=== PATIENT | female | born 1950 | race American Indian/Alaskan Native ===

== ENCOUNTER 2017-09-09 13:38 | Inpatient (IN) | payer BC, MEDICARE ==
[2017-09-09] MEDS ORDERED: Albuterol-Ipratrop 3 mg / 0.5 (3 ml) UD IH PRN (22:19)
--- NOTE | 2017-09-09 22:31 | CP.PCM.HP ---
History of Present Illness - History of Present Illness History of Present Illness: PCP: Po De Santiago MD Chief complaint: Right side weakness The patient was seen and examined in the Rehab Unit with the present HPI: The hx was obtained from the patient's and after review of the medical records. The patient was transferred from the [facility] to the [facility] unit for continued care and Physical therapy. She is a 67 years old female with hx of HTN, CAD with stents, Multiple CVAs, admitted to the [facility] on 08/12/17 and discharged on 08/13/17 with right hand weakness and diagnosed with TIA. she was again admitted to the [facility] on with Motor Aphasia, Right side weakness and diagnosed with acute CVA. With MOLD [facility]LOADER on 09/01/17 she was transferred to the ICU with respiratory Distress and hypertension while in [facility]. LYRIC showed an Aneurysmal Atrial Septum with a Tiny PFO. at present the patient still has dense Right hemiplegia. PMH: HTN; DM II Insulin requiring; CAD with stents; CKD II; Multiples CVA the first with right side weakness on 04/10; GERD PSH: cataract extraction 2014; Cardiac Cath; Benign fibroid tumor Removed 2000; benign breast Tumor removed 1978, Permanent Pacemaker SH: never Smoked; No ETOH; No illegal substance use; live with family FH: States: No Known family hx Allergies: Sulfa Antibiotics; Oxycodone; Bacitracin; Fentanyl Medication: Reviewed Present on Admission - Present on Admission Any Indicators Present on Admission: No History of DVT/PE: No History of Uncontrolled Diabetes: No Urinary Catheter: No Decubitus Ulcer Present: No Review of Systems - Review of Systems Review of Systems: Renew of system is limited because of the patient;s dysarthria - Constitutional Constitutional: absent: Anorexia, Chills, Fever, Headache - EENT Eyes: Requires Corrective Lenses. absent: Diplopia, Floaters Ears: absent: Decreased Hearing, Ear Discharge, Tinnitus Nose/Mouth/Throat: absent: Epistaxis, Nasal Congestion, Sinus Pain, Sinus Pressure - Cardiovascular Cardiovascular: absent: Chest Pain - Respiratory Respiratory: absent: Cough, Dyspnea - Gastrointestinal Gastrointestinal: Constipation. absent: Diarrhea, Vomiting - Genitourinary Genitourinary: absent: Dysuria, Flank Pain, Hematuria - Musculoskeletal Musculoskeletal: Muscle Weakness - Integumentary Integumentary: absent: Skin Ulcer, Swelling - Neurological Neurological: Focal Weakness. absent: Confusion - Psychiatric Psychiatric: absent: Anxiety, Depression, Panic Attacks - Endocrine Endocrine: absent: Palpitations, Polydipsia, Polyphagia, Polyuria - Hematologic/Lymphatic Hematologic: absent: Easy Bleeding, Easy Bruising Past Patient History - Infectious Disease Hx of Infectious Diseases: None - Tetanus Immunizations Tetanus Immunization: Unknown - Past Medical History & Family History Past Medical History?: Yes - Past Social History Smoking Status: Never Smoked Chewing Tobacco Use: No Cigar Use: No Alcohol: None Drugs: Denies Home Situation {Lives}: With Family - CARDIAC Hx Cardiac Disorders: Yes Hx Hypertension: Yes - PULMONARY Hx Respiratory Disorders: No - NEUROLOGICAL HX Cerebrovascular Accident: Yes (multiple ischemic strokes) - HEENT Hx Cataracts: Yes (bl sx 2014) - RENAL Hx Chronic Kidney Disease: Yes Other/Comment: stage 2 renal disease - ENDOCRINE/METABOLIC Hx Diabetes Mellitus Type 2: Yes - HEMATOLOGICAL/ONCOLOGICAL Hx Blood Disorders: No - INTEGUMENTARY Hx Dermatological Problems: Yes Other/Comment: b/l skin discolorations both legs and itchy skin - MUSCULOSKELETAL/RHEUMATOLOGICAL Hx Musculoskeletal Disorders: No Hx Falls: No Other/Comment: 5th toe right ft turn inward pt keeps bandaid on toe to protect nail, 2nd toe crooked instep turns inward,left foot bunyon - GASTROINTESTINAL Hx Gastrointestinal Disorders: Yes Hx Gastroesophageal Reflux: Yes Other/Comment: H.Pylori - GENITOURINARY/GYNECOLOGICAL Hx Genitourinary Disorders: No - PSYCHIATRIC Hx Emotional Abuse: No Hx Physical Abuse: No Hx Substance Use: No - SURGICAL HISTORY Hx Cardiac Catheterization: Yes (2012) Other/Comment: pacemaker, breast sx 05/29/1984 left benign tumor, benign fibroid tumor removal 2000, colon polyps removed via colonoscopy, fishbome extraction via bronchoscopy from throat - ANESTHESIA Hx Anesthesia Reactions: Yes ("AWARE OF SURROUNDINGS BUT UNABLE TO MOVE FOR A WHILE") Hx Malignant Hyperthermia: No Meds Allergies/Adverse Reactions: Allergies Allergy/AdvReac Type Severity Reaction Status Date / Time Sulfa (Sulfonamide Allergy Severe RASH Verified 08/12/17 08:03 Antibiotics) acetaminophen [From Percocet] AdvReac Severe NAUSEA/VOMI Verified 08/12/17 08:03 TING oxycodone HCl [From Percocet] AdvReac Severe NAUSEA/VOMI Verified 08/12/17 08:03 TING bacitracin AdvReac Mild RASH Verified 08/12/17 08:03 clonidine AdvReac Mild "FEELING Verified 08/12/17 08:03 VERY VAGUE & CLOUDY WHEN TAKING" fentanyl AdvReac VOMITING Verified 08/12/17 08:03 Physical Exam - Constitutional Appears: No Acute Distress - Head Exam Head Exam: ATRAUMATIC, NORMAL INSPECTION, NORMOCEPHALIC - Eye Exam Eye Exam: EOMI, Normal appearance Pupil Exam: NORMAL ACCOMODATION, PERRL - ENT Exam ENT Exam: Mucous Membranes Dry, Normal Exam. absent: Normal External Ear Exam - Neck Exam Neck exam: Positive for: Full Rom, Normal Inspection. Negative for: Lymphadenopathy, Tenderness - Respiratory Exam Respiratory Exam: Clear to Auscultation Bilateral. absent: Rales, Rhonchi, Wheezes - Cardiovascular Exam Cardiovascular Exam: REGULAR RHYTHM, RRR, +S1, +S2 - GI/Abdominal Exam GI & Abdominal Exam: Normal Bowel Sounds, Soft. absent: Mass, Organomegaly, Tenderness - Rectal Exam Rectal Exam: Deferred - Extremities Exam Extremities exam: Positive for: normal inspection. Negative for: pedal edema Additional comments: Right ankle tenderness - Back Exam Back exam: NORMAL INSPECTION. absent: CVA tenderness (L), CVA tenderness (R) - Neurological Exam Additional comments: Awake, alert, oritnted, right facial droop, dysarthric, motor strength 0/5 at right upper extremity and1/5 at right lower extremity - Psychiatric Exam Psychiatric exam: Normal Affect, Normal Mood - Skin Skin Exam: Dry, Intact, Normal Color, Warm Results - Labs Labs: Laboratory Results - last 24 hr 09/09/17 22:18 POC Glucose (mg/dL) 159 H Assessment & Plan - Assessment and Plan (Free Text) Assessment: #. Acute CVA with right hemiplegia #. HTN #. DM II Insulin requiring #. CAD Plan: 67 years old female with hx of HTN, CAD with stents, Multiple CVAs, admitted to the [facility] on 08/12/17 and discharged on 08/13/17 with right hand weakness and diagnosed with TIA. She was again admitted to the [facility] on 08/29/17 with Motor Aphasia, Right side weakness and diagnosed with acute CVA. #. Acute CVA with right hemiplegia - Consult Dr Strell Surgical Rn - OT/PT - Speech therapy - ASA - Lipitor - Coumadin #. HTN - Procardia XL - Cozaar -Clonidine - Follow Blood Pressure #. DM II Insulin requiring - Levemir - Regular insulin sliding scale according to accucheck - HbA1c 8.0 on 08/29/17 #. CAD with stent - ASA - Lipitor #. Stress Ulcer Prophylaxis with Pepcid #. DVT prophylaxis: Patient on Coumadin #. Code Status: Full - Date & Time Date: 09/09/17 Time: 22:31
[2017-09-10] MEDS: Insulin Detemir 100 Units/ml Inj SC SCH ×2 (00:03→21:26)
[2017-09-10] MEDS: Insulin Regular 100 units/ml SC SCH ×5 (00:05→21:27)
[2017-09-10 01:05] VITALS: BMI 28.0
[2017-09-10 06:54] LABS: HEMOGLOBIN 8.8 g/dL (12.0-16.0); MEAN CELL VOLUME 85.4 fl (81.0-99.0); MEAN CORPUSCULAR HEMOGLOBIN 26.6 pg (27.0-31.0); MEAN CORPUSCULAR HGB CONC 31.2 g/dL (33.0-37.0); RBC 3.31 Mil/uL (3.80-5.20); RED CELL DISTRIBUTION WIDTH 17.2 % (11.5-14.5); WHITE BLOOD COUNT 6.7 K/uL (4.8-10.8)
[2017-09-10 07:06] LABS: ALB/GLOB RATIO 0.8 (1.0-2.1); ALBUMIN 2.8 g/dL (3.5-5.0); CALCIUM 8.4 mg/dL (8.4-10.2)
[2017-09-10 07:10] LABS: INR 1.4 (0.9-1.2); PROTHROMBIN TIME 15.5 Seconds (9.8-13.1)
[2017-09-10] MEDS: NIFEdipine 60 mg ER Tab PO SCH (09:18)
[2017-09-10] MEDS: POLYETHYLENE GLYCOL 3350 17 GM/Dose PACKET PO SCH (09:18)
--- NOTE | 2017-09-10 11:14 | CP.PCM.PN ---
Subjective - Date & Time of Evaluation Date of Evaluation: 09/10/17 Time of Evaluation: 10:00 - Subjective Subjective: Patient seen and examined. Therapist claimed she was complaining of pain and swelling on the right ankle. Unable to determine if she had trauma since patient has expressive aphasia. Objective - Vital Signs/Intake and Output Vital Signs (last 24 hours): Temp Pulse Resp BP Pulse Ox 98.1 F 96 H 19 147/61 96 09/10/17 09:06 09/10/17 09:18 09/10/17 09:06 09/10/17 09:18 09/10/17 09:06 - Medications Medications: Current Medications Acetaminophen (Tylenol 325mg Tab) 650 mg PO Q4 PRN PRN Reason: Fever >100.4 F Acetaminophen (Tylenol 325mg Tab) 650 mg PO Q4 PRN PRN Reason: Pain, Mild (1-3) Albuterol/Ipratropium (Duoneb 3 Mg/0.5 Mg (3 Ml) Ud) 3 ml IH RQ6 PRN PRN Reason: Shortness of Breath Aspirin (Ecotrin) 81 mg PO DAILY [facility] Last Admin: 09/10/17 09:18 Dose: 81 mg Atorvastatin Calcium (Lipitor) 20 mg PO DIN [facility] Carvedilol (Coreg) 12.5 mg PO BID [facility] Last Admin: 09/10/17 09:16 Dose: 12.5 mg Clonidine HCl (Catapres) 0.1 mg PO BID [facility] Last Admin: 09/10/17 09:14 Dose: 0.1 mg Docusate Sodium (Colace Liquid) 100 mg PO TID [facility] Last Admin: 09/10/17 09:16 Dose: 100 mg Famotidine (Pepcid) 20 mg PO DAILY [facility] Last Admin: 09/10/17 09:18 Dose: 20 mg Furosemide (Lasix) 20 mg PO DAILY [facility] Last Admin: 09/10/17 09:18 Dose: 20 mg Insulin Detemir (Levemir) 10 units SC HS [facility] Last Admin: 09/10/17 00:03 Dose: 10 units Insulin Human Regular (Humulin R) 0 units SC [facility] PRN Reason: Protocol Last Admin: 09/10/17 07:00 Dose: Not Given Losartan Potassium (Cozaar) 100 mg PO DAILY [facility] Last Admin: 09/10/17 09:17 Dose: 100 mg Nifedipine (Procardia Xl) 60 mg PO DAILY [facility] Last Admin: 09/10/17 09:18 Dose: 60 mg Ondansetron HCl (Zofran Odt) 4 mg PO Q8H PRN PRN Reason: Nausea/Vomiting Polyethylene Glycol (Miralax) 17 gm PO DAILY [facility] Last Admin: 09/10/17 09:18 Dose: 17 gm Valproate Sodium (Depakene Cap) 250 mg PO BID [facility] Warfarin Sodium (Coumadin) 3 mg PO 1800 [facility] PRN Reason: Protocol Stop: 09/10/17 18:01 Warfarin Sodium (Coumadin) 4 mg PO QD5 [facility] PRN Reason: Protocol Stop: 09/10/17 17:01 - Labs Labs: 09/10/17 06:45 09/10/17 06:45 PT 15.5 Seconds (9.8-13.1) H 09/10/17 06:45 INR 1.4 (0.9-1.2) H 09/10/17 06:45 - Constitutional Appears: No Acute Distress - Head Exam Head Exam: ATRAUMATIC - Eye Exam Eye Exam: absent: Scleral icterus - ENT Exam ENT Exam: Mucous Membranes Moist - Neck Exam Neck Exam: absent: Meningismus - Respiratory Exam Respiratory Exam: absent: Rhonchi, Wheezes, Respiratory Distress - Cardiovascular Exam Cardiovascular Exam: REGULAR RHYTHM, +S1, +S2 - GI/Abdominal Exam GI & Abdominal Exam: Soft. absent: Tenderness - Rectal Exam Rectal Exam: Deferred - Extremities Exam Extremities Exam: Joint Swelling (right ankle swollen and tender) - Back Exam Back Exam: absent: tenderness - Neurological Exam Neurological Exam: Alert (orientation unable to gauge) - Psychiatric Exam Psychiatric exam: Normal Affect - Skin Skin Exam: Dry, Intact Assessment and Plan - Assessment and Plan (Free Text) Assessment: 67 yo female with history of HTN, CAD with stents, previous CVA and Atrial Flutter with pacemaker initially admitted as TIA at [facility] on 2017 then turned into a full blown ischemic stroke of the left frontal on 2017 with right facial and right arm weakness accompanied with expressive aphasia. Patient was on low dose Eliquis 2.5mg PO BID then raised to therapeutic dose of 5mg PO BID when patient developed full blown stroke. Then on 09/03/2017 it was switched to Coumadin because of patient's poor renal function which has improved since then. Patient was transferred to Acute Rehab for PT/OT/ST. 1. Acute CVA with right hemiplegia/expressive aphasia Dr Connro on physiatry consult continue ASA and statin reconsult Dr Zhao for follow up and inquire if we can resume Eliquis at therapeutic dose (patient was under dosed at 2.5mg) INR: 1.4 Coumadin 4mg PO today 2. HTN BP stable continue Losartan, Coreg, Clonidine, Procardia XL and Lasix 3. DM II BS controlled Levemir 10 units SC HS accucheck with Regular Insulin coverage HbA1c 8.0 4. CAD with stent continue ASA, BB and statin 5. Atrial flutter on pacemaker on Coumadin and
--- NOTE | 2017-09-10 11:40 | CP.PCM.PN ---
Subjective - Date & Time of Evaluation Date of Evaluation: 09/10/17 Time of Evaluation: 11:37 - Subjective Subjective: Ms. Ricki Riojas was seen and examined at the therapy room. She is alert with expressive aphasia with few clear words being uttered such as " yes, I'm fine". She communicates using non verbal cues such as nodding or shaking her head with occasional clear words being uttered.She denies any headache, dizziness, lightheadedness, blurred vision. She remains with Right facial droop, right upper arm flaccid, and right lower extremity weakness. Her right ankle is swollen and currently wrapped with clarita bandage. Pending right foot x-ray. She is able to follow simple commands. There was no untoward events overnight. Objective - Vital Signs/Intake and Output Vital Signs (last 24 hours): Temp Pulse Resp BP Pulse Ox 98.1 F 96 H 19 147/61 96 09/10/17 09:06 09/10/17 09:18 09/10/17 09:06 09/10/17 09:18 09/10/17 09:06 - Medications Medications: Current Medications Acetaminophen (Tylenol 325mg Tab) 650 mg PO Q4 PRN PRN Reason: Fever >100.4 F Acetaminophen (Tylenol 325mg Tab) 650 mg PO Q4 PRN PRN Reason: Pain, Mild (1-3) Albuterol/Ipratropium (Duoneb 3 Mg/0.5 Mg (3 Ml) Ud) 3 ml IH RQ6 PRN PRN Reason: Shortness of Breath Aspirin (Ecotrin) 81 mg PO DAILY [facility] Last Admin: 09/10/17 09:18 Dose: 81 mg Atorvastatin Calcium (Lipitor) 20 mg PO DIN [facility] Carvedilol (Coreg) 12.5 mg PO BID [facility] Last Admin: 09/10/17 09:16 Dose: 12.5 mg Clonidine HCl (Catapres) 0.1 mg PO BID [facility] Last Admin: 09/10/17 09:14 Dose: 0.1 mg Docusate Sodium (Colace Liquid) 100 mg PO TID [facility] Last Admin: 09/10/17 09:16 Dose: 100 mg Famotidine (Pepcid) 20 mg PO DAILY [facility] Last Admin: 09/10/17 09:18 Dose: 20 mg Furosemide (Lasix) 20 mg PO DAILY [facility] Last Admin: 09/10/17 09:18 Dose: 20 mg Insulin Detemir (Levemir) 10 units SC HS [facility] Last Admin: 09/10/17 00:03 Dose: 10 units Insulin Human Regular (Humulin R) 0 units SC ACHS [facility] PRN Reason: Protocol Last Admin: 09/10/17 07:00 Dose: Not Given Losartan Potassium (Cozaar) 100 mg PO DAILY [facility] Last Admin: 09/10/17 09:17 Dose: 100 mg Nifedipine (Procardia Xl) 60 mg PO DAILY [facility] Last Admin: 09/10/17 09:18 Dose: 60 mg Ondansetron HCl (Zofran Odt) 4 mg PO Q8H PRN PRN Reason: Nausea/Vomiting Polyethylene Glycol (Miralax) 17 gm PO DAILY [facility] Last Admin: 09/10/17 09:18 Dose: 17 gm Valproate Sodium (Depakene Cap) 250 mg PO BID [facility] Warfarin Sodium (Coumadin) 4 mg PO QD5 [facility] PRN Reason: Protocol Stop: 09/10/17 17:01 - Labs Labs: 09/10/17 06:45 09/10/17 06:45 PT 15.5 Seconds (9.8-13.1) H 09/10/17 06:45 INR 1.4 (0.9-1.2) H 09/10/17 06:45 - Constitutional Appears: No Acute Distress - Head Exam Head Exam: NORMAL INSPECTION - Neurological Exam Neurological Exam: Alert, Awake Neuro motor strength exam: Left Upper Extremity: 5, Right Upper Extremity: 0, Left Lower Extremity: 5, Right Lower Extremity: 2/1 Additional comments: She has expressive aphasia, communicates using non verbal cues such as nodding or shaking her head with occasional clear words being uttered. She is able to follow commands. Sensation remains asymmetrical. Assessment and Plan (1) Acute CVA (cerebrovascular accident) Assessment & Plan: Case discussed with Dr. Zhao, continue all current medical including anti- platelet and anti coagulant, physical, occupational, and speech therapies. Recommend blood pressure control, blood sugar control. Status: Acute
--- NOTE | 2017-09-10 12:30 | RAD ---
PROCEDURE: Right Ankle Radiographs. HISTORY: pain and swelling on right ankle COMPARISON: None FINDINGS: BONES: No acute fracture. JOINTS: Ankle mortise maintained. Talar dome intact SOFT TISSUES: Soft-tissue swelling. OTHER FINDINGS: None. IMPRESSION: No demonstrated fracture or dislocation.
[2017-09-10] MEDS: Valproic Acid 250 mg/5 ml UD Cup PO SCH ×2 (13:15→17:36)
--- NOTE | 2017-09-10 16:33 | CP.PCM.CON ---
History of Present Illness - History of Present Illness History of Present Illness: Dr Connor PMR consultation on Mariola Robison, right hand dominant female born [birth year] who has been admitted to [facility] for acute inpatient rehabilitation following a left CVA with dense right HP. There are some word findings issues as well for Mariola Review of Systems - Constitutional Constitutional: absent: Chills - EENT Eyes: absent: Blind Spots, Blurred Vision Ears: absent: Decreased Hearing, Ear Discharge Nose/Mouth/Throat: absent: Nasal Congestion - Cardiovascular Cardiovascular: absent: Chest Pain - Respiratory Respiratory: absent: Dyspnea, Hemoptysis - Gastrointestinal Gastrointestinal: absent: Belching - Genitourinary Genitourinary: absent: Dysuria - Musculoskeletal Musculoskeletal: Abnormal Gait - Integumentary Integumentary: absent: Acne, Bleeding Lesions - Neurological Neurological: Lack of Coordination, Weakness. absent: Abnormal Hearing, Abnormal Movements - Psychiatric Psychiatric: absent: Anxiety Past Patient History - Infectious Disease Hx of Infectious Diseases: None - Tetanus Immunizations Tetanus Immunization: Unknown - Past Medical History & Family History Past Medical History?: Yes - Past Social History Smoking Status: Never Smoked Chewing Tobacco Use: No Cigar Use: No Alcohol: None Drugs: Denies Home Situation {Lives}: With Family - CARDIAC Hx Cardiac Disorders: Yes Hx Hypertension: Yes - PULMONARY Hx Respiratory Disorders: No - NEUROLOGICAL HX Cerebrovascular Accident: Yes - HEENT Hx Cataracts: Yes (bl sx 2014) - RENAL Hx Chronic Kidney Disease: Yes Other/Comment: stage 2 renal disease - ENDOCRINE/METABOLIC Hx Diabetes Mellitus Type 2: Yes - HEMATOLOGICAL/ONCOLOGICAL Hx Blood Disorders: No - INTEGUMENTARY Hx Dermatological Problems: Yes Other/Comment: b/l skin discolorations both legs and itchy skin - MUSCULOSKELETAL/RHEUMATOLOGICAL Hx Musculoskeletal Disorders: No Hx Falls: No Other/Comment: 5th toe right ft turn inward pt keeps bandaid on toe to protect nail, 2nd toe crooked instep turns inward,left foot bunyon - GASTROINTESTINAL Hx Gastroesophageal Reflux: Yes - GENITOURINARY/GYNECOLOGICAL Hx Genitourinary Disorders: No - PSYCHIATRIC Hx Emotional Abuse: No Hx Physical Abuse: No Hx Substance Use: No - SURGICAL HISTORY Hx Cardiac Catheterization: Yes (2012) Other/Comment: pacemaker, breast sx 05/29/1984 left benign tumor, benign fibroid tumor removal 2000, colon polyps removed via colonoscopy, fishbome extraction via bronchoscopy from throat - ANESTHESIA Hx Anesthesia Reactions: Yes ("AWARE OF SURROUNDINGS BUT UNABLE TO MOVE FOR A WHILE") Hx Malignant Hyperthermia: No Meds Allergies/Adverse Reactions: Allergies Allergy/AdvReac Type Severity Reaction Status Date / Time Sulfa (Sulfonamide Allergy Severe RASH Verified 09/10/17 05:07 Antibiotics) acetaminophen [From Percocet] AdvReac Severe NAUSEA/VOMI Verified 09/10/17 05:07 TING oxycodone HCl [From Percocet] AdvReac Severe NAUSEA/VOMI Verified 09/10/17 05:07 TING bacitracin AdvReac Mild RASH Verified 09/10/17 05:07 clonidine AdvReac Mild "FEELING Verified 09/10/17 05:07 VERY VAGUE & CLOUDY WHEN TAKING" fentanyl AdvReac VOMITING Verified 09/10/17 05:07 - Medications Medications: Current Medications Acetaminophen (Tylenol 325mg Tab) 650 mg PO Q4 PRN PRN Reason: Fever >100.4 F Acetaminophen (Tylenol 325mg Tab) 650 mg PO Q4 PRN PRN Reason: Pain, Mild (1-3) Albuterol/Ipratropium (Duoneb 3 Mg/0.5 Mg (3 Ml) Ud) 3 ml IH RQ6 PRN PRN Reason: Shortness of Breath Aspirin (Ecotrin) 81 mg PO DAILY [facility] Last Admin: 09/10/17 09:18 Dose: 81 mg Atorvastatin Calcium (Lipitor) 20 mg PO DIN [facility] Carvedilol (Coreg) 12.5 mg PO BID [facility] Last Admin: 09/10/17 09:16 Dose: 12.5 mg Clonidine HCl (Catapres) 0.1 mg PO BID [facility] Last Admin: 09/10/17 09:14 Dose: 0.1 mg Docusate Sodium (Colace Liquid) 100 mg PO TID [facility] Last Admin: 09/10/17 13:15 Dose: 100 mg Famotidine (Pepcid) 20 mg PO DAILY [facility] Last Admin: 09/10/17 09:18 Dose: 20 mg Furosemide (Lasix) 20 mg PO DAILY [facility] Last Admin: 09/10/17 09:18 Dose: 20 mg Insulin Detemir (Levemir) 10 units SC HS [facility] Last Admin: 09/10/17 00:03 Dose: 10 units Insulin Human Regular (Humulin R) 0 units SC ACHS [facility] PRN Reason: Protocol Last Admin: 09/10/17 13:16 Dose: 1 units Losartan Potassium (Cozaar) 100 mg PO DAILY [facility] Last Admin: 09/10/17 09:17 Dose: 100 mg Nifedipine (Procardia Xl) 60 mg PO DAILY [facility] Last Admin: 09/10/17 09:18 Dose: 60 mg Ondansetron HCl (Zofran Odt) 4 mg PO Q8H PRN PRN Reason: Nausea/Vomiting Polyethylene Glycol (Miralax) 17 gm PO DAILY [facility] Last Admin: 09/10/17 09:18 Dose: 17 gm Valproate Sodium (Depakene Oral Soln) 250 mg PO BID [facility] Last Admin: 09/10/17 13:15 Dose: 250 mg Warfarin Sodium (Coumadin) 4 mg PO QD5 [facility] PRN Reason: Protocol Stop: 09/10/17 17:01 Physical Exam - Constitutional Appears: Non-toxic - Head Exam Head Exam: ATRAUMATIC - Eye Exam Eye Exam: EOMI - ENT Exam ENT Exam: Mucous Membranes Moist - Respiratory Exam Respiratory Exam: NORMAL BREATHING PATTERN - Cardiovascular Exam Cardiovascular Exam: REGULAR RHYTHM - GI/Abdominal Exam GI & Abdominal Exam: absent: Distended, Firm - Extremities Exam Extremities exam: Negative for: calf tenderness - Neurological Exam Neurological exam: Alert, CN II-XII Intact (some dysarthria), Oriented x3 - Psychiatric Exam Psychiatric exam: Normal Affect, Normal Mood Results - Vital Signs Recent Vital Signs: Last Vital Signs Temp 98.1 F 09/10/17 09:06 Pulse 96 H 09/10/17 09:18 Resp 19 09/10/17 09:06 BP 147/61 09/10/17 09:18 Pulse Ox 96 09/10/17 09:06 - Labs Result Diagrams: 09/10/17 06:45 09/10/17 06:45 Labs: Laboratory Results - last 24 hr 09/09/17 09/10/17 09/10/17 22:18 06:16 06:45 WBC 6.7 RBC 3.31 L Hgb 8.8 L Hct 28.3 L MCV 85.4 MCH 26.6 L MCHC 31.2 L RDW 17.2 H Plt Count 165 PT INR Sodium Potassium Chloride Carbon Dioxide Anion Gap BUN Creatinine Est GFR ( Amer) Est GFR (Non-Af Amer) POC Glucose (mg/dL) 159 H 102 Random Glucose Calcium Total Bilirubin AST ALT Alkaline Phosphatase Total Protein Albumin Globulin Albumin/Globulin Ratio 09/10/17 09/10/17 09/10/17 06:45 06:45 11:31 WBC RBC Hgb Hct MCV MCH MCHC RDW Plt Count PT 15.5 H INR 1.4 H Sodium 144 Potassium 3.7 Chloride 109 H Carbon Dioxide 25 Anion Gap 14 BUN 18 H Creatinine 1.1 Est GFR ( Amer) 60 Est GFR (Non-Af Amer) 50 POC Glucose (mg/dL) 175 H Random Glucose 92 Calcium 8.4 Total Bilirubin 0.3 AST 18 ALT 30 Alkaline Phosphatase 58 Total Protein 6.3 Albumin 2.8 L Globulin 3.5 Albumin/Globulin Ratio 0.8 L Assessment & Plan - Assessment and Plan (Free Text) Assessment: PT/OT to continue to help increase functional independence Team conference for d/c planning Pain: controlled Vascular: no evidence of DVT GI: No evidence of constipation or diarrhea Patient is an excellent acute rehabilitation candidate and will have focused speech, PT, OT and recreational therapy to help facilitate a safe and appropriate d/c plan impairment code 01.2
--- NOTE | 2017-09-10 17:55 | PCM.OPOC ---
Physiatry Overall Plan of Care - Overall Plan of Care Estimated Length of Stay in Weeks: 3 Rehab Impairment: Mobility, Gait, Speech, Balance, Coordination Etiologic Diagnosis: Cerebrovascular Accident Rehab/Medical Prognosis: Fair - Anticipated Interventions Physical Therapy:: Yes Occupational Therapy:: Yes Speech Therapy:: Yes Recreational Therapy:: Yes - Therapy Goals Bed Mobility: Minimal Assistance Ambulation: Moderate Assistance Functional Positional Changes:: Minimal Assistance - Discharge Plan Identification of Barriers to Discharge: Home Situation Discharge Destination: Subacute
--- NOTE | 2017-09-10 20:13 | CP.PCM.CON ---
History of Present Illness - History of Present Illness History of Present Illness: Consult note - Dr. King 67 year old female patient with PMHx of HTN; DM II, CAD with stents, CKD II, Multiples CVA, GERD and gout was seen and evaluated at bedside for right ankle pain. Patient is a poor historian but obtained information from patient's . Patient appears to be resting comfortably in her bed. Patient was recently transferred from [facility] for further physical therapy and continued care. Patient's denies of any recent trauma to the right ankle and reports that he noticed the pain when he was massaging her feet. Patient's denies of any acute events which could have brought the ankle pain. Patient's denies of any recent F/N/V/C. PMHx of HTN; DM II, CAD with stents, CKD II, Multiples CVA, GERD and gout PSHx: cataract extraction 2014; Cardiac Cath; Benign fibroid tumor Removed 2000 ; benign breast Tumor removed 1978, Permanent Pacemaker SHx: never Smoked; No EtOH; No illegal substance use; live with family Allergies: Sulfa Antibiotics; Oxycodone; Bacitracin; Fentanyl Review of Systems - Constitutional Constitutional: As Per HPI Past Patient History - Infectious Disease Hx of Infectious Diseases: None - Tetanus Immunizations Tetanus Immunization: Unknown - Past Medical History & Family History Past Medical History?: Yes - Past Social History Smoking Status: Never Smoked Chewing Tobacco Use: No Cigar Use: No Alcohol: None Drugs: Denies Home Situation {Lives}: With Family - CARDIAC Hx Cardiac Disorders: Yes Hx Hypertension: Yes - PULMONARY Hx Respiratory Disorders: No - NEUROLOGICAL HX Cerebrovascular Accident: Yes - HEENT Hx Cataracts: Yes ( sx 2014) - RENAL Hx Chronic Kidney Disease: Yes Other/Comment: stage 2 renal disease - ENDOCRINE/METABOLIC Hx Diabetes Mellitus Type 2: Yes - HEMATOLOGICAL/ONCOLOGICAL Hx Blood Disorders: No - INTEGUMENTARY Hx Dermatological Problems: Yes Other/Comment: b/l skin discolorations both legs and itchy skin - MUSCULOSKELETAL/RHEUMATOLOGICAL Hx Musculoskeletal Disorders: No Hx Falls: No Other/Comment: 5th toe right ft turn inward pt keeps bandaid on toe to protect nail, 2nd toe crooked instep turns inward,left foot bunyon - GASTROINTESTINAL Hx Gastroesophageal Reflux: Yes - GENITOURINARY/GYNECOLOGICAL Hx Genitourinary Disorders: No - PSYCHIATRIC Hx Emotional Abuse: No Hx Physical Abuse: No Hx Substance Use: No - SURGICAL HISTORY Hx Cardiac Catheterization: Yes (2012) Other/Comment: pacemaker, breast sx 05/29/1984 left benign tumor, benign fibroid tumor removal 2000, colon polyps removed via colonoscopy, fishbome extraction via bronchoscopy from throat - ANESTHESIA Hx Anesthesia Reactions: Yes ("AWARE OF SURROUNDINGS BUT UNABLE TO MOVE FOR A WHILE") Hx Malignant Hyperthermia: No Meds Allergies/Adverse Reactions: Allergies Allergy/AdvReac Type Severity Reaction Status Date / Time Sulfa (Sulfonamide Allergy Severe RASH Verified 09/10/17 05:07 Antibiotics) acetaminophen [From Percocet] AdvReac Severe NAUSEA/VOMI Verified 09/10/17 05:07 TING oxycodone HCl [From Percocet] AdvReac Severe NAUSEA/VOMI Verified 09/10/17 05:07 TING bacitracin AdvReac Mild RASH Verified 09/10/17 05:07 clonidine AdvReac Mild "FEELING Verified 09/10/17 05:07 VERY VAGUE & CLOUDY WHEN TAKING" fentanyl AdvReac VOMITING Verified 09/10/17 05:07 - Medications Medications: Current Medications Acetaminophen (Tylenol 325mg Tab) 650 mg PO Q4 PRN PRN Reason: Fever >100.4 F Acetaminophen (Tylenol 325mg Tab) 650 mg PO Q4 PRN PRN Reason: Pain, Mild (1-3) Albuterol/Ipratropium (Duoneb 3 Mg/0.5 Mg (3 Ml) Ud) 3 ml IH RQ6 PRN PRN Reason: Shortness of Breath Aspirin (Ecotrin) 81 mg PO DAILY [facility] Last Admin: 09/10/17 09:18 Dose: 81 mg Atorvastatin Calcium (Lipitor) 20 mg PO DIN [facility] Last Admin: 09/10/17 17:36 Dose: 20 mg Carvedilol (Coreg) 12.5 mg PO BID [facility] Last Admin: 09/10/17 17:35 Dose: 12.5 mg Clonidine HCl (Catapres) 0.1 mg PO BID [facility] Last Admin: 09/10/17 17:34 Dose: 0.1 mg Docusate Sodium (Colace Liquid) 100 mg PO TID [facility] Last Admin: 09/10/17 17:35 Dose: 100 mg Famotidine (Pepcid) 20 mg PO DAILY [facility] Last Admin: 09/10/17 09:18 Dose: 20 mg Furosemide (Lasix) 20 mg PO DAILY [facility] Last Admin: 09/10/17 09:18 Dose: 20 mg Insulin Detemir (Levemir) 10 units SC HS [facility] Last Admin: 09/10/17 00:03 Dose: 10 units Insulin Human Regular (Humulin R) 0 units SC ACHS [facility] PRN Reason: Protocol Last Admin: 09/10/17 17:36 Dose: 4 units Losartan Potassium (Cozaar) 100 mg PO DAILY [facility] Last Admin: 09/10/17 09:17 Dose: 100 mg Nifedipine (Procardia Xl) 60 mg PO DAILY [facility] Last Admin: 09/10/17 09:18 Dose: 60 mg Ondansetron HCl (Zofran Odt) 4 mg PO Q8H PRN PRN Reason: Nausea/Vomiting Polyethylene Glycol (Miralax) 17 gm PO DAILY [facility] Last Admin: 09/10/17 09:18 Dose: 17 gm Valproate Sodium (Depakene Oral Soln) 250 mg PO BID [facility] Last Admin: 09/10/17 17:36 Dose: 250 mg Physical Exam - Constitutional Appears: Well, Non-toxic, No Acute Distress - Extremities Exam Additional comments: Bilateral LE focused exam: VASC: DP/PT pulses are palpable 2/4 B/L. Cap refill time: < 3 seconds to all digits. Skin temperature warm to cool from proximal to distal. mild non-pitting edema noted at ankle joint DERM: no onen lesions, no inter digital maceration, nails are cut to hygenic length, no clinical suspicion of active infection NEURO: Epicritic and protective sensation intact ORTHO: no pain on palpation along the course of the peroneal tendons, posterior tibial tendon, no pain on palpation along the course of the ATFL or CFL ligament , no pain during plantarflexion, inversion and eversion. Pain present during passive dorsiflexion. Unable to asses MMT due to patient not responding to verbal commands well, no pain on palpation on the anterior ankle, no pain on palpation of the achilles tendon insertion or along the course of the tendon - Neurological Exam Neurological exam: Alert, Oriented x3 - Psychiatric Exam Psychiatric exam: Normal Affect, Normal Mood Results - Vital Signs Recent Vital Signs: Last Vital Signs Temp 98.1 F 09/10/17 09:06 Pulse 81 09/10/17 18:49 Resp 19 09/10/17 09:06 BP 153/71 H 09/10/17 18:49 Pulse Ox 100 09/10/17 17:25 - Labs Result Diagrams: 09/10/17 06:45 09/10/17 06:45 Labs: Laboratory Results - last 24 hr 09/09/17 09/10/17 09/10/17 22:18 06:16 06:45 WBC 6.7 RBC 3.31 L Hgb 8.8 L Hct 28.3 L MCV 85.4 MCH 26.6 L MCHC 31.2 L RDW 17.2 H Plt Count 165 PT INR Sodium Potassium Chloride Carbon Dioxide Anion Gap BUN Creatinine Est GFR ( Amer) Est GFR (Non-Af Amer) POC Glucose (mg/dL) 159 H 102 Random Glucose Calcium Total Bilirubin AST ALT Alkaline Phosphatase Total Protein Albumin Globulin Albumin/Globulin Ratio 09/10/17 09/10/17 09/10/17 06:45 06:45 11:31 WBC RBC Hgb Hct MCV MCH MCHC RDW Plt Count PT 15.5 H INR 1.4 H Sodium 144 Potassium 3.7 Chloride 109 H Carbon Dioxide 25 Anion Gap 14 BUN 18 H Creatinine 1.1 Est GFR ( Amer) 60 Est GFR (Non-Af Amer) 50 POC Glucose (mg/dL) 175 H Random Glucose 92 Calcium 8.4 Total Bilirubin 0.3 AST 18 ALT 30 Alkaline Phosphatase 58 Total Protein 6.3 Albumin 2.8 L Globulin 3.5 Albumin/Globulin Ratio 0.8 L 09/10/17 17:28 WBC RBC Hgb Hct MCV MCH MCHC RDW Plt Count PT INR Sodium Potassium Chloride Carbon Dioxide Anion Gap BUN Creatinine Est GFR ( Amer) Est GFR (Non-Af Amer) POC Glucose (mg/dL) 321 H Random Glucose Calcium Total Bilirubin AST ALT Alkaline Phosphatase Total Protein Albumin Globulin Albumin/Globulin Ratio Assessment & Plan - Assessment and Plan (Free Text) Assessment: 67 year old female patient with PMHx of HTN; DM II, CAD with stents, CKD II, Multiples CVA, GERD and gout evaluated for possible gouty attack Plan: Patient seen and evaluated at bedside Discussed patient in details with attending Dr. King Labs, vitals and charts reviewed X-rays of the right ankle ordered/reviewed - no signs of acute fracture, dislocations. Increase in soft tissue density consistent with soft tissue swelling UA ordered - pending DIMPLE bandage applied to the right ankle Podiatry to follow patient - Thank you for the consult and allowing to take part in patient care - Date & Time Date: 09/10/17 Time: 20:22
[2017-09-10] MEDS ORDERED: Patient's Own Med (Insulin Detemir [Levemir] 10 UNIT) SC SCH (22:00)
[2017-09-11] MEDS: Insulin Regular 100 units/ml SC SCH ×4 (06:57→21:41)
[2017-09-11 07:30] LABS: INR 1.4 (0.9-1.2); PROTHROMBIN TIME 15.9 Seconds (9.8-13.1)
[2017-09-11] MEDS: Valproic Acid 250 mg/5 ml UD Cup PO SCH ×2 (08:27→17:18)
[2017-09-11] MEDS: POLYETHYLENE GLYCOL 3350 17 GM/Dose PACKET PO SCH (08:28)
[2017-09-11] MEDS: NIFEdipine 60 mg ER Tab PO SCH (08:28)
--- NOTE | 2017-09-11 12:53 | CP.PCM.PN ---
Subjective - Date & Time of Evaluation Date of Evaluation: 09/11/17 Time of Evaluation: 12:51 - Subjective Subjective: Progress note - Dr. King 67 year old female patient with PMHx of HTN; DM II, CAD with stents, CKD II, Multiples CVA, GERD and gout was seen and evaluated at bedside for right ankle pain. Patient is alert and awake at the time of the visit and appears to be resting comfortably in her bed. Patient responds to the verbal commands by a head nod. Will visit the patient again when a family member is by bedside. Objective - Vital Signs/Intake and Output Vital Signs (last 24 hours): Temp Pulse Resp BP Pulse Ox 98 F 60 19 170/80 H 97 09/11/17 11:01 09/11/17 09:33 09/11/17 09:33 09/11/17 09:33 09/11/17 09:33 - Medications Medications: Current Medications Acetaminophen (Tylenol 325mg Tab) 650 mg PO Q4 PRN PRN Reason: Fever >100.4 F Acetaminophen (Tylenol 325mg Tab) 650 mg PO Q4 PRN PRN Reason: Pain, Mild (1-3) Last Admin: 09/11/17 11:01 Dose: 650 mg Albuterol/Ipratropium (Duoneb 3 Mg/0.5 Mg (3 Ml) Ud) 3 ml IH RQ6 PRN PRN Reason: Shortness of Breath Aspirin (Ecotrin) 81 mg PO DAILY [facility] Last Admin: 09/11/17 08:27 Dose: 81 mg Atorvastatin Calcium (Lipitor) 20 mg PO DIN [facility] Last Admin: 09/10/17 17:36 Dose: 20 mg Carvedilol (Coreg) 12.5 mg PO BID [facility] Last Admin: 09/11/17 08:26 Dose: 12.5 mg Clonidine HCl (Catapres) 0.1 mg PO BID [facility] Last Admin: 09/11/17 08:25 Dose: 0.1 mg Docusate Sodium (Colace Liquid) 100 mg PO TID [facility] Last Admin: 09/11/17 12:46 Dose: 100 mg Famotidine (Pepcid) 20 mg PO DAILY [facility] Last Admin: 09/11/17 08:28 Dose: 20 mg Furosemide (Lasix) 20 mg PO DAILY [facility] Last Admin: 09/11/17 08:28 Dose: 20 mg Insulin Detemir (Levemir) 10 units SC HS [facility] Last Admin: 09/10/17 21:26 Dose: 10 units Insulin Human Regular (Humulin R) 0 units SC [facility] PRN Reason: Protocol Last Admin: 09/11/17 11:30 Dose: 1 units Losartan Potassium (Cozaar) 100 mg PO DAILY [facility] Last Admin: 09/11/17 08:27 Dose: 100 mg Nifedipine (Procardia Xl) 60 mg PO DAILY [facility] Last Admin: 09/11/17 08:28 Dose: 60 mg Ondansetron HCl (Zofran Odt) 4 mg PO Q8H PRN PRN Reason: Nausea/Vomiting Polyethylene Glycol (Miralax) 17 gm PO DAILY [facility] Last Admin: 09/11/17 08:28 Dose: 17 gm Valproate Sodium (Depakene Oral Soln) 250 mg PO BID [facility] Last Admin: 09/11/17 08:27 Dose: 250 mg - Labs Labs: 09/10/17 06:45 09/10/17 06:45 PT 15.9 Seconds (9.8-13.1) H 09/11/17 05:30 INR 1.4 (0.9-1.2) H 09/11/17 05:30 - Constitutional Appears: Well, Non-toxic, No Acute Distress - Extremities Exam Additional comments: Bilateral LE focused exam: VASC: DP/PT pulses are palpable 2/4 B/L. Cap refill time: < 3 seconds to all digits. Skin temperature warm to cool from proximal to distal. mild non-pitting edema noted at ankle joint DERM: no onen lesions, no inter digital maceration, nails are cut to hygenic length, no clinical suspicion of active infection NEURO: Epicritic and protective sensation intact ORTHO: no pain on palpation along the course of the peroneal tendons, posterior tibial tendon, no pain on palpation along the course of the ATFL or CFL ligament , no pain during plantarflexion, inversion and eversion. Pain present during passive dorsiflexion. Unable to asses MMT due to patient not responding to verbal commands well, no pain on palpation on the anterior ankle, no pain on palpation of the achilles tendon insertion or along the course of the tendon - Neurological Exam Neurological Exam: Alert, Awake, Oriented x3 - Psychiatric Exam Psychiatric exam: Normal Affect, Normal Mood Assessment and Plan - Assessment and Plan (Free Text) Assessment: 67 year old female patient with PMHx of HTN; DM II, CAD with stents, CKD II, Multiples CVA, GERD and gout evaluated for possible arthritic changes Plan: Patient seen and evaluated at bedside Discussed patient in details with attending Dr. King Labs, vitals and charts reviewed X-rays of the right ankle ordered/reviewed - no signs of acute fracture, dislocations. mild subchondral sclerosis noted at the level of the ankle joint which can be consistent with arthritis. Increase in soft tissue density consistent with soft tissue swelling UA level: 5.9 - no evidence of acute gouty attack at this time Continue DIMPLE bandage to the right ankle Heat pack to the ankle PRN pain No acute intervention needed at this time Podiatry to sign-off at this time - please re-consult if needed
[2017-09-11] MEDS: Insulin Detemir 100 Units/ml Inj SC SCH (21:42)
[2017-09-12 07:36] LABS: INR 1.5 (0.9-1.2); PROTHROMBIN TIME 17.3 Seconds (9.8-13.1)
[2017-09-12] MEDS: Insulin Regular 100 units/ml SC SCH ×4 (07:50→21:33)
[2017-09-12] MEDS: POLYETHYLENE GLYCOL 3350 17 GM/Dose PACKET PO SCH (08:48)
[2017-09-12] MEDS: Valproic Acid 250 mg/5 ml UD Cup PO SCH ×2 (08:51→16:25)
[2017-09-12] MEDS: NIFEdipine 60 mg ER Tab PO SCH (08:52)
[2017-09-12] MEDS: Insulin Detemir 100 Units/ml Inj SC SCH (21:32)
[2017-09-13] MEDS: Insulin Regular 100 units/ml SC SCH ×4 (07:10→21:28)
[2017-09-13 07:28] LABS: INR 1.9 (0.9-1.2); PROTHROMBIN TIME 21.7 Seconds (9.8-13.1)
[2017-09-13] MEDS: Valproic Acid 250 mg/5 ml UD Cup PO SCH ×2 (08:16→16:34)
[2017-09-13] MEDS: NIFEdipine 60 mg ER Tab PO SCH (08:18)
[2017-09-13] MEDS: POLYETHYLENE GLYCOL 3350 17 GM/Dose PACKET PO SCH (08:19)
--- NOTE | 2017-09-13 12:38 | CP.PCM.PN ---
Subjective - Date & Time of Evaluation Date of Evaluation: 09/13/17 Time of Evaluation: 12:37 - Subjective Subjective: Ms. Ricki Riojas was seen and examined at the bedside. She is alert, oriented with expressive aphasia, but able to utter few clear words such as " okay, no, yes, " I feel better" She is able to follow simple commands. She remains with right facial droop, right upper extremity flaccid and minimal right lower leg movement. There was no untoward events overnight. Objective - Vital Signs/Intake and Output Vital Signs (last 24 hours): Temp Pulse Resp BP Pulse Ox 98.8 F 69 18 161/83 H 99 09/13/17 08:14 09/13/17 08:16 09/13/17 08:14 09/13/17 08:18 09/13/17 08:14 - Medications Medications: Current Medications Acetaminophen (Tylenol 325mg Tab) 650 mg PO Q4 PRN PRN Reason: Fever >100.4 F Acetaminophen (Tylenol 325mg Tab) 650 mg PO Q4 PRN PRN Reason: Pain scale 1-10. Last Admin: 09/12/17 23:46 Dose: 650 mg Albuterol/Ipratropium (Duoneb 3 Mg/0.5 Mg (3 Ml) Ud) 3 ml IH RQ6 PRN PRN Reason: Shortness of Breath Aspirin (Ecotrin) 81 mg PO DAILY [facility] Last Admin: 09/13/17 08:16 Dose: 81 mg Atorvastatin Calcium (Lipitor) 20 mg PO DIN [facility] Last Admin: 09/12/17 16:27 Dose: 20 mg Carvedilol (Coreg) 12.5 mg PO Q12 [facility] Clonidine HCl (Catapres) 0.2 mg PO Q12 [facility] Docusate Sodium (Colace Liquid) 100 mg PO TID [facility] Last Admin: 09/13/17 12:21 Dose: 100 mg Famotidine (Pepcid) 20 mg PO DAILY [facility] Last Admin: 09/13/17 08:17 Dose: 20 mg Furosemide (Lasix) 20 mg PO DAILY [facility] Last Admin: 09/13/17 08:17 Dose: 20 mg Ibuprofen (Motrin Tab) 400 mg PO Q4 PRN PRN Reason: foot pain 1-10 Insulin Detemir (Levemir) 10 units SC HS [facility] Last Admin: 09/12/17 21:32 Dose: 10 units Insulin Human Regular (Humulin R) 0 units SC ACHS [facility] PRN Reason: Protocol Last Admin: 09/13/17 12:20 Dose: 1 units Losartan Potassium (Cozaar) 100 mg PO DAILY [facility] Last Admin: 09/13/17 08:18 Dose: 100 mg Nifedipine (Procardia Xl) 60 mg PO DAILY [facility] Last Admin: 09/13/17 08:18 Dose: 60 mg Ondansetron HCl (Zofran Odt) 4 mg PO Q8H PRN PRN Reason: Nausea/Vomiting Polyethylene Glycol (Miralax) 17 gm PO DAILY [facility] Last Admin: 09/13/17 08:19 Dose: 17 gm Valproate Sodium (Depakene Oral Soln) 250 mg PO BID [facility] Last Admin: 09/13/17 08:16 Dose: 250 mg Warfarin Sodium (Coumadin) 5 mg PO QD5 [facility] PRN Reason: Protocol Stop: 09/13/17 17:01 - Labs Labs: 09/10/17 06:45 09/10/17 06:45 PT 21.7 Seconds (9.8-13.1) H 09/13/17 06:30 INR 1.9 (0.9-1.2) H 09/13/17 06:30 - Constitutional Appears: No Acute Distress - Head Exam Head Exam: NORMAL INSPECTION - Neurological Exam Neurological Exam: Alert, Awake Neuro motor strength exam: Left Upper Extremity: 5, Right Upper Extremity: 0, Left Lower Extremity: 5, Right Lower Extremity: 2/1 Additional comments: Neurological unchanged from previous examination. Assessment and Plan (1) Acute CVA (cerebrovascular accident) Assessment & Plan: Case discussed with Dr. Garcia, continue all current medical, physical, occupationa , and speech therapies. Recommend blood pressure control and glycemic control. Status: Acute
--- NOTE | 2017-09-13 16:44 | CP.PCM.PN ---
Subjective - Date & Time of Evaluation Date of Evaluation: 09/13/17 Time of Evaluation: 13:00 - Subjective Subjective: Patient was seen and examined today during physical therapy. She is complaining of some mild left lateral foot pain. Denies any trauma to the area. Denies any fevers, chills, cp, sob. Tolerating PT/OT well. Objective - Vital Signs/Intake and Output Vital Signs (last 24 hours): Temp Pulse Resp BP Pulse Ox 98.8 F 69 18 161/83 H 99 09/13/17 08:14 09/13/17 08:16 09/13/17 08:14 09/13/17 08:18 09/13/17 08:14 - Medications Medications: Current Medications Acetaminophen (Tylenol 325mg Tab) 650 mg PO Q4 PRN PRN Reason: Fever >100.4 F Acetaminophen (Tylenol 325mg Tab) 650 mg PO Q4 PRN PRN Reason: Pain scale 1-10. Last Admin: 09/12/17 23:46 Dose: 650 mg Albuterol/Ipratropium (Duoneb 3 Mg/0.5 Mg (3 Ml) Ud) 3 ml IH RQ6 PRN PRN Reason: Shortness of Breath Aspirin (Ecotrin) 81 mg PO DAILY [facility] Last Admin: 09/13/17 08:16 Dose: 81 mg Atorvastatin Calcium (Lipitor) 20 mg PO DIN [facility] Last Admin: 09/12/17 16:27 Dose: 20 mg Carvedilol (Coreg) 12.5 mg PO Q12 [facility] Clonidine HCl (Catapres) 0.2 mg PO Q12 [facility] Docusate Sodium (Colace Liquid) 100 mg PO TID [facility] Last Admin: 09/13/17 16:33 Dose: 100 mg Famotidine (Pepcid) 20 mg PO DAILY [facility] Last Admin: 09/13/17 08:17 Dose: 20 mg Furosemide (Lasix) 20 mg PO DAILY [facility] Last Admin: 09/13/17 08:17 Dose: 20 mg Ibuprofen (Motrin Tab) 400 mg PO Q4 PRN PRN Reason: foot pain 1-10 Insulin Detemir (Levemir) 10 units SC HS [facility] Last Admin: 09/12/17 21:32 Dose: 10 units Insulin Human Regular (Humulin R) 0 units SC ACHS [facility] PRN Reason: Protocol Last Admin: 09/13/17 12:20 Dose: 1 units Losartan Potassium (Cozaar) 100 mg PO DAILY [facility] Last Admin: 09/13/17 08:18 Dose: 100 mg Nifedipine (Procardia Xl) 60 mg PO DAILY [facility] Last Admin: 09/13/17 08:18 Dose: 60 mg Ondansetron HCl (Zofran Odt) 4 mg PO Q8H PRN PRN Reason: Nausea/Vomiting Polyethylene Glycol (Miralax) 17 gm PO DAILY [facility] Last Admin: 09/13/17 08:19 Dose: 17 gm Valproate Sodium (Depakene Oral Soln) 250 mg PO BID [facility] Last Admin: 09/13/17 08:16 Dose: 250 mg Warfarin Sodium (Coumadin) 5 mg PO QD5 [facility] PRN Reason: Protocol Stop: 09/13/17 17:01 Last Admin: 09/13/17 16:33 Dose: 5 mg - Labs Labs: 09/10/17 06:45 09/10/17 06:45 PT 21.7 Seconds (9.8-13.1) H 09/13/17 06:30 INR 1.9 (0.9-1.2) H 09/13/17 06:30 - Additional Findings Additional findings: Physical exam: Constitutional- cooperative, awake, alert Head- NCAT, PERRL Eye- PERRL, EOMI ENT- normal exam, MMM. Neck- normal inspection, supple, no JVD Respiratory- CTAB, no wheezes rales rhonchi Cardiovascular- RRR, +S1, +S2 no MRG GI/Abdominal- normal bowel sounds, soft, no mass, no hsm Skin- warm, dry Extremities Exam- Left foot shows mild erythema, no evidence of injury, no edema. normal capillary refill, normal inspection Neurological Exam- alert, awake, oriented Psych- normal mood, normal affect Assessment and Plan - Assessment and Plan (Free Text) Plan: 67 years old female with hx of HTN, CAD with stents, Multiple CVAs, admitted to the [facility] on 08/12/17 and discharged on 08/13/17 with right hand weakness and diagnosed with TIA. She was again admitted to the [facility] on 08/29/17 with Motor Aphasia, Right side weakness and diagnosed with acute CVA. 1. Acute CVA with right hemiplegia - Consult Dr Connor Business Director - OT/PT - Speech therapy - ASA - Lipitor - Coumadin 2. mild left foot pain - Likely to shifting weight to left foot due to right hemiplegia with a gait disturbance. No evidence of acute injury. - Motrin PRN for pain 3. HTN - Procardia XL - Cozaar -Clonidine - Follow Blood Pressure 4. DM II Insulin requiring - Levemir - Regular insulin sliding scale according to accucheck - HbA1c 8.0 on 08/29/17 5. CAD with stent - ASA - Lipitor 6. Stress Ulcer Prophylaxis with Pepcid 7. DVT prophylaxis: Patient on Coumadin 8. Code Status: Full
[2017-09-13] MEDS: Insulin Detemir 100 Units/ml Inj SC SCH (21:27)
[2017-09-14] MEDS: Insulin Regular 100 units/ml SC SCH ×4 (06:32→22:15)
[2017-09-14 07:45] LABS: INR 3.4 (0.9-1.2); PROTHROMBIN TIME 38.8 Seconds (9.8-13.1)
[2017-09-14] MEDS: POLYETHYLENE GLYCOL 3350 17 GM/Dose PACKET PO SCH (08:52)
[2017-09-14] MEDS: Valproic Acid 250 mg/5 ml UD Cup PO SCH ×2 (08:52→17:00)
[2017-09-14] MEDS: NIFEdipine 60 mg ER Tab PO SCH (08:53)
--- NOTE | 2017-09-14 13:21 | PSY.TMCNF ---
Nursing - Vital Signs Vital Signs (Last 8 hours): Vital Signs 09/14/17 09/14/17 09/14/17 07:59 08:52 08:53 Temperature 98.1 F Pulse Rate 66 66 66 Respiratory 18 Rate Blood Pressure 160/76 H 160/76 H 160/76 H O2 Sat by Pulse 96 Oximetry 09/14/17 09/14/17 09:00 10:00 Temperature 98.1 F Pulse Rate 66 Respiratory 18 Rate Blood Pressure 160/76 H 152/66 H O2 Sat by Pulse Oximetry Pain: 0 - Precautions: Precautions: Fall Prevention, Aspiration - Medications/Other Issues Comment: Needs Max encouragement to use left hand with ADL's. Refuses to use left hand to feed self or during grooming. RUE flaccid. - Consults Comment: Dr. Connor - Toileting Toileting: Dependent - Bladder Management Bladder Pattern: Incontinent Voiding Method: Diaper Bladder Management: Dependent Frequency of Accidents: >5 - Bowel Management Bowel Pattern: Incontinent Bowel Management: Dependent Frequency of Accidents: >5 - Transfers Transfers: Dependent - ADL's ADL's: Dependent - Pain Management Comments: Ibuprofen PRN for c/o left ankle pain - Patient/Family Teaching Comments: Care post CVA and safety precautions - Goals/Time Frame Comments: Per multidisciplinary care plan and goals - Provider Provider: Yaritza RAMIREZN RN CRRN Physical Therapy - Bed Mobility Bed Mobility: Verbal Cues, Moderate Assistance Comment: vc for sequencing and safety w/ all fxnl tasks. bed mob performed in hosp bed and mat table - Transfers Wheelchair to Mat: Verbal Cues, Moderate Assistance, Maximum Assistance Sit to Stand: Verbal Cues, Moderate Assistance, Maximum Assistance Comment: vc for sequencing and safety w/ all fxnl tasks - Ambulation Level of Assistance: Not Tested Distance (ft.): 0 Comment: Pt unable to perform gait training today secondary to L ankle pain (3 attempts in // bars, 2 attempts w/ NBQC). Most recent ambulatory status. 40 feet with mod A x 1 2 bouts. -RLE DF wrap, RUE giv-cecilia sling, WC follow for safety. -min A for trunk control, VCs and TCs for sequencing. -assistance to progress and some intermittent assistance to stabilize RLE during stance phase. -seated rest breaks between trials - Stair Negotiation Stairs: Level of Assistance: Not Tested Comment: Pt not safe to attempt steps at this time. - Standing Balance Static Stand: Moderate Assistance Dynamic Stand: Maximal Assistance Comment: supported - Pain Pain (assessed during therapy session): 8 Management Techniques: Ice, Position Change, Elevation, Relaxation Techniques, Exercise - Insight/Carryover Insight/Carryover: Fair - Patient/Family Education Comment: CVA recovery topics, safety, fxnl mob, DME, rehab goals, POC, edema mgmt, orthotic mgmt, deleterious effects of bed rest - Assessment/Plan Assessment: Pt is agreeable to participate in 1:1 and group recreation therapy sessions. Pt was oriented to modified emma card task and required mod verbal cues for number recognition and color recognition. At end of task, pt required min verbal cues and carried over task rules. Pt participated in group session of carmen and required mod verbal cues for number recognition and max visual cues of visual scanning to specific column. Pt tolerates duration of sessions and will continue to benefit from participating in recreation therapy sessions to improve deficits. - Goals Timeframe: 4 weeks Goals: 1 flight of steps with single rail with CG. CS to ambulate 200 feet with SPC. transfers CS with SPC. mod I with bed/mat mobility - Provider Therapist: nicolas License Number: [id number] Occupational Therapy - Arousal/Attention/Orientation Patient Orientation: Person, Place, Time, Appropriate to Age, Appropriate to Situation - ADL/IADL Self Feeding: Verbal Cues, Set-up Help Grooming: Verbal Cues, Set-up Help, Minimal Assistance Dressing-Upper Extremity: Verbal Cues, Set-up Help, Maximum Assistance Dressing-Lower Extremity: Verbal Cues, Set-up Help, Maximum Assistance, Dependent - Sitting Balance Static Sitting: Contact Guard Assist Dynamic Sitting: Minimal Assistance Comment: unsupported seated - Transfers Wheelchair to Bed Transfers: Verbal Cues, Set-up Help, Moderate Assistance, Maximum Assistance Toilet Transfers: Verbal Cues, Set-up Help, Moderate Assistance, Maximum Assistance - Upper Extremity Status Right Upper Extremity Comment: PROM is WNLS, but no AROM is evident at this time Left Upper Extremity Comment: P/AROM is WFLS - Pain Pain (assessed during therapy session): 8 Alleviating Techniques: Ice, Position Change, Elevation, Relaxation Techniques, Exercise - Insight/Carryover Insight/Carryover: Fair - Patient/Family Education Comment: CVA recovery topics, safety, fxnl mob, DME, rehab goals, POC, edema mgmt, orthotic mgmt, deleterious effects of bed rest - Assessment/Plan Assessment: Pt is agreeable to participate in 1:1 and group recreation therapy sessions. Pt was oriented to modified emma card task and required mod verbal cues for number recognition and color recognition. At end of task, pt required min verbal cues and carried over task rules. Pt participated in group session of bingo and required mod verbal cues for number recognition and max visual cues of visual scanning to specific column. Pt tolerates duration of sessions and will continue to benefit from participating in recreation therapy sessions to improve deficits. - Goals Timeframe: 4 weeks Goals: 1 flight of steps with single rail with CG. CS to ambulate 200 feet with SPC. transfers CS with SPC. mod I with bed/mat mobility - Provider Therapist: Josselin Pro Speech Therapy - Consult Information Patient on Program: Yes Medical Diagnosis: CVA Treatment Diagnosis: -mild-moderate receptive aphasia. -moderate expressive aphasia - Assessment Expressive Language Impairment: Moderate Receptive Language Impairment: Moderate Comment: mild-moderate - Plan Assessment: Pt is agreeable to participate in 1:1 and group recreation therapy sessions. Pt was oriented to modified emma card task and required mod verbal cues for number recognition and color recognition. At end of task, pt required min verbal cues and carried over task rules. Pt participated in group session of bingo and required mod verbal cues for number recognition and max visual cues of visual scanning to specific column. Pt tolerates duration of sessions and will continue to benefit from participating in recreation therapy sessions to improve deficits. - Provider Therapist: Vee Odell License Number: [id number] Recreational Therapy - Participation Participation: Participates in Individual and/or Group Sessions - Attendance Attendance: 3-5 times per week - Activities Leisure Activities: Cards and Games - Socialization Level of Socialization: Requires 1:1 guidance to respond, Minimal initiation of interaction to request basic needs - Diversional Time Diversional Time: likes cards, television - Assessment Assessment/Plan: Pt is agreeable to participate in 1:1 and group recreation therapy sessions. Pt was oriented to modified emma card task and required mod verbal cues for number recognition and color recognition. At end of task, pt required min verbal cues and carried over task rules. Pt participated in group session of bingo and required mod verbal cues for number recognition and max visual cues of visual scanning to specific column. Pt tolerates duration of sessions and will continue to benefit from participating in recreation therapy sessions to improve deficits. Problems Currently Limiting Participation: receptive and expressive aphasia, R UE weakness, decrease leisure awareness level Goals and Time Frame: Pt will be encouraged to participate in 1:1 and group recreation therapy sessions 3-5x week to improve number recognition, color recogniton, receptive command following, attention to task, and problem solving. - Provider Therapist: Nicky Mtz, [employer] #[id number] Nutrition - Current Diet Current Diet/ Supplement/ Feedings: Moderate consistent CHO advanced bite size thin liquids moderate consistent CHO glucerna shake 8 ounces 2 per day(440 kcal and 19.8 grams of protein) - Appetite Percent Meal Consumed: 75-100% - Comments Comments: Care post CVA and safety precautions - Assessment/Goals/Time Frame Assessment/Goals/Time Frame: Needs Max encouragement to use left hand with ADL' s. Refuses to use left hand to feed self or during grooming. RUE flaccid. - Provider Provider: Miriam Herrera RD Case Management - Discharge Plan Discharge Plan: Home with significant other/family Rehabilitation Plan - Discharge Plan Estimated Date of Discharge: 10/03/17 Discharge to: Subacute
--- NOTE | 2017-09-14 13:55 | CP.PCM.PN ---
Subjective - Date & Time of Evaluation Date of Evaluation: 09/14/17 Time of Evaluation: 13:54 - Subjective Subjective: Patient seen in the room, now with left ankle pain and swelling. she has known gout. not clear if an injection may be necessary. consult will be called in for podiatry continue current care, albeit limited given complaints Objective - Vital Signs/Intake and Output Vital Signs (last 24 hours): Temp Pulse Resp BP Pulse Ox 98.1 F 66 18 152/66 H 96 09/14/17 09:00 09/14/17 09:00 09/14/17 09:00 09/14/17 10:00 09/14/17 07:59 - Medications Medications: Current Medications Acetaminophen (Tylenol 325mg Tab) 650 mg PO Q4 PRN PRN Reason: Fever >100.4 F Acetaminophen (Tylenol 325mg Tab) 650 mg PO Q4 PRN PRN Reason: Pain scale 1-10. Last Admin: 09/12/17 23:46 Dose: 650 mg Albuterol/Ipratropium (Duoneb 3 Mg/0.5 Mg (3 Ml) Ud) 3 ml IH RQ6 PRN PRN Reason: Shortness of Breath Aspirin (Ecotrin) 81 mg PO DAILY [facility] Last Admin: 09/14/17 08:52 Dose: 81 mg Atorvastatin Calcium (Lipitor) 20 mg PO DIN [facility] Last Admin: 09/13/17 16:34 Dose: 20 mg Carvedilol (Coreg) 12.5 mg PO Q12 [facility] Last Admin: 09/14/17 08:53 Dose: 12.5 mg Clonidine HCl (Catapres) 0.2 mg PO Q12 [facility] Last Admin: 09/14/17 10:00 Dose: 0.2 mg Docusate Sodium (Colace Liquid) 100 mg PO TID [facility] Last Admin: 09/14/17 12:28 Dose: 100 mg Famotidine (Pepcid) 20 mg PO DAILY [facility] Last Admin: 09/14/17 08:52 Dose: 20 mg Furosemide (Lasix) 20 mg PO DAILY [facility] Last Admin: 09/14/17 08:53 Dose: 20 mg Ibuprofen (Motrin Tab) 400 mg PO Q4 PRN PRN Reason: foot pain 1-10 Indomethacin (Indocin) 25 mg PO TID PRN PRN Reason: leg pain Insulin Detemir (Levemir) 10 units SC [facility] Last Admin: 09/13/17 21:27 Dose: 10 units Insulin Human Regular (Humulin R) 0 units SC ACHS [facility] PRN Reason: Protocol Last Admin: 09/14/17 11:37 Dose: 6 units Losartan Potassium (Cozaar) 100 mg PO DAILY [facility] Last Admin: 09/14/17 08:52 Dose: 100 mg Nifedipine (Procardia Xl) 60 mg PO DAILY [facility] Last Admin: 09/14/17 08:53 Dose: 60 mg Ondansetron HCl (Zofran Odt) 4 mg PO Q8H PRN PRN Reason: Nausea/Vomiting Polyethylene Glycol (Miralax) 17 gm PO DAILY [facility] Last Admin: 09/14/17 08:52 Dose: 17 gm Valproate Sodium (Depakene Oral Soln) 250 mg PO BID [facility] Last Admin: 09/14/17 08:52 Dose: 250 mg - Labs Labs: 09/10/17 06:45 09/10/17 06:45 PT 38.8 Seconds (9.8-13.1) H D 09/14/17 07:22 INR 3.4 (0.9-1.2) H D 09/14/17 07:22
[2017-09-14] MEDS: Insulin Detemir 100 Units/ml Inj SC SCH (22:15)
[2017-09-15 06:49] LABS: INR 2.6 (0.9-1.2); PROTHROMBIN TIME 29.7 Seconds (9.8-13.1)
[2017-09-15] MEDS: Insulin Regular 100 units/ml SC SCH ×4 (06:54→22:15)
[2017-09-15] MEDS: Valproic Acid 250 mg/5 ml UD Cup PO SCH ×2 (08:10→17:18)
[2017-09-15] MEDS: POLYETHYLENE GLYCOL 3350 17 GM/Dose PACKET PO SCH (08:13)
[2017-09-15] MEDS: NIFEdipine 60 mg ER Tab PO SCH (08:14)
--- NOTE | 2017-09-15 10:51 | CP.PCM.PN ---
Subjective - Date & Time of Evaluation Date of Evaluation: 09/15/17 Time of Evaluation: 10:47 - Subjective Subjective: Consult note - Dr. King 67 year old female patient with PMHx of HTN; DM II, CAD with stents, CKD II, Multiples CVA, GERD and gout was seen and evaluated at bedside for left ankle pain. Patient was seen previously for right ankle pain few days ago. Patient was seen at bedside with with nurse yesterday. Nurse denies of any recent trauma or fall which can be associated for the new onset of left ankle pain. Denies of any other pedal complains at this time. PMHx of HTN; DM II, CAD with stents, CKD II, Multiples CVA, GERD and gout PSHx: cataract extraction 2014; Cardiac Cath; Benign fibroid tumor Removed 2000 ; benign breast Tumor removed 1978, Permanent Pacemaker SHx: never Smoked; No EtOH; No illegal substance use; live with family Allergies: Sulfa Antibiotics; Oxycodone; Bacitracin; Fentanyl Objective - Vital Signs/Intake and Output Vital Signs (last 24 hours): Temp Pulse Resp BP Pulse Ox 97.3 F L 62 18 166/80 H 100 09/15/17 08:00 09/15/17 08:13 09/15/17 08:00 09/15/17 08:14 09/15/17 08:00 - Medications Medications: Current Medications Acetaminophen (Tylenol 325mg Tab) 650 mg PO Q4 PRN PRN Reason: Fever >100.4 F Acetaminophen (Tylenol 325mg Tab) 650 mg PO Q4 PRN PRN Reason: Pain scale 1-10. Last Admin: 09/12/17 23:46 Dose: 650 mg Albuterol/Ipratropium (Duoneb 3 Mg/0.5 Mg (3 Ml) Ud) 3 ml IH RQ6 PRN PRN Reason: Shortness of Breath Aspirin (Ecotrin) 81 mg PO DAILY [facility] Last Admin: 09/15/17 08:10 Dose: 81 mg Atorvastatin Calcium (Lipitor) 20 mg PO DIN [facility] Last Admin: 09/14/17 17:00 Dose: 20 mg Carvedilol (Coreg) 12.5 mg PO Q12 [facility] Last Admin: 09/15/17 08:12 Dose: 12.5 mg Clonidine HCl (Catapres) 0.2 mg PO Q12 [facility] Last Admin: 09/15/17 08:11 Dose: 0.2 mg Docusate Sodium (Colace Liquid) 100 mg PO TID [facility] Last Admin: 09/15/17 08:13 Dose: 100 mg Famotidine (Pepcid) 20 mg PO DAILY [facility] Last Admin: 09/15/17 08:14 Dose: 20 mg Furosemide (Lasix) 20 mg PO DAILY [facility] Last Admin: 09/15/17 08:14 Dose: 20 mg Ibuprofen (Motrin Tab) 400 mg PO Q4 PRN PRN Reason: foot pain 1-10 Indomethacin (Indocin) 25 mg PO TID PRN PRN Reason: leg pain Last Admin: 09/15/17 08:10 Dose: 25 mg Insulin Detemir (Levemir) 10 units SC HS [facility] Last Admin: 09/14/17 22:15 Dose: 10 units Insulin Human Regular (Humulin R) 0 units SC ACHS [facility] PRN Reason: Protocol Last Admin: 09/15/17 06:54 Dose: 1 units Losartan Potassium (Cozaar) 100 mg PO DAILY [facility] Last Admin: 09/15/17 08:13 Dose: 100 mg Nifedipine (Procardia Xl) 60 mg PO DAILY [facility] Last Admin: 09/15/17 08:14 Dose: 60 mg Ondansetron HCl (Zofran Odt) 4 mg PO Q8H PRN PRN Reason: Nausea/Vomiting Polyethylene Glycol (Miralax) 17 gm PO DAILY [facility] Last Admin: 09/15/17 08:13 Dose: 17 gm Valproate Sodium (Depakene Oral Soln) 250 mg PO BID [facility] Last Admin: 09/15/17 08:10 Dose: 250 mg - Labs Labs: 09/10/17 06:45 09/10/17 06:45 PT 29.7 Seconds (9.8-13.1) H D 09/15/17 05:45 INR 2.6 (0.9-1.2) H D 09/15/17 05:45 - Constitutional Appears: Well, Non-toxic, No Acute Distress - Extremities Exam Additional comments: Bilateral LE focused exam: VASC: DP/PT pulses are palpable 2/4 B/L. Cap refill time: < 3 seconds to all digits. Skin temperature warm to cool from proximal to distal. mild non-pitting edema noted at ankle joint DERM: no onen lesions, no inter digital maceration, nails are cut to hygenic length, no clinical suspicion of active infection NEURO: Epicritic and protective sensation intact ORTHO: no pain on palpation along the course of the peroneal tendons, posterior tibial tendon, no pain on palpation along the course of the ATFL or CFL ligament , No pain during active or passive ROM of bilateral ankle - Neurological Exam Neurological Exam: Alert, Awake, Oriented x3 - Psychiatric Exam Psychiatric exam: Normal Affect, Normal Mood Assessment and Plan - Assessment and Plan (Free Text) Assessment: 67 year old female patient with PMHx of HTN; DM II, CAD with stents, CKD II, Multiples CVA, GERD and gout evaluated for possible gouty attack Plan: Patient seen and evaluated at bedside Discussed patient in details with attending Dr. King Labs, vitals and charts reviewed UA - 5.9 from 09/11 - unlikely a gouty attack Patient was previously seen by podiatry for right ankle pain. At the time patient was evaluated on LLE as well. Patient denied of any pain then. Told by nurse patient was started on indomethacin which relieved the symptoms. DIMPLE bandage applied to the left ankle Patient is stable from podiatry standpoint - re-consult if needed Thank you for the podiatry consult and allowing to take part in patient care
--- NOTE | 2017-09-15 11:30 | CP.PCM.PN ---
Subjective - Date & Time of Evaluation Date of Evaluation: 09/15/17 Time of Evaluation: 11:27 - Subjective Subjective: Ms. Robison was seen and examined at the bedside. She is alert, oriented. She denies any headache, blurred vision, dizziness, nausea, or vomiting. She is able to follow simple commands. She remains with right facial droop with right upper extremity flaccid. She is able to move her right lower extremity but remains weaker than the left side. She participates during all her therapy session. Objective - Vital Signs/Intake and Output Vital Signs (last 24 hours): Temp Pulse Resp BP Pulse Ox 97.3 F L 62 18 166/80 H 100 09/15/17 08:00 09/15/17 08:13 09/15/17 08:00 09/15/17 08:14 09/15/17 08:00 - Medications Medications: Current Medications Acetaminophen (Tylenol 325mg Tab) 650 mg PO Q4 PRN PRN Reason: Fever >100.4 F Acetaminophen (Tylenol 325mg Tab) 650 mg PO Q4 PRN PRN Reason: Pain scale 1-10. Last Admin: 09/12/17 23:46 Dose: 650 mg Albuterol/Ipratropium (Duoneb 3 Mg/0.5 Mg (3 Ml) Ud) 3 ml IH RQ6 PRN PRN Reason: Shortness of Breath Aspirin (Ecotrin) 81 mg PO DAILY [facility] Last Admin: 09/15/17 08:10 Dose: 81 mg Atorvastatin Calcium (Lipitor) 20 mg PO DIN [facility] Last Admin: 09/14/17 17:00 Dose: 20 mg Carvedilol (Coreg) 12.5 mg PO Q12 [facility] Last Admin: 09/15/17 08:12 Dose: 12.5 mg Clonidine HCl (Catapres) 0.2 mg PO Q12 [facility] Last Admin: 09/15/17 08:11 Dose: 0.2 mg Docusate Sodium (Colace Liquid) 100 mg PO TID [facility] Last Admin: 09/15/17 08:13 Dose: 100 mg Famotidine (Pepcid) 20 mg PO DAILY [facility] Last Admin: 09/15/17 08:14 Dose: 20 mg Furosemide (Lasix) 20 mg PO DAILY [facility] Last Admin: 09/15/17 08:14 Dose: 20 mg Ibuprofen (Motrin Tab) 400 mg PO Q4 PRN PRN Reason: foot pain 1-10 Indomethacin (Indocin) 25 mg PO TID PRN PRN Reason: leg pain Last Admin: 09/15/17 08:10 Dose: 25 mg Insulin Detemir (Levemir) 10 units SC [facility] Last Admin: 09/14/17 22:15 Dose: 10 units Insulin Human Regular (Humulin R) [address] [facility] PRN Reason: Protocol Last Admin: 09/15/17 06:54 Dose: 1 units Losartan Potassium (Cozaar) 100 mg PO DAILY [facility] Last Admin: 09/15/17 08:13 Dose: 100 mg Nifedipine (Procardia Xl) 60 mg PO DAILY [facility] Last Admin: 09/15/17 08:14 Dose: 60 mg Ondansetron HCl (Zofran Odt) 4 mg PO Q8H PRN PRN Reason: Nausea/Vomiting Polyethylene Glycol (Miralax) 17 gm PO DAILY [facility] Last Admin: 09/15/17 08:13 Dose: 17 gm Valproate Sodium (Depakene Oral Soln) 250 mg PO BID [facility] Last Admin: 09/15/17 08:10 Dose: 250 mg Warfarin Sodium (Coumadin) 3 mg PO QD5 [facility] PRN Reason: Protocol Stop: 09/15/17 17:01 - Labs Labs: 09/10/17 06:45 09/10/17 06:45 PT 29.7 Seconds (9.8-13.1) H D 09/15/17 05:45 INR 2.6 (0.9-1.2) H D 09/15/17 05:45 - Constitutional Appears: No Acute Distress - Head Exam Head Exam: NORMAL INSPECTION - Neurological Exam Neurological Exam: Alert, Awake, Oriented x3 Neuro motor strength exam: Left Upper Extremity: 5, Right Upper Extremity: 0, Left Lower Extremity: 5, Right Lower Extremity: 2/1 Additional comments: Neurological unchanged from previous examination. Assessment and Plan (1) Acute CVA (cerebrovascular accident) Assessment & Plan: Case discussed with Dr. Clark, continue all current medical, physical, and occupational therapies. Recommend blood pressure control and glycemic control. Status: Acute
[2017-09-15 13:13] LABS: HEMOGLOBIN 8.5 g/dL (12.0-16.0); MEAN CELL VOLUME 85.4 fl (81.0-99.0); MEAN CORPUSCULAR HGB CONC 31.6 g/dL (33.0-37.0); RBC 3.15 Mil/uL (3.80-5.20); RED CELL DISTRIBUTION WIDTH 17.2 % (11.5-14.5); WHITE BLOOD COUNT 5.8 K/uL (4.8-10.8)
--- NOTE | 2017-09-15 16:03 | CP.PCM.PN ---
Subjective - Date & Time of Evaluation Date of Evaluation: 09/15/17 Time of Evaluation: 13:00 - Subjective Subjective: Patient seen and examined States she is doing much better Foot and leg pain resolved with Indocin Denies any f/c/cp/sob/n/v/d. Tolerating Pt/OT well Objective - Vital Signs/Intake and Output Vital Signs (last 24 hours): Temp Pulse Resp BP Pulse Ox 97.3 F L 75 18 150/70 98 09/15/17 08:00 09/15/17 14:35 09/15/17 08:00 09/15/17 14:35 09/15/17 14:35 - Medications Medications: Current Medications Acetaminophen (Tylenol 325mg Tab) 650 mg PO Q4 PRN PRN Reason: Fever >100.4 F Acetaminophen (Tylenol 325mg Tab) 650 mg PO Q4 PRN PRN Reason: Pain scale 1-10. Last Admin: 09/12/17 23:46 Dose: 650 mg Albuterol/Ipratropium (Duoneb 3 Mg/0.5 Mg (3 Ml) Ud) 3 ml IH RQ6 PRN PRN Reason: Shortness of Breath Aspirin (Ecotrin) 81 mg PO DAILY [facility] Last Admin: 09/15/17 08:10 Dose: 81 mg Atorvastatin Calcium (Lipitor) 20 mg PO DIN [facility] Last Admin: 09/14/17 17:00 Dose: 20 mg Carvedilol (Coreg) 12.5 mg PO Q12 [facility] Last Admin: 09/15/17 08:12 Dose: 12.5 mg Clonidine HCl (Catapres) 0.2 mg PO Q12 [facility] Last Admin: 09/15/17 08:11 Dose: 0.2 mg Docusate Sodium (Colace Liquid) 100 mg PO TID [facility] Last Admin: 09/15/17 12:28 Dose: 100 mg Famotidine (Pepcid) 20 mg PO DAILY [facility] Last Admin: 09/15/17 08:14 Dose: 20 mg Furosemide (Lasix) 20 mg PO DAILY [facility] Last Admin: 09/15/17 08:14 Dose: 20 mg Ibuprofen (Motrin Tab) 400 mg PO Q4 PRN PRN Reason: foot pain 1-10 Indomethacin (Indocin) 25 mg PO TID PRN PRN Reason: leg pain Last Admin: 09/15/17 08:10 Dose: 25 mg Insulin Detemir (Levemir) 10 units SC HS [facility] Last Admin: 09/14/17 22:15 Dose: 10 units Insulin Human Regular (Humulin R) 0 units SC A[facility]S [facility] PRN Reason: Protocol Last Admin: 09/15/17 12:28 Dose: 1 units Losartan Potassium (Cozaar) 100 mg PO DAILY [facility] Last Admin: 09/15/17 08:13 Dose: 100 mg Nifedipine (Procardia Xl) 60 mg PO DAILY [facility] Last Admin: 09/15/17 08:14 Dose: 60 mg Ondansetron HCl (Zofran Odt) 4 mg PO Q8H PRN PRN Reason: Nausea/Vomiting Polyethylene Glycol (Miralax) 17 gm PO DAILY [facility] Last Admin: 09/15/17 08:13 Dose: 17 gm Valproate Sodium (Depakene Oral Soln) 250 mg PO BID [facility] Last Admin: 09/15/17 08:10 Dose: 250 mg Warfarin Sodium (Coumadin) 3 mg PO QD5 [facility] PRN Reason: Protocol Stop: 09/15/17 17:01 - Labs Labs: 09/15/17 13:09 09/10/17 06:45 PT 29.7 Seconds (9.8-13.1) H D 09/15/17 05:45 INR 2.6 (0.9-1.2) H D 09/15/17 05:45 - Additional Findings Additional findings: Physical exam: Constitutional- cooperative, awake, alert Head- NCAT, PERRL Eye- PERRL, EOMI ENT- normal exam, MMM. Neck- normal inspection, supple, no JVD Respiratory- CTAB, no wheezes rales rhonchi Cardiovascular- RRR, +S1, +S2 no MRG GI/Abdominal- normal bowel sounds, soft, no mass, no hsm Skin- warm, dry Extremities Exam- Left foot shows mild erythema, no evidence of injury, no edema. normal capillary refill, normal inspection Neurological Exam- alert, awake, oriented Psych- normal mood, normal affect Assessment and Plan - Assessment and Plan (Free Text) Plan: 67 years old female with hx of HTN, CAD with stents, Multiple CVAs, admitted to the [facility] on 08/12/17 and discharged on 08/13/17 with right hand weakness and diagnosed with TIA. She was again admitted to the [facility] on 08/29/17 with Motor Aphasia, Right side weakness and diagnosed with acute CVA. 1. Acute CVA with right hemiplegia - Consult Dr Connor Scaffolding Helper - OT/PT - Speech therapy - ASA - Lipitor - Coumadin 2. mild left foot pain - Likely to shifting weight to left foot due to right hemiplegia with a gait disturbance. No evidence of acute injury. - Motrin PRN for pain 3. HTN - Procardia XL - Cozaar -Clonidine - Follow Blood Pressure 4. DM II Insulin requiring - Levemir - Regular insulin sliding scale according to accucheck - HbA1c 8.0 on 08/29/17 5. CAD with stent - ASA - Lipitor 6. Stress Ulcer Prophylaxis with Pepcid 7. DVT prophylaxis: Patient on Coumadin 8. Code Status: Full
--- NOTE | 2017-09-15 16:34 | CP.PCM.PN ---
Subjective - Date & Time of Evaluation Date of Evaluation: 09/15/17 Time of Evaluation: 16:33 - Subjective Subjective: Patient seen in the room and in better spirits, pain is improved able to ambulate 20' today and yesterday couldn't really stand from the pain continue current care Objective - Vital Signs/Intake and Output Vital Signs (last 24 hours): Temp Pulse Resp BP Pulse Ox 97.3 F L 75 18 150/70 98 09/15/17 08:00 09/15/17 14:35 09/15/17 08:00 09/15/17 14:35 09/15/17 14:35 - Medications Medications: Current Medications Acetaminophen (Tylenol 325mg Tab) 650 mg PO Q4 PRN PRN Reason: Fever >100.4 F Acetaminophen (Tylenol 325mg Tab) 650 mg PO Q4 PRN PRN Reason: Pain scale 1-10. Last Admin: 09/12/17 23:46 Dose: 650 mg Albuterol/Ipratropium (Duoneb 3 Mg/0.5 Mg (3 Ml) Ud) 3 ml IH RQ6 PRN PRN Reason: Shortness of Breath Aspirin (Ecotrin) 81 mg PO DAILY [facility] Last Admin: 09/15/17 08:10 Dose: 81 mg Atorvastatin Calcium (Lipitor) 20 mg PO DIN [facility] Last Admin: 09/14/17 17:00 Dose: 20 mg Carvedilol (Coreg) 12.5 mg PO Q12 [facility] Last Admin: 09/15/17 08:12 Dose: 12.5 mg Clonidine HCl (Catapres) 0.2 mg PO Q12 [facility] Last Admin: 09/15/17 08:11 Dose: 0.2 mg Docusate Sodium (Colace Liquid) 100 mg PO TID [facility] Last Admin: 09/15/17 12:28 Dose: 100 mg Famotidine (Pepcid) 20 mg PO DAILY [facility] Last Admin: 09/15/17 08:14 Dose: 20 mg Furosemide (Lasix) 20 mg PO DAILY [facility] Last Admin: 09/15/17 08:14 Dose: 20 mg Ibuprofen (Motrin Tab) 400 mg PO Q4 PRN PRN Reason: foot pain 1-10 Indomethacin (Indocin) 25 mg PO TID PRN PRN Reason: leg pain Last Admin: 09/15/17 08:10 Dose: 25 mg Insulin Detemir (Levemir) 10 units SC HS [facility] Last Admin: 09/14/17 22:15 Dose: 10 units Insulin Human Regular (Humulin R) 0 units SC [facility] PRN Reason: Protocol Last Admin: 09/15/17 12:28 Dose: 1 units Losartan Potassium (Cozaar) 100 mg PO DAILY [facility] Last Admin: 09/15/17 08:13 Dose: 100 mg Nifedipine (Procardia Xl) 60 mg PO DAILY [facility] Last Admin: 09/15/17 08:14 Dose: 60 mg Ondansetron HCl (Zofran Odt) 4 mg PO Q8H PRN PRN Reason: Nausea/Vomiting Polyethylene Glycol (Miralax) 17 gm PO DAILY [facility] Last Admin: 09/15/17 08:13 Dose: 17 gm Valproate Sodium (Depakene Oral Soln) 250 mg PO BID [facility] Last Admin: 09/15/17 08:10 Dose: 250 mg Warfarin Sodium (Coumadin) 3 mg PO QD5 [facility] PRN Reason: Protocol Stop: 09/15/17 17:01 - Labs Labs: 09/15/17 13:09 09/10/17 06:45 PT 29.7 Seconds (9.8-13.1) H D 09/15/17 05:45 INR 2.6 (0.9-1.2) H D 09/15/17 05:45
[2017-09-15] MEDS: Insulin Detemir 100 Units/ml Inj SC SCH (21:58)
[2017-09-16] MEDS: Insulin Regular 100 units/ml SC SCH ×4 (07:03→21:03)
[2017-09-16 08:15] LABS: INR 1.7 (0.9-1.2)
[2017-09-16] MEDS: Valproic Acid 250 mg/5 ml UD Cup PO SCH ×2 (09:40→16:57)
[2017-09-16] MEDS: NIFEdipine 60 mg ER Tab PO SCH (09:42)
[2017-09-16] MEDS: POLYETHYLENE GLYCOL 3350 17 GM/Dose PACKET PO SCH ×2 (09:42→09:44)
--- NOTE | 2017-09-16 12:17 | CP.PCM.PN ---
Subjective - Date & Time of Evaluation Date of Evaluation: 09/16/17 Time of Evaluation: 12:11 - Subjective Subjective: Ms. Ricki Riojas was seen and examined during therapy session. She is alert, oriented with few clear speech but mild dysarthia. She denies any headache, dizziness, lightheadedness, nausea, or vomiting. She remains with right facial droop, right arm flaccid and right lower extremity weakness. She is able to walk with cane and assistance couple meters with steady gait. There was no untoward events overnight. Objective - Vital Signs/Intake and Output Vital Signs (last 24 hours): Temp Pulse Resp BP Pulse Ox 97.7 F 61 20 158/75 H 99 09/16/17 08:02 09/16/17 09:42 09/16/17 08:02 09/16/17 09:42 09/16/17 08:02 - Medications Medications: Current Medications Acetaminophen (Tylenol 325mg Tab) 650 mg PO Q4 PRN PRN Reason: Fever >100.4 F Acetaminophen (Tylenol 325mg Tab) 650 mg PO Q4 PRN PRN Reason: Pain scale 1-10. Last Admin: 09/12/17 23:46 Dose: 650 mg Albuterol/Ipratropium (Duoneb 3 Mg/0.5 Mg (3 Ml) Ud) 3 ml IH RQ6 PRN PRN Reason: Shortness of Breath Aspirin (Ecotrin) 81 mg PO DAILY [facility] Last Admin: 09/16/17 09:40 Dose: 81 mg Atorvastatin Calcium (Lipitor) 20 mg PO DIN [facility] Last Admin: 09/15/17 17:19 Dose: 20 mg Carvedilol (Coreg) 12.5 mg PO Q12 [facility] Last Admin: 09/16/17 09:39 Dose: 12.5 mg Clonidine HCl (Catapres) 0.2 mg PO Q12 [facility] Last Admin: 09/16/17 09:39 Dose: 0.2 mg Docusate Sodium (Colace Liquid) 100 mg PO TID [facility] Last Admin: 09/16/17 09:39 Dose: 100 mg Famotidine (Pepcid) 20 mg PO DAILY [facility] Last Admin: 09/16/17 09:42 Dose: 20 mg Furosemide (Lasix) 20 mg PO DAILY [facility] Last Admin: 09/16/17 09:41 Dose: 20 mg Ibuprofen (Motrin Tab) 400 mg PO Q4 PRN PRN Reason: foot pain 1-10 Indomethacin (Indocin) 25 mg PO TID PRN PRN Reason: leg pain Last Admin: 09/15/17 08:10 Dose: 25 mg Insulin Detemir (Levemir) 10 units SC HS [facility] Last Admin: 09/15/17 21:58 Dose: 10 units Insulin Human Regular (Humulin R) 0 units SC ACHS [facility] PRN Reason: Protocol Last Admin: 09/16/17 07:03 Dose: 2 units Losartan Potassium (Cozaar) 100 mg PO DAILY [facility] Last Admin: 09/16/17 09:41 Dose: 100 mg Nifedipine (Procardia Xl) 60 mg PO DAILY [facility] Last Admin: 09/16/17 09:42 Dose: 60 mg Ondansetron HCl (Zofran Odt) 4 mg PO Q8H PRN PRN Reason: Nausea/Vomiting Polyethylene Glycol (Miralax) 17 gm PO DAILY [facility] Last Admin: 09/16/17 09:44 Dose: Not Given Valproate Sodium (Depakene Oral Soln) 250 mg PO BID [facility] Last Admin: 09/16/17 09:40 Dose: 250 mg - Labs Labs: 09/15/17 13:09 09/10/17 06:45 PT 19.0 Seconds (9.8-13.1) H D 09/16/17 06:00 INR 1.7 (0.9-1.2) H D 09/16/17 06:00 - Constitutional Appears: No Acute Distress - Head Exam Head Exam: NORMAL INSPECTION - Neurological Exam Neurological Exam: Alert, Awake Neuro motor strength exam: Left Upper Extremity: 5, Right Upper Extremity: 0, Left Lower Extremity: 5, Right Lower Extremity: 2/1 Additional comments: Neurological improved from previous examination. She is able to walk with the assistance with cane. Assessment and Plan (1) Acute CVA (cerebrovascular accident) Assessment & Plan: Case discussed with Dr. Garcia, continue all medical, physical, occupational, and speech. Recommend blood pressure control and glycemic control. Status: Acute
--- NOTE | 2017-09-16 18:07 | CP.PCM.PN ---
Subjective - Date & Time of Evaluation Date of Evaluation: 09/16/17 Time of Evaluation: 18:06 - Subjective Subjective: Patient seen in the room much more conversant. very minimal pain and ambulated better as well hopefully this will be a turning point for her rehab continue current care Objective - Vital Signs/Intake and Output Vital Signs (last 24 hours): Temp Pulse Resp BP Pulse Ox 97.7 F 62 20 158/75 H 99 09/16/17 08:02 09/16/17 11:11 09/16/17 08:02 09/16/17 09:42 09/16/17 11:11 - Medications Medications: Current Medications Acetaminophen (Tylenol 325mg Tab) 650 mg PO Q4 PRN PRN Reason: Fever >100.4 F Acetaminophen (Tylenol 325mg Tab) 650 mg PO Q4 PRN PRN Reason: Pain scale 1-10. Last Admin: 09/12/17 23:46 Dose: 650 mg Albuterol/Ipratropium (Duoneb 3 Mg/0.5 Mg (3 Ml) Ud) 3 ml IH RQ6 PRN PRN Reason: Shortness of Breath Aspirin (Ecotrin) 81 mg PO DAILY [facility] Last Admin: 09/16/17 09:40 Dose: 81 mg Atorvastatin Calcium (Lipitor) 20 mg PO DIN [facility] Last Admin: 09/16/17 16:58 Dose: 20 mg Carvedilol (Coreg) 12.5 mg PO Q12 [facility] Last Admin: 09/16/17 09:39 Dose: 12.5 mg Clonidine HCl (Catapres) 0.2 mg PO Q12 [facility] Last Admin: 09/16/17 09:39 Dose: 0.2 mg Docusate Sodium (Colace Liquid) 100 mg PO TID [facility] Last Admin: 09/16/17 16:57 Dose: Not Given Famotidine (Pepcid) 20 mg PO DAILY [facility] Last Admin: 09/16/17 09:42 Dose: 20 mg Furosemide (Lasix) 20 mg PO DAILY [facility] Last Admin: 09/16/17 09:41 Dose: 20 mg Ibuprofen (Motrin Tab) 400 mg PO Q4 PRN PRN Reason: foot pain 1-10 Indomethacin (Indocin) 25 mg PO TID PRN PRN Reason: leg pain Last Admin: 09/15/17 08:10 Dose: 25 mg Insulin Detemir (Levemir) 10 units SC HS [facility] Last Admin: 09/15/17 21:58 Dose: 10 units Insulin Human Regular (Humulin R) 0 units SC ACHS [facility] PRN Reason: Protocol Last Admin: 09/16/17 16:57 Dose: 3 units Losartan Potassium (Cozaar) 100 mg PO DAILY [facility] Last Admin: 09/16/17 09:41 Dose: 100 mg Nifedipine (Procardia Xl) 60 mg PO DAILY [facility] Last Admin: 09/16/17 09:42 Dose: 60 mg Ondansetron HCl (Zofran Odt) 4 mg PO Q8H PRN PRN Reason: Nausea/Vomiting Polyethylene Glycol (Miralax) 17 gm PO DAILY [facility] Last Admin: 09/16/17 09:44 Dose: Not Given Valproate Sodium (Depakene Oral Soln) 250 mg PO BID [facility] Last Admin: 09/16/17 16:57 Dose: 250 mg - Labs Labs: 09/15/17 13:09 09/10/17 06:45 PT 19.0 Seconds (9.8-13.1) H D 09/16/17 06:00 INR 1.7 (0.9-1.2) H D 09/16/17 06:00
[2017-09-16] MEDS: Insulin Detemir 100 Units/ml Inj SC SCH (22:15)
[2017-09-17] MEDS: Insulin Regular 100 units/ml SC SCH ×4 (06:30→21:00)
[2017-09-17 07:16] LABS: INR 1.6 (0.9-1.2)
[2017-09-17] MEDS: POLYETHYLENE GLYCOL 3350 17 GM/Dose PACKET PO SCH (08:56)
[2017-09-17] MEDS: Valproic Acid 250 mg/5 ml UD Cup PO SCH ×2 (08:56→17:37)
[2017-09-17] MEDS: NIFEdipine 60 mg ER Tab PO SCH (08:57)
--- NOTE | 2017-09-17 11:30 | CP.PCM.PN ---
Subjective - Date & Time of Evaluation Date of Evaluation: 09/17/17 Time of Evaluation: 11:27 - Subjective Subjective: Ms. Robison was seen and examined at the bedside. She is alert, oriented in all spheres. She denies any headache, lightheadedness, nausea, or vomiting. She is able to follow simple commands. She remains with right facial droop, right arm flaccidity and right lower extremity weakness. She is actively participates during her therapy sessions. There was no untoward events overnight. Objective - Vital Signs/Intake and Output Vital Signs (last 24 hours): Temp Pulse Resp BP Pulse Ox 97.6 F 64 19 132/70 99 09/17/17 10:00 09/17/17 10:00 09/17/17 10:00 09/17/17 10:00 09/17/17 10:00 - Medications Medications: Current Medications Acetaminophen (Tylenol 325mg Tab) 650 mg PO Q4 PRN PRN Reason: Fever >100.4 F Acetaminophen (Tylenol 325mg Tab) 650 mg PO Q4 PRN PRN Reason: Pain scale 1-10. Last Admin: 09/12/17 23:46 Dose: 650 mg Albuterol/Ipratropium (Duoneb 3 Mg/0.5 Mg (3 Ml) Ud) 3 ml IH RQ6 PRN PRN Reason: Shortness of Breath Aspirin (Ecotrin) 81 mg PO DAILY [facility] Last Admin: 09/17/17 08:56 Dose: 81 mg Atorvastatin Calcium (Lipitor) 20 mg PO DIN [facility] Last Admin: 09/16/17 16:58 Dose: 20 mg Carvedilol (Coreg) 12.5 mg PO Q12 [facility] Last Admin: 09/17/17 08:57 Dose: 12.5 mg Clonidine HCl (Catapres) 0.2 mg PO Q12 [facility] Last Admin: 09/17/17 08:58 Dose: 0.2 mg Docusate Sodium (Colace Liquid) 100 mg PO TID [facility] Last Admin: 09/17/17 08:56 Dose: Not Given Famotidine (Pepcid) 20 mg PO DAILY [facility] Last Admin: 09/17/17 09:00 Dose: 20 mg Furosemide (Lasix) 20 mg PO DAILY [facility] Last Admin: 09/17/17 08:57 Dose: 20 mg Ibuprofen (Motrin Tab) 400 mg PO Q4 PRN PRN Reason: foot pain 1-10 Indomethacin (Indocin) 25 mg PO TID PRN PRN Reason: leg pain Last Admin: 09/15/17 08:10 Dose: 25 mg Insulin Detemir (Levemir) 10 units SC [facility] Last Admin: 09/16/17 22:15 Dose: 10 units Insulin Human Regular (Humulin R) 0 units SC [facility] PRN Reason: Protocol Last Admin: 09/17/17 06:30 Dose: Not Given Losartan Potassium (Cozaar) 100 mg PO DAILY [facility] Last Admin: 09/17/17 08:58 Dose: 100 mg Nifedipine (Procardia Xl) 60 mg PO DAILY [facility] Last Admin: 09/17/17 08:57 Dose: 60 mg Ondansetron HCl (Zofran Odt) 4 mg PO Q8H PRN PRN Reason: Nausea/Vomiting Polyethylene Glycol (Miralax) 17 gm PO DAILY [facility] Last Admin: 09/17/17 08:56 Dose: Not Given Valproate Sodium (Depakene Oral Soln) 250 mg PO BID [facility] Last Admin: 09/17/17 08:56 Dose: 250 mg - Labs Labs: 09/15/17 13:09 09/10/17 06:45 PT 18.0 Seconds (9.8-13.1) H 09/17/17 05:55 INR 1.6 (0.9-1.2) H 09/17/17 05:55 - Constitutional Appears: No Acute Distress - Head Exam Head Exam: NORMAL INSPECTION - Neurological Exam Neurological Exam: Alert, Awake Neuro motor strength exam: Left Upper Extremity: 5, Right Upper Extremity: 0, Left Lower Extremity: 5, Right Lower Extremity: 2/1 Additional comments: Neurological unchanged from previous examination. Assessment and Plan (1) Acute CVA (cerebrovascular accident) Assessment & Plan: Case discussed with Dr. Garcia, continue all current medical, physical, occupational, and speech therapies. Recommend blood pressure and glycemic control. Status: Acute
[2017-09-17] MEDS: Insulin Detemir 100 Units/ml Inj SC SCH (21:35)
[2017-09-18] MEDS: Insulin Regular 100 units/ml SC SCH ×4 (06:30→21:52)
[2017-09-18 09:09] LABS: HEMOGLOBIN 8.8 g/dL (12.0-16.0); MEAN CELL VOLUME 85.6 fl (81.0-99.0); MEAN CORPUSCULAR HEMOGLOBIN 27.3 pg (27.0-31.0); MEAN CORPUSCULAR HGB CONC 31.9 g/dL (33.0-37.0); RBC 3.21 Mil/uL (3.80-5.20); RED CELL DISTRIBUTION WIDTH 17.5 % (11.5-14.5)
[2017-09-18 09:13] LABS: INR 1.6 (0.9-1.2); PROTHROMBIN TIME 18.3 Seconds (9.8-13.1)
[2017-09-18] MEDS: NIFEdipine 60 mg ER Tab PO SCH (09:32)
[2017-09-18] MEDS: Valproic Acid 250 mg/5 ml UD Cup PO SCH ×2 (09:35→17:31)
[2017-09-18] MEDS: POLYETHYLENE GLYCOL 3350 17 GM/Dose PACKET PO SCH (09:36)
[2017-09-18] MEDS: Insulin Detemir 100 Units/ml Inj SC SCH (21:48)
[2017-09-19] MEDS: Insulin Regular 100 units/ml SC SCH ×4 (06:43→21:33)
[2017-09-19 07:21] LABS: INR 1.7 (0.9-1.2); PROTHROMBIN TIME 18.8 Seconds (9.8-13.1)
[2017-09-19] MEDS: NIFEdipine 60 mg ER Tab PO SCH (08:57)
[2017-09-19] MEDS: Valproic Acid 250 mg/5 ml UD Cup PO SCH ×2 (08:59→17:15)
[2017-09-19] MEDS: POLYETHYLENE GLYCOL 3350 17 GM/Dose PACKET PO SCH (09:00)
--- NOTE | 2017-09-19 14:30 | CP.PCM.PN ---
Subjective - Date & Time of Evaluation Date of Evaluation: 09/19/17 Time of Evaluation: 14:29 - Subjective Subjective: Patient seen in room family is present better verbal communication denies pain or fever continue current care Objective - Vital Signs/Intake and Output Vital Signs (last 24 hours): Temp Pulse Resp BP Pulse Ox 98.1 F 61 20 139/68 100 09/18/17 22:00 09/19/17 08:59 09/18/17 22:00 09/19/17 08:59 09/18/17 22:00 - Medications Medications: Current Medications Acetaminophen (Tylenol 325mg Tab) 650 mg PO Q4 PRN PRN Reason: Fever >100.4 F Acetaminophen (Tylenol 325mg Tab) 650 mg PO Q4 PRN PRN Reason: Pain scale 1-10. Last Admin: 09/12/17 23:46 Dose: 650 mg Albuterol/Ipratropium (Duoneb 3 Mg/0.5 Mg (3 Ml) Ud) 3 ml IH RQ6 PRN PRN Reason: Shortness of Breath Aspirin (Ecotrin) 81 mg PO DAILY [facility] Last Admin: 09/19/17 08:58 Dose: 81 mg Atorvastatin Calcium (Lipitor) 20 mg PO DIN [facility] Last Admin: 09/18/17 17:33 Dose: 20 mg Carvedilol (Coreg) 12.5 mg PO Q12 [facility] Last Admin: 09/19/17 08:58 Dose: 12.5 mg Clonidine HCl (Catapres) 0.2 mg PO Q12 [facility] Last Admin: 09/19/17 08:58 Dose: 0.2 mg Docusate Sodium (Colace Liquid) 100 mg PO TID [facility] Last Admin: 09/19/17 12:22 Dose: 100 mg Famotidine (Pepcid) 20 mg PO DAILY [facility] Last Admin: 09/19/17 08:57 Dose: 20 mg Furosemide (Lasix) 20 mg PO DAILY [facility] Last Admin: 09/19/17 08:58 Dose: 20 mg Ibuprofen (Motrin Tab) 400 mg PO Q4 PRN PRN Reason: foot pain 1-10 Indomethacin (Indocin) 25 mg PO TID PRN PRN Reason: leg pain Last Admin: 09/15/17 08:10 Dose: 25 mg Insulin Detemir (Levemir) 10 units SC [facility] Last Admin: 09/18/17 21:48 Dose: 10 units Insulin Human Regular (Humulin R) 0 units SC ACHS [facility] PRN Reason: Protocol Last Admin: 09/19/17 12:21 Dose: 1 units Losartan Potassium (Cozaar) 100 mg PO DAILY [facility] Last Admin: 09/19/17 08:59 Dose: 100 mg Nifedipine (Procardia Xl) 60 mg PO DAILY [facility] Last Admin: 09/19/17 08:57 Dose: 60 mg Ondansetron HCl (Zofran Odt) 4 mg PO Q8H PRN PRN Reason: Nausea/Vomiting Polyethylene Glycol (Miralax) 17 gm PO DAILY [facility] Last Admin: 09/19/17 09:00 Dose: Not Given Valproate Sodium (Depakene Oral Soln) 250 mg PO BID [facility] Last Admin: 09/19/17 08:59 Dose: 250 mg Warfarin Sodium (Coumadin) 5 mg PO ONCE ONE PRN Reason: Protocol Stop: 09/19/17 17:01 - Labs Labs: 09/18/17 08:30 09/10/17 06:45 PT 18.8 Seconds (9.8-13.1) H 09/19/17 05:20 INR 1.7 (0.9-1.2) H 09/19/17 05:20
[2017-09-19] MEDS: Insulin Detemir 100 Units/ml Inj SC SCH (21:34)
[2017-09-20] MEDS: Insulin Regular 100 units/ml SC SCH ×4 (06:51→21:00)
[2017-09-20] MEDS: POLYETHYLENE GLYCOL 3350 17 GM/Dose PACKET PO SCH ×2 (08:37→09:00)
[2017-09-20] MEDS: Valproic Acid 250 mg/5 ml UD Cup PO SCH ×2 (08:37→20:53)
[2017-09-20] MEDS: NIFEdipine 60 mg ER Tab PO SCH (08:37)
[2017-09-20 09:50] LABS: PROTHROMBIN TIME 22.8 Seconds (9.8-13.1)
--- NOTE | 2017-09-20 10:51 | CP.PCM.PN ---
Subjective - Date & Time of Evaluation Date of Evaluation: 09/20/17 Time of Evaluation: 10:48 - Subjective Subjective: Ms. Ricki Riojas was seen and examined at the bedside. She is alert, oriented, able to answer all questions appropriately. Her right facial droop is improving with much clearer speech. She is able to move her right arm from side to side not against gravity. She is able to move her right lower extremity spontaneously with no swelling noted. There was no untoward events overnight. Objective - Vital Signs/Intake and Output Vital Signs (last 24 hours): Temp Pulse Resp BP Pulse Ox 97.9 F 78 20 144/90 99 09/19/17 08:00 09/20/17 10:00 09/20/17 10:00 09/20/17 10:00 09/19/17 08:00 - Medications Medications: Current Medications Acetaminophen (Tylenol 325mg Tab) 650 mg PO Q4 PRN PRN Reason: Fever >100.4 F Acetaminophen (Tylenol 325mg Tab) 650 mg PO Q4 PRN PRN Reason: Pain scale 1-10. Last Admin: 09/12/17 23:46 Dose: 650 mg Albuterol/Ipratropium (Duoneb 3 Mg/0.5 Mg (3 Ml) Ud) 3 ml IH RQ6 PRN PRN Reason: Shortness of Breath Aspirin (Ecotrin) 81 mg PO DAILY [facility] Last Admin: 09/20/17 08:40 Dose: 81 mg Atorvastatin Calcium (Lipitor) 20 mg PO DIN [facility] Last Admin: 09/19/17 17:16 Dose: 20 mg Carvedilol (Coreg) 12.5 mg PO Q12 [facility] Last Admin: 09/20/17 08:40 Dose: 12.5 mg Clonidine HCl (Catapres) 0.2 mg PO Q12 [facility] Last Admin: 09/20/17 08:39 Dose: 0.2 mg Docusate Sodium (Colace Liquid) 100 mg PO TID [facility] Last Admin: 09/20/17 08:38 Dose: 100 mg Famotidine (Pepcid) 20 mg PO DAILY [facility] Last Admin: 09/20/17 08:38 Dose: 20 mg Furosemide (Lasix) 20 mg PO DAILY [facility] Last Admin: 09/20/17 08:38 Dose: 20 mg Ibuprofen (Motrin Tab) 400 mg PO Q4 PRN PRN Reason: foot pain 1-10 Indomethacin (Indocin) 25 mg PO TID PRN PRN Reason: leg pain Last Admin: 09/20/17 08:39 Dose: 25 mg Insulin Detemir (Levemir) 10 units SC HS [facility] Last Admin: 09/19/17 21:34 Dose: 10 units Insulin Human Regular (Humulin R) 0 units SC ACHS [facility] PRN Reason: Protocol Last Admin: 09/20/17 06:51 Dose: 1 units Losartan Potassium (Cozaar) 100 mg PO DAILY [facility] Last Admin: 09/20/17 08:38 Dose: 100 mg Nifedipine (Procardia Xl) 60 mg PO DAILY [facility] Last Admin: 09/20/17 08:37 Dose: 60 mg Ondansetron HCl (Zofran Odt) 4 mg PO Q8H PRN PRN Reason: Nausea/Vomiting Polyethylene Glycol (Miralax) 17 gm PO DAILY [facility] Last Admin: 09/20/17 08:37 Dose: 17 gm Valproate Sodium (Depakene Oral Soln) 250 mg PO BID [facility] Last Admin: 09/20/17 08:37 Dose: 250 mg Warfarin Sodium (Coumadin) 5 mg PO QD5 [facility] PRN Reason: Protocol Stop: 09/20/17 17:01 - Labs Labs: 09/18/17 08:30 09/10/17 06:45 PT 22.8 Seconds (9.8-13.1) H 09/20/17 09:04 INR 2.0 (0.9-1.2) H 09/20/17 09:04 - Constitutional Appears: No Acute Distress - Head Exam Head Exam: NORMAL INSPECTION - Neurological Exam Neurological Exam: Alert, Awake, Oriented x3 Neuro motor strength exam: Left Upper Extremity: 5, Right Upper Extremity: 2/1, Left Lower Extremity: 5, Right Lower Extremity: 3 Additional comments: Neurological improved from previous examination, right arm able to move from side to side. Assessment and Plan (1) Acute CVA (cerebrovascular accident) Assessment & Plan: Case discussed with Dr. Zhao, continue all current medical, physical, occupational, and speech therapies. Recommend blood pressure and glycemic control. Status: Acute
--- NOTE | 2017-09-20 12:00 | CP.PCM.PN ---
Subjective - Date & Time of Evaluation Date of Evaluation: 09/20/17 Time of Evaluation: 10:00 - Subjective Subjective: Patient was seen and examined during OT. She has no complaints today. Continuing to state she feels well. Denies any f/c/cp/sob/n/v/d. tolerating PT/OT well. Objective - Vital Signs/Intake and Output Vital Signs (last 24 hours): Temp Pulse Resp BP Pulse Ox 97.9 F 78 20 144/90 99 09/19/17 08:00 09/20/17 10:00 09/20/17 10:00 09/20/17 10:00 09/19/17 08:00 - Medications Medications: Current Medications Acetaminophen (Tylenol 325mg Tab) 650 mg PO Q4 PRN PRN Reason: Fever >100.4 F Acetaminophen (Tylenol 325mg Tab) 650 mg PO Q4 PRN PRN Reason: Pain scale 1-10. Last Admin: 09/12/17 23:46 Dose: 650 mg Albuterol/Ipratropium (Duoneb 3 Mg/0.5 Mg (3 Ml) Ud) 3 ml IH RQ6 PRN PRN Reason: Shortness of Breath Aspirin (Ecotrin) 81 mg PO DAILY [facility] Last Admin: 09/20/17 08:40 Dose: 81 mg Atorvastatin Calcium (Lipitor) 20 mg PO DIN [facility] Last Admin: 09/19/17 17:16 Dose: 20 mg Carvedilol (Coreg) 12.5 mg PO Q12 [facility] Last Admin: 09/20/17 08:40 Dose: 12.5 mg Clonidine HCl (Catapres) 0.2 mg PO Q12 [facility] Last Admin: 09/20/17 08:39 Dose: 0.2 mg Docusate Sodium (Colace Liquid) 100 mg PO TID [facility] Last Admin: 09/20/17 08:38 Dose: 100 mg Famotidine (Pepcid) 20 mg PO DAILY [facility] Last Admin: 09/20/17 08:38 Dose: 20 mg Furosemide (Lasix) 20 mg PO DAILY [facility] Last Admin: 09/20/17 08:38 Dose: 20 mg Ibuprofen (Motrin Tab) 400 mg PO Q4 PRN PRN Reason: foot pain 1-10 Indomethacin (Indocin) 25 mg PO TID PRN PRN Reason: leg pain Last Admin: 09/20/17 08:39 Dose: 25 mg Insulin Detemir (Levemir) 10 units SC HS [facility] Last Admin: 09/19/17 21:34 Dose: 10 units Insulin Human Regular (Humulin R) 0 units SC ACHS [facility] PRN Reason: Protocol Last Admin: 09/20/17 06:51 Dose: 1 units Losartan Potassium (Cozaar) 100 mg PO DAILY [facility] Last Admin: 09/20/17 08:38 Dose: 100 mg Nifedipine (Procardia Xl) 60 mg PO DAILY [facility] Last Admin: 09/20/17 08:37 Dose: 60 mg Ondansetron HCl (Zofran Odt) 4 mg PO Q8H PRN PRN Reason: Nausea/Vomiting Polyethylene Glycol (Miralax) 17 gm PO DAILY [facility] Last Admin: 09/20/17 08:37 Dose: 17 gm Valproate Sodium (Depakene Oral Soln) 250 mg PO BID [facility] Last Admin: 09/20/17 08:37 Dose: 250 mg Warfarin Sodium (Coumadin) 5 mg PO QD5 [facility] PRN Reason: Protocol Stop: 09/20/17 17:01 - Labs Labs: 09/18/17 08:30 09/10/17 06:45 PT 22.8 Seconds (9.8-13.1) H 09/20/17 09:04 INR 2.0 (0.9-1.2) H 09/20/17 09:04 - Additional Findings Additional findings: Physical exam: Constitutional- cooperative, awake, alert Head- NCAT, PERRL Eye- PERRL, EOMI ENT- normal exam, MMM. Neck- normal inspection, supple, no JVD Respiratory- CTAB, no wheezes rales rhonchi Cardiovascular- RRR, +S1, +S2 no MRG GI/Abdominal- normal bowel sounds, soft, no mass, no hsm Skin- warm, dry Extremities Exam- Left foot shows mild erythema, no evidence of injury, no edema. normal capillary refill, normal inspection Neurological Exam- alert, awake, oriented Psych- normal mood, normal affect Assessment and Plan - Assessment and Plan (Free Text) Plan: 67 years old female with hx of HTN, CAD with stents, Multiple CVAs, admitted to the [facility] on 08/12/17 and discharged on 08/13/17 with right hand weakness and diagnosed with TIA. She was again admitted to the [facility] on 08/29/17 with Motor Aphasia, Right side weakness and diagnosed with acute CVA. 1. Acute CVA with right hemiplegia - Consult Dr oCnnor [employer] - OT/PT - Speech therapy - ASA - Lipitor - Coumadin 2. Gout with left foot pain - Likely to shifting weight to left foot due to right hemiplegia with a gait disturbance. No evidence of acute injury. - Indocin PRN for pain- works well for her 3. HTN - Procardia XL - Cozaar -Clonidine - Follow Blood Pressure 4. DM II Insulin requiring - Levemir - Regular insulin sliding scale according to accucheck - HbA1c 8.0 on 08/29/17 5. CAD with stent - ASA - Lipitor 6. Stress Ulcer Prophylaxis with Pepcid 7. DVT prophylaxis: Patient on Coumadin 8. Code Status: Full
--- NOTE | 2017-09-20 15:02 | CP.PCM.PN ---
Subjective - Date & Time of Evaluation Date of Evaluation: 09/20/17 Time of Evaluation: 15:01 - Subjective Subjective: Patient seen in PT having a good day ambulating with CGA able to do ankle AROM well denies pain continue current care excellent acute rehab patient Objective - Vital Signs/Intake and Output Vital Signs (last 24 hours): Temp Pulse Resp BP Pulse Ox 97.9 F 78 20 144/90 99 09/19/17 08:00 09/20/17 10:00 09/20/17 10:00 09/20/17 10:00 09/19/17 08:00 - Medications Medications: Current Medications Acetaminophen (Tylenol 325mg Tab) 650 mg PO Q4 PRN PRN Reason: Fever >100.4 F Acetaminophen (Tylenol 325mg Tab) 650 mg PO Q4 PRN PRN Reason: Pain scale 1-10. Last Admin: 09/12/17 23:46 Dose: 650 mg Albuterol/Ipratropium (Duoneb 3 Mg/0.5 Mg (3 Ml) Ud) 3 ml IH RQ6 PRN PRN Reason: Shortness of Breath Aspirin (Ecotrin) 81 mg PO DAILY [facility] Last Admin: 09/20/17 08:40 Dose: 81 mg Atorvastatin Calcium (Lipitor) 20 mg PO DIN [facility] Last Admin: 09/19/17 17:16 Dose: 20 mg Carvedilol (Coreg) 12.5 mg PO Q12 [facility] Last Admin: 09/20/17 08:40 Dose: 12.5 mg Clonidine HCl (Catapres) 0.2 mg PO Q12 [facility] Last Admin: 09/20/17 08:39 Dose: 0.2 mg Docusate Sodium (Colace Liquid) 100 mg PO TID [facility] Last Admin: 09/20/17 12:22 Dose: 100 mg Famotidine (Pepcid) 20 mg PO DAILY [facility] Last Admin: 09/20/17 08:38 Dose: 20 mg Furosemide (Lasix) 20 mg PO DAILY [facility] Last Admin: 09/20/17 08:38 Dose: 20 mg Ibuprofen (Motrin Tab) 400 mg PO Q4 PRN PRN Reason: foot pain 1-10 Indomethacin (Indocin) 25 mg PO TID PRN PRN Reason: leg pain Last Admin: 09/20/17 08:39 Dose: 25 mg Insulin Detemir (Levemir) 10 units SC [facility] Last Admin: 09/19/17 21:34 Dose: 10 units Insulin Human Regular (Humulin R) 0 units SC ACHS [facility] PRN Reason: Protocol Last Admin: 09/20/17 12:21 Dose: 2 units Losartan Potassium (Cozaar) 100 mg PO DAILY [facility] Last Admin: 09/20/17 08:38 Dose: 100 mg Nifedipine (Procardia Xl) 60 mg PO DAILY [facility] Last Admin: 09/20/17 08:37 Dose: 60 mg Ondansetron HCl (Zofran Odt) 4 mg PO Q8H PRN PRN Reason: Nausea/Vomiting Polyethylene Glycol (Miralax) 17 gm PO DAILY [facility] Last Admin: 09/20/17 08:37 Dose: 17 gm Valproate Sodium (Depakene Oral Soln) 250 mg PO BID [facility] Last Admin: 09/20/17 08:37 Dose: 250 mg Warfarin Sodium (Coumadin) 5 mg PO QD5 [facility] PRN Reason: Protocol Stop: 09/20/17 17:01 - Labs Labs: 09/18/17 08:30 09/10/17 06:45 PT 22.8 Seconds (9.8-13.1) H 09/20/17 09:04 INR 2.0 (0.9-1.2) H 09/20/17 09:04
[2017-09-20] MEDS: Insulin Detemir 100 Units/ml Inj SC SCH (21:40)
[2017-09-21 06:16] LABS: HEMOGLOBIN 8.6 g/dL (12.0-16.0); MEAN CELL VOLUME 85.7 fl (81.0-99.0); MEAN CORPUSCULAR HEMOGLOBIN 26.8 pg (27.0-31.0); MEAN CORPUSCULAR HGB CONC 31.3 g/dL (33.0-37.0); RBC 3.19 Mil/uL (3.80-5.20); RED CELL DISTRIBUTION WIDTH 17.5 % (11.5-14.5); WHITE BLOOD COUNT 4.4 K/uL (4.8-10.8)
[2017-09-21 06:22] LABS: PROTHROMBIN TIME 31.1 Seconds (9.8-13.1)
[2017-09-21 06:23] LABS: INR 2.7 (0.9-1.2)
[2017-09-21] MEDS: Insulin Regular 100 units/ml SC SCH ×4 (07:02→21:00)
[2017-09-21] MEDS: NIFEdipine 60 mg ER Tab PO SCH (08:13)
[2017-09-21] MEDS: Valproic Acid 250 mg/5 ml UD Cup PO SCH ×2 (08:14→20:18)
[2017-09-21] MEDS: POLYETHYLENE GLYCOL 3350 17 GM/Dose PACKET PO SCH (08:21)
--- NOTE | 2017-09-21 13:23 | PSY.TMCNF ---
Nursing - Vital Signs Vital Signs (Last 8 hours): Vital Signs 09/21/17 09/21/17 09/21/17 07:55 08:11 08:12 Temperature 97.3 F L Pulse Rate 63 63 Respiratory 18 Rate Blood Pressure 151/70 H 151/70 H 151/70 H O2 Sat by Pulse 100 Oximetry 09/21/17 09/21/17 08:13 09:00 Temperature 97.3 F L Pulse Rate 63 Respiratory 18 Rate Blood Pressure 151/70 H 151/70 H O2 Sat by Pulse Oximetry Pain: 0 - Precautions: Precautions: Fall Prevention, Aspiration - Medications/Other Issues Comment: Improved affet and participation with ADL's. - Consults Comment: Dr. King, Dr. Connor, Dr. Zhao - Toileting Toileting: Dependent - Bladder Management Bladder Pattern: Normal Voiding Method: Toilet, Bedpan Bladder Management: Dependent Frequency of Accidents: >5 - Bowel Management Bowel Pattern: Incontinent Bowel Management: Dependent Frequency of Accidents: >5 - Transfers Transfers: Dependent - ADL's ADL's: Dependent - Pain Management Comments: Ibuprofen or Indocin PRN for c/o left ankle pain with relief - Patient/Family Teaching Comments: Care post CVA and safety precautions - Goals/Time Frame Comments: PER MULTIDISCIPLINARY CARE PLAN GOALS - Provider Provider: ALANNA RAMIREZN RN CRRN Physical Therapy - Bed Mobility Bed Mobility: Verbal Cues, Minimal Assistance - Transfers Wheelchair to Mat: Verbal Cues, Minimal Assistance, Moderate Assistance Sit to Stand: Verbal Cues, Minimal Assistance - Ambulation Level of Assistance: Verbal Cues, Minimal Assistance Distance (ft.): 70 Assistive Devices: Narrow base quad cane - Stair Negotiation Stairs: Level of Assistance: Verbal Cues, Minimal Assistance Number of Stairs: 3 Stairs: Assistive Devices: Left Handrail - Standing Balance Static Stand: Minimal Assistance - Pain Pain (assessed during therapy session): 0 - Insight/Carryover Insight/Carryover: Fair - Patient/Family Education Comment: Pt education provided for increased safety awareness and proper techniques during functional mobility training. - Assessment/Plan Assessment: Pt is progressing in funcitonal mobility skills; currently requires min A for bed mobility, min A for transfers, min A for ambulating with NBQC. Pt no longer complains of pain in BLEs, resulting in increased participation in PT interventions. Pt will cont. to benefit from skilled PT to address deficits, reduce fall risk, and maximize functional independence. - Goals Timeframe: 2 weeks Goals: SIt < > supine with S. SIt < > stand with SUpervision. Pt will ambulate 200 ft with NBQC and CGA. Pt will ascend/descend flight of stairs with min A - Provider License Number: [id number] Occupational Therapy - Arousal/Attention/Orientation Patient Orientation: Person, Place - ADL/IADL Self Feeding: Supervision, Verbal Cues, Set-up Help Grooming: Verbal Cues, Set-up Help, Minimal Assistance Bathing-Upper Extremity: Verbal Cues, Set-up Help, Moderate Assistance Bathing-Lower Extremity: Verbal Cues, Set-up Help, Maximum Assistance Dressing-Upper Extremity: Verbal Cues, Set-up Help, Moderate Assistance Dressing-Lower Extremity: Verbal Cues, Set-up Help, Maximum Assistance Comment: Bathing: TBA when safe. Pt has difficulty weightbearing onto BLEs due to B ankle pain and edema. - Sitting Balance Static Sitting: Supervision Dynamic Sitting: Minimal Assistance Comment: unsupported seated - Transfers Wheelchair to Bed Transfers: Verbal Cues, Set-up Help, Minimal Assistance Toilet Transfers: Verbal Cues, Set-up Help, Minimal Assistance Comment: shower transfers: Mod assist and verbal cues - Wheelchair Management Level of Assistance: Dependent - Upper Extremity Status Right Upper Extremity Comment: PROM is WNLS, but Minimal/beginning active movement noted in R shoulder/elbow--gravity eliminated plane- Left Upper Extremity Comment: P/AROM is WFLS - Pain Pain (assessed during therapy session): 0 - Insight/Carryover Insight/Carryover: Fair - Patient/Family Education Comment: Pt education provided for increased safety awareness and proper techniques during functional mobility training. - Assessment/Plan Assessment: Pt is progressing in funcitonal mobility skills; currently requires min A for bed mobility, min A for transfers, min A for ambulating with NBQC. Pt no longer complains of pain in BLEs, resulting in increased participation in PT interventions. Pt will cont. to benefit from skilled PT to address deficits, reduce fall risk, and maximize functional independence. - Goals Timeframe: 2 weeks Goals: SIt < > supine with S. SIt < > stand with SUpervision. Pt will ambulate 200 ft with NBQC and CGA. Pt will ascend/descend flight of stairs with min A - Provider Therapist: Karly Fitzpatrick, OTR/L Speech Therapy - Consult Information Patient on Program: Yes Medical Diagnosis: CVA Treatment Diagnosis: -mild-moderate receptive aphasia. -moderate expressive aphasia - Assessment Expressive Language Impairment: Moderate Receptive Language Impairment: Moderate - Plan Assessment: Pt is progressing in funcitonal mobility skills; currently requires min A for bed mobility, min A for transfers, min A for ambulating with NBQC. Pt no longer complains of pain in BLEs, resulting in increased participation in PT interventions. Pt will cont. to benefit from skilled PT to address deficits, reduce fall risk, and maximize functional independence. Plan: Continue Speech/Language Therapy - Provider Therapist: Vee Odell License Number: [id number] Recreational Therapy - Participation Participation: Participates in Individual and/or Group Sessions - Attendance Attendance: 3-5 times per week - Activities Leisure Activities: Cards and Games - Socialization Level of Socialization: Initiates/interacts freely with care givers and peer, Requires 1:1 guidance to respond - Diversional Time Diversional Time: likes cards, television - Assessment Assessment/Plan: Pt is progressing in funcitonal mobility skills; currently requires min A for bed mobility, min A for transfers, min A for ambulating with NBQC. Pt no longer complains of pain in BLEs, resulting in increased participation in PT interventions. Pt will cont. to benefit from skilled PT to address deficits, reduce fall risk, and maximize functional independence. - Provider Therapist: Nicky Mtz, [employer] #[id number] Nutrition - Current Diet Current Diet/ Supplement/ Feedings: Advanced bite size thin liquids Moderate consistent CHO glucerna shake. 8 ounces 2 per day(440 kcal and 19.8 grams of protein) - Appetite Percent Meal Consumed: 75-100% - Comments Comments: Care post CVA and safety precautions - Assessment/Goals/Time Frame Assessment/Goals/Time Frame: Improved affet and participation with ADL's. - Provider Provider: Miriam Herrera RD Case Management - Psychosocial Assessment Support Systems: Matheus Riojas (spouse)- [phone] Psychological Interventions/Needs: Patient alert with mild-moderate receptive and moderate expressive aphasia Discharge Concerns: Patient currently requiring max-total A overall for functional mobility. Patient/Family Meeting: CM met with patient and rehab team Intervention/Goal/Outcome:: 1. Plan: Home with 24 hour supervision/assist vs [facility] dependant on progress. 2. Tentative discharge date: 10/03/2017. 4. continued stay auth, LAD: 09/17. 5. caregiver training. - Discharge Plan Discharge Plan: Subacute care - Provider Provider: STEPHON Sorensen LSW License Number: [id number] Rehabilitation Plan - Treatment Plan Treatment Plan: Physical Therapy, Occupational Therapy, Speech, Dietary, Patient /Family Education - Discharge Plan Estimated Date of Discharge: 10/03/17 Discharge to: Subacute
--- NOTE | 2017-09-21 14:00 | CP.PCM.PN ---
Subjective - Date & Time of Evaluation Date of Evaluation: 09/21/17 Time of Evaluation: 13:59 - Subjective Subjective: Patient seen in the room discussed importance of managing frustration. she understood she is an ideal acute rehab candidate having OT/PT and speech and making gains she is very motivated and working well with the staff no pain now. Objective - Vital Signs/Intake and Output Vital Signs (last 24 hours): Temp Pulse Resp BP Pulse Ox 97.3 F L 63 18 151/70 H 100 09/21/17 09:00 09/21/17 09:00 09/21/17 09:00 09/21/17 09:00 09/21/17 07:55 - Medications Medications: Current Medications Acetaminophen (Tylenol 325mg Tab) 650 mg PO Q4 PRN PRN Reason: Fever >100.4 F Acetaminophen (Tylenol 325mg Tab) 650 mg PO Q4 PRN PRN Reason: Pain scale 1-10. Last Admin: 09/12/17 23:46 Dose: 650 mg Albuterol/Ipratropium (Duoneb 3 Mg/0.5 Mg (3 Ml) Ud) 3 ml IH RQ6 PRN PRN Reason: Shortness of Breath Aspirin (Ecotrin) 81 mg PO DAILY [facility] Last Admin: 09/21/17 08:11 Dose: 81 mg Atorvastatin Calcium (Lipitor) 20 mg PO DIN [facility] Last Admin: 09/20/17 17:08 Dose: 20 mg Carvedilol (Coreg) 12.5 mg PO Q12 [facility] Last Admin: 09/21/17 08:11 Dose: 12.5 mg Clonidine HCl (Catapres) 0.2 mg PO Q12 [facility] Last Admin: 09/21/17 08:12 Dose: 0.2 mg Docusate Sodium (Colace) 100 mg PO TID [facility] Last Admin: 09/21/17 12:11 Dose: 100 mg Famotidine (Pepcid) 20 mg PO DAILY [facility] Last Admin: 09/21/17 08:11 Dose: 20 mg Furosemide (Lasix) 20 mg PO DAILY [facility] Last Admin: 09/21/17 08:11 Dose: 20 mg Ibuprofen (Motrin Tab) 400 mg PO Q4 PRN PRN Reason: foot pain 1-10 Indomethacin (Indocin) 25 mg PO TID PRN PRN Reason: leg pain Last Admin: 09/21/17 08:12 Dose: 25 mg Insulin Detemir (Levemir) 10 units SC HS [facility] Last Admin: 09/20/17 21:40 Dose: 10 units Insulin Human Regular (Humulin R) 0 units SC ACHS [facility] PRN Reason: Protocol Last Admin: 09/21/17 12:11 Dose: 4 units Losartan Potassium (Cozaar) 100 mg PO DAILY [facility] Last Admin: 09/21/17 08:13 Dose: 100 mg Nifedipine (Procardia Xl) 60 mg PO DAILY [facility] Last Admin: 09/21/17 08:13 Dose: 60 mg Ondansetron HCl (Zofran Odt) 4 mg PO Q8H PRN PRN Reason: Nausea/Vomiting Polyethylene Glycol (Miralax) 17 gm PO DAILY [facility] Last Admin: 09/21/17 08:21 Dose: Not Given Valproate Sodium (Depakene Oral Soln) 250 mg PO Q12 [facility] - Labs Labs: 09/21/17 05:45 09/10/17 06:45 PT 31.1 Seconds (9.8-13.1) H D 09/21/17 05:45 INR 2.7 (0.9-1.2) H D 09/21/17 05:45
[2017-09-21] MEDS: Insulin Detemir 100 Units/ml Inj SC SCH (21:34)
[2017-09-22] MEDS: Insulin Regular 100 units/ml SC SCH ×4 (07:06→21:43)
[2017-09-22 07:07] LABS: INR 3.2 (0.9-1.2); PROTHROMBIN TIME 36.3 Seconds (9.8-13.1)
[2017-09-22] MEDS: NIFEdipine 60 mg ER Tab PO SCH (08:15)
[2017-09-22] MEDS: Valproic Acid 250 mg/5 ml UD Cup PO SCH ×2 (08:15→21:41)
[2017-09-22] MEDS: POLYETHYLENE GLYCOL 3350 17 GM/Dose PACKET PO SCH (08:17)
[2017-09-22 11:00] LABS: BLOOD UREA NITROGEN 22 mg/dl (7-17); CALCIUM 8.6 mg/dL (8.4-10.2); GFR AFRICAN-AMERICAN > 60; GFR NON-AFRICAN AMERICAN 55
--- NOTE | 2017-09-22 11:49 | CP.PCM.PN ---
Subjective - Date & Time of Evaluation Date of Evaluation: 09/22/17 Time of Evaluation: 11:43 - Subjective Subjective: Ms. Robison was seen at the bedside. She is alert, oriented with her speech clarity improving. She denies any headache, dizziness, lightheadedness, blurred vision, diplopia. She remains with right facial droop, right arm weakness and right lower extremities weakness.. She is able to follow commands, participate during therapy session.There was no untoward events overnight. Objective - Vital Signs/Intake and Output Vital Signs (last 24 hours): Temp Pulse Resp BP Pulse Ox 98.1 F 63 22 169/79 H 99 09/22/17 08:05 09/22/17 09:38 09/22/17 08:05 09/22/17 08:16 09/22/17 08:05 - Medications Medications: Current Medications Acetaminophen (Tylenol 325mg Tab) 650 mg PO Q4 PRN PRN Reason: Fever >100.4 F Acetaminophen (Tylenol 325mg Tab) 650 mg PO Q4 PRN PRN Reason: Pain scale 1-10. Last Admin: 09/12/17 23:46 Dose: 650 mg Albuterol/Ipratropium (Duoneb 3 Mg/0.5 Mg (3 Ml) Ud) 3 ml IH RQ6 PRN PRN Reason: Shortness of Breath Aspirin (Ecotrin) 81 mg PO DAILY [facility] Last Admin: 09/22/17 08:15 Dose: 81 mg Atorvastatin Calcium (Lipitor) 20 mg PO DIN [facility] Last Admin: 09/21/17 17:23 Dose: 20 mg Carvedilol (Coreg) 12.5 mg PO Q12 [facility] Last Admin: 09/22/17 08:15 Dose: 12.5 mg Clonidine HCl (Catapres) 0.2 mg PO Q12 [facility] Last Admin: 09/22/17 08:15 Dose: 0.2 mg Docusate Sodium (Colace) 100 mg PO TID [facility] Last Admin: 09/22/17 08:14 Dose: 100 mg Famotidine (Pepcid) 20 mg PO DAILY [facility] Last Admin: 09/22/17 08:14 Dose: 20 mg Furosemide (Lasix) 20 mg PO DAILY [facility] Last Admin: 09/22/17 08:14 Dose: 20 mg Ibuprofen (Motrin Tab) 400 mg PO Q4 PRN PRN Reason: foot pain 1-10 Indomethacin (Indocin) 25 mg PO TID PRN PRN Reason: leg pain Last Admin: 09/21/17 08:12 Dose: 25 mg Insulin Detemir (Levemir) 10 units SC HS [facility] Last Admin: 09/21/17 21:34 Dose: 10 units Insulin Human Regular (Humulin R) 0 units SC ACHS [facility] PRN Reason: Protocol Last Admin: 09/22/17 07:06 Dose: 1 units Losartan Potassium (Cozaar) 100 mg PO DAILY [facility] Last Admin: 09/22/17 08:16 Dose: 100 mg Nifedipine (Procardia Xl) 60 mg PO DAILY [facility] Last Admin: 09/22/17 08:15 Dose: 60 mg Ondansetron HCl (Zofran Odt) 4 mg PO Q8H PRN PRN Reason: Nausea/Vomiting Polyethylene Glycol (Miralax) 17 gm PO DAILY [facility] Last Admin: 09/22/17 08:17 Dose: Not Given Valproate Sodium (Depakene Oral Soln) 250 mg PO Q12 [facility] Last Admin: 09/22/17 08:15 Dose: 250 mg - Labs Labs: 09/21/17 05:45 09/22/17 10:20 PT 36.3 Seconds (9.8-13.1) H D 09/22/17 05:45 INR 3.2 (0.9-1.2) H 09/22/17 05:45 - Constitutional Appears: No Acute Distress - Head Exam Head Exam: NORMAL INSPECTION Additional comments: right facial droop - Neurological Exam Neurological Exam: Alert, Awake, Oriented x3 Neuro motor strength exam: Left Upper Extremity: 5, Right Upper Extremity: 2/1, Left Lower Extremity: 5, Right Lower Extremity: 3 Additional comments: Neurological unchanged from previous examination. Assessment and Plan (1) Acute CVA (cerebrovascular accident) Assessment & Plan: Case discussed with Dr. Zhao, continue all current medical, physical, occupational, and speech therapies. Recommend blood pressure control and glycemic control. Status: Acute
--- NOTE | 2017-09-22 12:35 | CP.PCM.PN ---
Subjective - Date & Time of Evaluation Date of Evaluation: 09/22/17 Time of Evaluation: 12:35 - Subjective Subjective: Patient seen in the room in good spirits conversation becomes much more in depth now no pain working hard in therapies continue current care Objective - Vital Signs/Intake and Output Vital Signs (last 24 hours): Temp Pulse Resp BP Pulse Ox 98.1 F 63 22 169/79 H 99 09/22/17 08:05 09/22/17 09:38 09/22/17 08:05 09/22/17 08:16 09/22/17 08:05 - Medications Medications: Current Medications Acetaminophen (Tylenol 325mg Tab) 650 mg PO Q4 PRN PRN Reason: Fever >100.4 F Acetaminophen (Tylenol 325mg Tab) 650 mg PO Q4 PRN PRN Reason: Pain scale 1-10. Last Admin: 09/12/17 23:46 Dose: 650 mg Albuterol/Ipratropium (Duoneb 3 Mg/0.5 Mg (3 Ml) Ud) 3 ml IH RQ6 PRN PRN Reason: Shortness of Breath Aspirin (Ecotrin) 81 mg PO DAILY [facility] Last Admin: 09/22/17 08:15 Dose: 81 mg Atorvastatin Calcium (Lipitor) 20 mg PO DIN [facility] Last Admin: 09/21/17 17:23 Dose: 20 mg Carvedilol (Coreg) 12.5 mg PO Q12 [facility] Last Admin: 09/22/17 08:15 Dose: 12.5 mg Clonidine HCl (Catapres) 0.2 mg PO Q12 [facility] Last Admin: 09/22/17 08:15 Dose: 0.2 mg Docusate Sodium (Colace) 100 mg PO TID [facility] Last Admin: 09/22/17 08:14 Dose: 100 mg Famotidine (Pepcid) 20 mg PO DAILY [facility] Last Admin: 09/22/17 08:14 Dose: 20 mg Furosemide (Lasix) 20 mg PO DAILY [facility] Last Admin: 09/22/17 08:14 Dose: 20 mg Ibuprofen (Motrin Tab) 400 mg PO Q4 PRN PRN Reason: foot pain 1-10 Indomethacin (Indocin) 25 mg PO TID PRN PRN Reason: leg pain Last Admin: 09/21/17 08:12 Dose: 25 mg Insulin Detemir (Levemir) 10 units SC [facility] Last Admin: 09/21/17 21:34 Dose: 10 units Insulin Human Regular (Humulin R) 0 units SC ACHS [facility] PRN Reason: Protocol Last Admin: 09/22/17 07:06 Dose: 1 units Losartan Potassium (Cozaar) 100 mg PO DAILY [facility] Last Admin: 09/22/17 08:16 Dose: 100 mg Nifedipine (Procardia Xl) 60 mg PO DAILY [facility] Last Admin: 09/22/17 08:15 Dose: 60 mg Ondansetron HCl (Zofran Odt) 4 mg PO Q8H PRN PRN Reason: Nausea/Vomiting Polyethylene Glycol (Miralax) 17 gm PO DAILY [facility] Last Admin: 09/22/17 08:17 Dose: Not Given Valproate Sodium (Depakene Oral Soln) 250 mg PO Q12 [facility] Last Admin: 09/22/17 08:15 Dose: 250 mg - Labs Labs: 09/21/17 05:45 09/22/17 10:20 PT 36.3 Seconds (9.8-13.1) H D 09/22/17 05:45 INR 3.2 (0.9-1.2) H 09/22/17 05:45
--- NOTE | 2017-09-22 13:26 | CP.PCM.PN ---
Subjective - Date & Time of Evaluation Date of Evaluation: 09/22/17 Time of Evaluation: 10:45 - Subjective Subjective: Patient seen and examined. No complaint. Objective - Vital Signs/Intake and Output Vital Signs (last 24 hours): Temp Pulse Resp BP Pulse Ox 98.1 F 63 22 169/79 H 99 09/22/17 08:05 09/22/17 09:38 09/22/17 08:05 09/22/17 08:16 09/22/17 08:05 - Medications Medications: Current Medications Acetaminophen (Tylenol 325mg Tab) 650 mg PO Q4 PRN PRN Reason: Fever >100.4 F Acetaminophen (Tylenol 325mg Tab) 650 mg PO Q4 PRN PRN Reason: Pain scale 1-10. Last Admin: 09/12/17 23:46 Dose: 650 mg Albuterol/Ipratropium (Duoneb 3 Mg/0.5 Mg (3 Ml) Ud) 3 ml IH RQ6 PRN PRN Reason: Shortness of Breath Aspirin (Ecotrin) 81 mg PO DAILY [facility] Last Admin: 09/22/17 08:15 Dose: 81 mg Atorvastatin Calcium (Lipitor) 20 mg PO DIN [facility] Last Admin: 09/21/17 17:23 Dose: 20 mg Carvedilol (Coreg) 12.5 mg PO Q12 [facility] Last Admin: 09/22/17 08:15 Dose: 12.5 mg Clonidine HCl (Catapres) 0.2 mg PO Q12 [facility] Last Admin: 09/22/17 08:15 Dose: 0.2 mg Docusate Sodium (Colace) 100 mg PO TID [facility] Last Admin: 09/22/17 13:16 Dose: 100 mg Famotidine (Pepcid) 20 mg PO DAILY [facility] Last Admin: 09/22/17 08:14 Dose: 20 mg Furosemide (Lasix) 20 mg PO DAILY [facility] Last Admin: 09/22/17 08:14 Dose: 20 mg Ibuprofen (Motrin Tab) 400 mg PO Q4 PRN PRN Reason: foot pain 1-10 Indomethacin (Indocin) 25 mg PO TID PRN PRN Reason: leg pain Last Admin: 09/21/17 08:12 Dose: 25 mg Insulin Detemir (Levemir) 10 units SC [facility] Last Admin: 09/21/17 21:34 Dose: 10 units Insulin Human Regular (Humulin R) 0 units SC ACHS [facility] PRN Reason: Protocol Last Admin: 09/22/17 12:05 Dose: 1 units Losartan Potassium (Cozaar) 100 mg PO DAILY [facility] Last Admin: 09/22/17 08:16 Dose: 100 mg Nifedipine (Procardia Xl) 60 mg PO DAILY [facility] Last Admin: 09/22/17 08:15 Dose: 60 mg Ondansetron HCl (Zofran Odt) 4 mg PO Q8H PRN PRN Reason: Nausea/Vomiting Polyethylene Glycol (Miralax) 17 gm PO DAILY [facility] Last Admin: 09/22/17 08:17 Dose: Not Given Valproate Sodium (Depakene Oral Soln) 250 mg PO Q12 [facility] Last Admin: 09/22/17 08:15 Dose: 250 mg - Labs Labs: 09/21/17 05:45 09/22/17 10:20 PT 36.3 Seconds (9.8-13.1) H D 09/22/17 05:45 INR 3.2 (0.9-1.2) H 09/22/17 05:45 - Constitutional Appears: No Acute Distress - Head Exam Head Exam: ATRAUMATIC - Eye Exam Eye Exam: absent: Scleral icterus - ENT Exam ENT Exam: Mucous Membranes Moist - Neck Exam Neck Exam: absent: Meningismus - Respiratory Exam Respiratory Exam: absent: Rhonchi, Wheezes, Respiratory Distress - Cardiovascular Exam Cardiovascular Exam: REGULAR RHYTHM, +S1, +S2 - GI/Abdominal Exam GI & Abdominal Exam: Soft. absent: Tenderness - Rectal Exam Rectal Exam: Deferred - Neurological Exam Neurological Exam: Alert, Oriented x3 - Psychiatric Exam Psychiatric exam: Normal Affect - Skin Skin Exam: Dry, Intact Assessment and Plan - Assessment and Plan (Free Text) Assessment: 67 yo female with history of CAD, HTN and multiple CVA was admitted at [facility] on 08/29/2017 because of right sided weakness and aphasia. CT scan showed acute infarction on left frontal parietal region. 1. Acute CVA physiatry consult with Dr Connor continue PT/OT/ST continue ASA, Lipitor and Coumadin INR - 3.2 hold Coumadin for today 2. Gout Indocin prn 3. HTN BP slightly elevated continue Coreg, Clonidine, Losartan and Nifedipine 4. DM2 BS relatively controlled Levemir 10 ubits SC HS 5. CAD continue statin, ASA 6. DVT prophylaxis patient already on Coumadin
[2017-09-22] MEDS: Insulin Detemir 100 Units/ml Inj SC SCH (21:41)
[2017-09-23] MEDS: Insulin Regular 100 units/ml SC SCH ×4 (06:58→21:00)
[2017-09-23 07:01] LABS: INR 3.2 (0.9-1.2); PROTHROMBIN TIME 35.9 Seconds (9.8-13.1)
[2017-09-23] MEDS: Valproic Acid 250 mg/5 ml UD Cup PO SCH ×2 (09:29→20:09)
[2017-09-23] MEDS: NIFEdipine 60 mg ER Tab PO SCH (09:33)
[2017-09-23] MEDS: POLYETHYLENE GLYCOL 3350 17 GM/Dose PACKET PO SCH (09:33)
--- NOTE | 2017-09-23 11:22 | CP.PCM.PN ---
Subjective - Date & Time of Evaluation Date of Evaluation: 09/23/17 Time of Evaluation: 11:18 - Subjective Subjective: Ms. Robison was seen and examined at the bedside. She is alert, oriented with her speech more clearer. She remains with right facial droop, right upper and lower extremities weakness, upper extremity weaker than the lower extremity. She is able to move her upper extremity side to side. She has a bilateral lower extremities Gabriel stockings with right ankle swollen, denies any pain, elevated lower extremities while sitting her chair. Objective - Vital Signs/Intake and Output Vital Signs (last 24 hours): Temp Pulse Resp BP Pulse Ox 96.6 F L 61 18 157/76 H 99 09/23/17 08:39 09/23/17 09:33 09/23/17 08:39 09/23/17 09:33 09/23/17 08:39 - Medications Medications: Current Medications Acetaminophen (Tylenol 325mg Tab) 650 mg PO Q4 PRN PRN Reason: Fever >100.4 F Acetaminophen (Tylenol 325mg Tab) 650 mg PO Q4 PRN PRN Reason: Pain scale 1-10. Last Admin: 09/12/17 23:46 Dose: 650 mg Albuterol/Ipratropium (Duoneb 3 Mg/0.5 Mg (3 Ml) Ud) 3 ml IH RQ6 PRN PRN Reason: Shortness of Breath Aspirin (Ecotrin) 81 mg PO DAILY [facility] Last Admin: 09/23/17 09:29 Dose: 81 mg Atorvastatin Calcium (Lipitor) 20 mg PO DIN [facility] Last Admin: 09/22/17 16:57 Dose: 20 mg Carvedilol (Coreg) 12.5 mg PO Q12 [facility] Last Admin: 09/23/17 09:29 Dose: 12.5 mg Clonidine HCl (Catapres) 0.2 mg PO Q12 [facility] Last Admin: 09/23/17 09:30 Dose: 0.2 mg Docusate Sodium (Colace) 100 mg PO TID [facility] Last Admin: 09/23/17 09:31 Dose: 100 mg Famotidine (Pepcid) 20 mg PO DAILY [facility] Last Admin: 09/23/17 09:34 Dose: 20 mg Furosemide (Lasix) 20 mg PO DAILY [facility] Last Admin: 09/23/17 09:32 Dose: 20 mg Ibuprofen (Motrin Tab) 400 mg PO Q4 PRN PRN Reason: foot pain 1-10 Indomethacin (Indocin) 25 mg PO TID PRN PRN Reason: leg pain Last Admin: 09/21/17 08:12 Dose: 25 mg Insulin Detemir (Levemir) 10 units SC [facility] Last Admin: 09/22/17 21:41 Dose: 10 units Insulin Human Regular (Humulin R) 0 units SC [facility] PRN Reason: Protocol Last Admin: 09/23/17 06:58 Dose: Not Given Losartan Potassium (Cozaar) 100 mg PO DAILY [facility] Last Admin: 09/23/17 09:30 Dose: 100 mg Nifedipine (Procardia Xl) 60 mg PO DAILY [facility] Last Admin: 09/23/17 09:33 Dose: 60 mg Ondansetron HCl (Zofran Odt) 4 mg PO Q8H PRN PRN Reason: Nausea/Vomiting Polyethylene Glycol (Miralax) 17 gm PO DAILY [facility] Last Admin: 09/23/17 09:33 Dose: Not Given Valproate Sodium (Depakene Oral Soln) 250 mg PO Q12 [facility] Last Admin: 09/23/17 09:29 Dose: 250 mg - Labs Labs: 09/21/17 05:45 09/22/17 10:20 PT 35.9 Seconds (9.8-13.1) H 09/23/17 05:30 INR 3.2 (0.9-1.2) H 09/23/17 05:30 - Constitutional Appears: No Acute Distress - Head Exam Head Exam: NORMAL INSPECTION - Neurological Exam Neurological Exam: Alert, Awake Neuro motor strength exam: Left Upper Extremity: 5, Right Upper Extremity: 2/1, Left Lower Extremity: 5, Right Lower Extremity: 3 Additional comments: Neurological unchanged from previous examination. Assessment and Plan (1) Acute CVA (cerebrovascular accident) Assessment & Plan: Case discussed with Dr. Zhao, continue all current medical, physical, occupational, and speech therapies. Recommend blood pressure control and glycemic control. Status: Acute
--- NOTE | 2017-09-23 18:10 | CP.PCM.PN ---
Subjective - Date & Time of Evaluation Date of Evaluation: 09/23/17 Time of Evaluation: 18:09 - Subjective Subjective: Patient seen in the room making daily progress in function still with dense right HP speech continues to improve as well continue current care Objective - Vital Signs/Intake and Output Vital Signs (last 24 hours): Temp Pulse Resp BP Pulse Ox 96.6 F L 61 18 157/76 H 99 09/23/17 08:39 09/23/17 09:33 09/23/17 08:39 09/23/17 09:33 09/23/17 08:39 - Medications Medications: Current Medications Acetaminophen (Tylenol 325mg Tab) 650 mg PO Q4 PRN PRN Reason: Fever >100.4 F Acetaminophen (Tylenol 325mg Tab) 650 mg PO Q4 PRN PRN Reason: Pain scale 1-10. Last Admin: 09/12/17 23:46 Dose: 650 mg Albuterol/Ipratropium (Duoneb 3 Mg/0.5 Mg (3 Ml) Ud) 3 ml IH RQ6 PRN PRN Reason: Shortness of Breath Aspirin (Ecotrin) 81 mg PO DAILY [facility] Last Admin: 09/23/17 09:29 Dose: 81 mg Atorvastatin Calcium (Lipitor) 20 mg PO DIN [facility] Last Admin: 09/23/17 17:19 Dose: 20 mg Carvedilol (Coreg) 12.5 mg PO Q12 [facility] Last Admin: 09/23/17 09:29 Dose: 12.5 mg Clonidine HCl (Catapres) 0.2 mg PO Q12 [facility] Last Admin: 09/23/17 09:30 Dose: 0.2 mg Docusate Sodium (Colace) 100 mg PO TID [facility] Last Admin: 09/23/17 17:18 Dose: 100 mg Famotidine (Pepcid) 20 mg PO DAILY [facility] Last Admin: 09/23/17 09:34 Dose: 20 mg Furosemide (Lasix) 20 mg PO DAILY [facility] Last Admin: 09/23/17 09:32 Dose: 20 mg Ibuprofen (Motrin Tab) 400 mg PO Q4 PRN PRN Reason: foot pain 1-10 Indomethacin (Indocin) 25 mg PO TID PRN PRN Reason: leg pain Last Admin: 09/21/17 08:12 Dose: 25 mg Insulin Detemir (Levemir) 10 units SC [facility] Last Admin: 09/22/17 21:41 Dose: 10 units Insulin Human Regular (Humulin R) 0 units SC [facility] PRN Reason: Protocol Last Admin: 09/23/17 17:18 Dose: 1 units Losartan Potassium (Cozaar) 100 mg PO DAILY [facility] Last Admin: 09/23/17 09:30 Dose: 100 mg Nifedipine (Procardia Xl) 60 mg PO DAILY [facility] Last Admin: 09/23/17 09:33 Dose: 60 mg Ondansetron HCl (Zofran Odt) 4 mg PO Q8H PRN PRN Reason: Nausea/Vomiting Polyethylene Glycol (Miralax) 17 gm PO DAILY [facility] Last Admin: 09/23/17 09:33 Dose: Not Given Valproate Sodium (Depakene Oral Soln) 250 mg PO Q12 [facility] Last Admin: 09/23/17 09:29 Dose: 250 mg - Labs Labs: 09/21/17 05:45 09/22/17 10:20 PT 35.9 Seconds (9.8-13.1) H 09/23/17 05:30 INR 3.2 (0.9-1.2) H 09/23/17 05:30
[2017-09-23] MEDS: Insulin Detemir 100 Units/ml Inj SC SCH (21:53)
[2017-09-24 06:44] LABS: HEMOGLOBIN 8.5 g/dL (12.0-16.0); MEAN CELL VOLUME 86.8 fl (81.0-99.0); MEAN CORPUSCULAR HEMOGLOBIN 27.2 pg (27.0-31.0); MEAN CORPUSCULAR HGB CONC 31.3 g/dL (33.0-37.0); RBC 3.13 Mil/uL (3.80-5.20); RED CELL DISTRIBUTION WIDTH 17.7 % (11.5-14.5); WHITE BLOOD COUNT 4.2 K/uL (4.8-10.8)
[2017-09-24 06:45] LABS: PROTHROMBIN TIME 22.8 Seconds (9.8-13.1)
[2017-09-24] MEDS: Insulin Regular 100 units/ml SC SCH ×4 (07:42→22:06)
[2017-09-24] MEDS: POLYETHYLENE GLYCOL 3350 17 GM/Dose PACKET PO SCH (09:20)
[2017-09-24] MEDS: NIFEdipine 60 mg ER Tab PO SCH (09:20)
[2017-09-24] MEDS: Valproic Acid 250 mg/5 ml UD Cup PO SCH ×2 (09:20→22:04)
--- NOTE | 2017-09-24 09:36 | CP.PCM.PN ---
Subjective - Date & Time of Evaluation Date of Evaluation: 09/24/17 Time of Evaluation: 09:34 - Subjective Subjective: Ms. Robison was seen and examined at the bedside. She is alert, oriented with her speech more clearer. She remains with right facial droop, right upper and lower extremities weakness, upper extremity weaker than the lower extremity. She is able to move her upper extremity side to side. She has a bilateral lower extremities Gabriel stockings on her bilateral lower extremities. There was no untoward events overnight. Objective - Vital Signs/Intake and Output Vital Signs (last 24 hours): Temp Pulse Resp BP Pulse Ox 97.5 F L 64 19 154/71 H 97 09/24/17 09:31 09/24/17 09:31 09/24/17 09:31 09/24/17 09:31 09/24/17 09:31 - Medications Medications: Current Medications Acetaminophen (Tylenol 325mg Tab) 650 mg PO Q4 PRN PRN Reason: Fever >100.4 F Acetaminophen (Tylenol 325mg Tab) 650 mg PO Q4 PRN PRN Reason: Pain scale 1-10. Last Admin: 09/12/17 23:46 Dose: 650 mg Albuterol/Ipratropium (Duoneb 3 Mg/0.5 Mg (3 Ml) Ud) 3 ml IH RQ6 PRN PRN Reason: Shortness of Breath Aspirin (Ecotrin) 81 mg PO DAILY [facility] Last Admin: 09/24/17 09:20 Dose: 81 mg Atorvastatin Calcium (Lipitor) 20 mg PO DIN [facility] Last Admin: 09/23/17 17:19 Dose: 20 mg Carvedilol (Coreg) 12.5 mg PO Q12 [facility] Last Admin: 09/24/17 09:18 Dose: 12.5 mg Clonidine HCl (Catapres) 0.2 mg PO Q12 [facility] Last Admin: 09/24/17 09:21 Dose: 0.2 mg Docusate Sodium (Colace) 100 mg PO TID [facility] Last Admin: 09/24/17 09:17 Dose: 100 mg Famotidine (Pepcid) 20 mg PO DAILY [facility] Last Admin: 09/24/17 09:21 Dose: 20 mg Furosemide (Lasix) 20 mg PO DAILY [facility] Last Admin: 09/24/17 09:20 Dose: 20 mg Ibuprofen (Motrin Tab) 400 mg PO Q4 PRN PRN Reason: foot pain 1-10 Indomethacin (Indocin) 25 mg PO TID PRN PRN Reason: leg pain Last Admin: 09/21/17 08:12 Dose: 25 mg Insulin Detemir (Levemir) 10 units SC HS [facility] Last Admin: 09/23/17 21:53 Dose: 10 units Insulin Human Regular (Humulin R) 0 units SC ACHS [facility] PRN Reason: Protocol Last Admin: 09/24/17 07:42 Dose: 1 units Losartan Potassium (Cozaar) 100 mg PO DAILY [facility] Last Admin: 09/24/17 09:19 Dose: 100 mg Nifedipine (Procardia Xl) 60 mg PO DAILY [facility] Last Admin: 09/24/17 09:20 Dose: 60 mg Ondansetron HCl (Zofran Odt) 4 mg PO Q8H PRN PRN Reason: Nausea/Vomiting Polyethylene Glycol (Miralax) 17 gm PO DAILY [facility] Last Admin: 09/24/17 09:20 Dose: 17 gm Valproate Sodium (Depakene Oral Soln) 250 mg PO Q12 [facility] Last Admin: 09/24/17 09:20 Dose: 250 mg - Labs Labs: 09/24/17 05:25 09/22/17 10:20 PT 22.8 Seconds (9.8-13.1) H D 09/24/17 05:25 INR 2.0 (0.9-1.2) H D 09/24/17 05:25 - Constitutional Appears: No Acute Distress - Head Exam Head Exam: NORMAL INSPECTION - Neurological Exam Neurological Exam: Alert, Awake, Oriented x3 Neuro motor strength exam: Left Upper Extremity: 5, Right Upper Extremity: 2/1, Left Lower Extremity: 5, Right Lower Extremity: 3 Additional comments: Neurological unchanged from previous examination. Assessment and Plan (1) Acute CVA (cerebrovascular accident) Assessment & Plan: Case discussed with Dr. Zhao, continue all current medical, physical, occupational, and speech therapies. Recommend blood pressure control and glycemic control. Status: Acute
--- NOTE | 2017-09-24 10:59 | CP.PCM.PN ---
Subjective - Date & Time of Evaluation Date of Evaluation: 09/24/17 Time of Evaluation: 10:30 - Subjective Subjective: Patient seen and examined. Denied any complaint but therapist commented that she has been having fecal and urinary incontinence Objective - Vital Signs/Intake and Output Vital Signs (last 24 hours): Temp Pulse Resp BP Pulse Ox 97.5 F L 64 19 154/71 H 97 09/24/17 09:31 09/24/17 09:31 09/24/17 09:31 09/24/17 09:31 09/24/17 09:31 - Medications Medications: Current Medications Acetaminophen (Tylenol 325mg Tab) 650 mg PO Q4 PRN PRN Reason: Fever >100.4 F Acetaminophen (Tylenol 325mg Tab) 650 mg PO Q4 PRN PRN Reason: Pain scale 1-10. Last Admin: 09/12/17 23:46 Dose: 650 mg Albuterol/Ipratropium (Duoneb 3 Mg/0.5 Mg (3 Ml) Ud) 3 ml IH RQ6 PRN PRN Reason: Shortness of Breath Aspirin (Ecotrin) 81 mg PO DAILY [facility] Last Admin: 09/24/17 09:20 Dose: 81 mg Atorvastatin Calcium (Lipitor) 20 mg PO DIN [facility] Last Admin: 09/23/17 17:19 Dose: 20 mg Carvedilol (Coreg) 12.5 mg PO Q12 [facility] Last Admin: 09/24/17 09:18 Dose: 12.5 mg Clonidine HCl (Catapres) 0.2 mg PO Q12 [facility] Last Admin: 09/24/17 09:21 Dose: 0.2 mg Docusate Sodium (Colace) 100 mg PO TID [facility] Last Admin: 09/24/17 09:17 Dose: 100 mg Famotidine (Pepcid) 20 mg PO DAILY [facility] Last Admin: 09/24/17 09:21 Dose: 20 mg Furosemide (Lasix) 20 mg PO DAILY [facility] Last Admin: 09/24/17 09:20 Dose: 20 mg Ibuprofen (Motrin Tab) 400 mg PO Q4 PRN PRN Reason: foot pain 1-10 Indomethacin (Indocin) 25 mg PO TID PRN PRN Reason: leg pain Last Admin: 09/21/17 08:12 Dose: 25 mg Insulin Detemir (Levemir) 10 units SC [facility] Last Admin: 09/23/17 21:53 Dose: 10 units Insulin Human Regular (Humulin R) 0 units SC ACHS [facility] PRN Reason: Protocol Last Admin: 09/24/17 07:42 Dose: 1 units Losartan Potassium (Cozaar) 100 mg PO DAILY [facility] Last Admin: 09/24/17 09:19 Dose: 100 mg Nifedipine (Procardia Xl) 60 mg PO DAILY [facility] Last Admin: 09/24/17 09:20 Dose: 60 mg Ondansetron HCl (Zofran Odt) 4 mg PO Q8H PRN PRN Reason: Nausea/Vomiting Polyethylene Glycol (Miralax) 17 gm PO DAILY [facility] Last Admin: 09/24/17 09:20 Dose: 17 gm Valproate Sodium (Depakene Oral Soln) 250 mg PO Q12 [facility] Last Admin: 09/24/17 09:20 Dose: 250 mg - Labs Labs: 09/24/17 05:25 09/22/17 10:20 PT 22.8 Seconds (9.8-13.1) H D 09/24/17 05:25 INR 2.0 (0.9-1.2) H D 09/24/17 05:25 - Constitutional Appears: No Acute Distress - Head Exam Head Exam: ATRAUMATIC - Eye Exam Eye Exam: absent: Scleral icterus - ENT Exam ENT Exam: Mucous Membranes Moist - Neck Exam Neck Exam: absent: Meningismus - Respiratory Exam Respiratory Exam: absent: Rhonchi, Wheezes, Respiratory Distress - Cardiovascular Exam Cardiovascular Exam: REGULAR RHYTHM, +S1, +S2 - GI/Abdominal Exam GI & Abdominal Exam: Soft. absent: Tenderness - Rectal Exam Rectal Exam: Deferred - Neurological Exam Neurological Exam: Alert, Oriented x3 - Psychiatric Exam Psychiatric exam: Normal Affect - Skin Skin Exam: Dry, Intact Assessment and Plan - Assessment and Plan (Free Text) Assessment: 67 yo female with history of CAD, HTN and multiple CVA [place] [facility] [place] because of right sided weakness and aphasia. CT scan showed acute infarction on left frontal parietal region. 1. Acute CVA physiatry consult with Dr Geeta Zhao on neuro consult continue PT/OT/ST continue ASA, Lipitor and Coumadin INR - 2.0 Coumadin 4mg PO today 2. Gout Indocin prn 3. HTN BP slightly elevated continue Coreg, Clonidine, Losartan and Nifedipine 4. DM2 BS relatively controlled Levemir 10 ubits SC HS 5. CAD continue statin, ASA 6. DVT prophylaxis patient on Coumadin
--- NOTE | 2017-09-24 16:50 | CP.PCM.PN ---
Subjective - Date & Time of Evaluation Date of Evaluation: 09/24/17 Time of Evaluation: 16:48 - Subjective Subjective: Patient seen in PT gym, doing well in good spirits no pain no sob/fever continue current care Objective - Vital Signs/Intake and Output Vital Signs (last 24 hours): Temp Pulse Resp BP Pulse Ox 97.5 F L 64 19 154/71 H 97 09/24/17 09:31 09/24/17 09:31 09/24/17 09:31 09/24/17 09:31 09/24/17 09:31 - Medications Medications: Current Medications Acetaminophen (Tylenol 325mg Tab) 650 mg PO Q4 PRN PRN Reason: Fever >100.4 F Acetaminophen (Tylenol 325mg Tab) 650 mg PO Q4 PRN PRN Reason: Pain scale 1-10. Last Admin: 09/12/17 23:46 Dose: 650 mg Albuterol/Ipratropium (Duoneb 3 Mg/0.5 Mg (3 Ml) Ud) 3 ml IH RQ6 PRN PRN Reason: Shortness of Breath Aspirin (Ecotrin) 81 mg PO DAILY [facility] Last Admin: 09/24/17 09:20 Dose: 81 mg Atorvastatin Calcium (Lipitor) 20 mg PO DIN [facility] Last Admin: 09/23/17 17:19 Dose: 20 mg Carvedilol (Coreg) 12.5 mg PO Q12 [facility] Last Admin: 09/24/17 09:18 Dose: 12.5 mg Clonidine HCl (Catapres) 0.2 mg PO Q12 [facility] Last Admin: 09/24/17 09:21 Dose: 0.2 mg Docusate Sodium (Colace) 100 mg PO TID [facility] Last Admin: 09/24/17 09:17 Dose: 100 mg Famotidine (Pepcid) 20 mg PO DAILY [facility] Last Admin: 09/24/17 09:21 Dose: 20 mg Furosemide (Lasix) 20 mg PO DAILY [facility] Last Admin: 09/24/17 09:20 Dose: 20 mg Ibuprofen (Motrin Tab) 400 mg PO Q4 PRN PRN Reason: foot pain 1-10 Indomethacin (Indocin) 25 mg PO TID PRN PRN Reason: leg pain Last Admin: 09/21/17 08:12 Dose: 25 mg Insulin Detemir (Levemir) 10 units SC [facility] Last Admin: 09/23/17 21:53 Dose: 10 units Insulin Human Regular (Humulin R) 0 units SC ACHS [facility] PRN Reason: Protocol Last Admin: 09/24/17 11:30 Dose: 1 units Losartan Potassium (Cozaar) 100 mg PO DAILY [facility] Last Admin: 09/24/17 09:19 Dose: 100 mg Nifedipine (Procardia Xl) 60 mg PO DAILY [facility] Last Admin: 09/24/17 09:20 Dose: 60 mg Ondansetron HCl (Zofran Odt) 4 mg PO Q8H PRN PRN Reason: Nausea/Vomiting Polyethylene Glycol (Miralax) 17 gm PO DAILY [facility] Last Admin: 09/24/17 09:20 Dose: 17 gm Valproate Sodium (Depakene Oral Soln) 250 mg PO Q12 [facility] Last Admin: 09/24/17 09:20 Dose: 250 mg Warfarin Sodium (Coumadin) 4 mg PO QD5 [facility] PRN Reason: Protocol Stop: 09/24/17 17:01 - Labs Labs: 09/24/17 05:25 09/22/17 10:20 PT 22.8 Seconds (9.8-13.1) H D 09/24/17 05:25 INR 2.0 (0.9-1.2) H D 09/24/17 05:25
[2017-09-24] MEDS: Insulin Detemir 100 Units/ml Inj SC SCH (22:03)
[2017-09-25] MEDS: Insulin Regular 100 units/ml SC SCH ×4 (06:33→21:35)
[2017-09-25] MEDS: POLYETHYLENE GLYCOL 3350 17 GM/Dose PACKET PO SCH (09:02)
[2017-09-25] MEDS: Valproic Acid 250 mg/5 ml UD Cup PO SCH ×2 (09:03→21:33)
[2017-09-25] MEDS: NIFEdipine 60 mg ER Tab PO SCH (09:05)
[2017-09-25 11:49] LABS: INR 1.6 (0.9-1.2)
[2017-09-25 12:14] LABS: PROTHROMBIN TIME 17.4 Seconds (9.8-13.1)
[2017-09-25] MEDS: Insulin Detemir 100 Units/ml Inj SC SCH (21:34)
[2017-09-26] MEDS: Insulin Regular 100 units/ml SC SCH ×4 (06:33→21:18)
[2017-09-26 08:51] LABS: INR 1.6 (0.9-1.2); PROTHROMBIN TIME 18.2 Seconds (9.8-13.1)
[2017-09-26] MEDS: NIFEdipine 60 mg ER Tab PO SCH (09:23)
[2017-09-26] MEDS: Valproic Acid 250 mg/5 ml UD Cup PO SCH ×2 (09:23→21:09)
[2017-09-26] MEDS: POLYETHYLENE GLYCOL 3350 17 GM/Dose PACKET PO SCH (09:24)
[2017-09-26] MEDS: Insulin Detemir 100 Units/ml Inj SC SCH (21:17)
[2017-09-27] MEDS: Insulin Regular 100 units/ml SC SCH ×4 (07:07→21:26)
[2017-09-27 07:12] LABS: HEMOGLOBIN 9.2 g/dL (12.0-16.0); MEAN CELL VOLUME 86.2 fl (81.0-99.0); MEAN CORPUSCULAR HEMOGLOBIN 27.4 pg (27.0-31.0); MEAN CORPUSCULAR HGB CONC 31.8 g/dL (33.0-37.0); RBC 3.35 Mil/uL (3.80-5.20); WHITE BLOOD COUNT 4.3 K/uL (4.8-10.8)
[2017-09-27 07:22] LABS: PROTHROMBIN TIME 22.8 Seconds (9.8-13.1)
[2017-09-27] MEDS: NIFEdipine 60 mg ER Tab PO SCH (08:19)
[2017-09-27] MEDS: Valproic Acid 250 mg/5 ml UD Cup PO SCH ×2 (08:21→21:24)
[2017-09-27] MEDS: POLYETHYLENE GLYCOL 3350 17 GM/Dose PACKET PO SCH (08:21)
--- NOTE | 2017-09-27 17:54 | CP.PCM.PN ---
Subjective - Date & Time of Evaluation Date of Evaluation: 09/27/17 Time of Evaluation: 10:35 - Subjective Subjective: Patient seen and examined. Still with right sided weakness but admitted that she is improving. Objective - Vital Signs/Intake and Output Vital Signs (last 24 hours): Temp Pulse Resp BP Pulse Ox 97.7 F 64 19 189/88 H 98 09/27/17 10:00 09/27/17 10:00 09/27/17 10:00 09/27/17 10:00 09/27/17 10:00 - Medications Medications: Current Medications Acetaminophen (Tylenol 325mg Tab) 650 mg PO Q4 PRN PRN Reason: Fever >100.4 F Acetaminophen (Tylenol 325mg Tab) 650 mg PO Q4 PRN PRN Reason: Pain scale 1-10. Last Admin: 09/12/17 23:46 Dose: 650 mg Albuterol/Ipratropium (Duoneb 3 Mg/0.5 Mg (3 Ml) Ud) 3 ml IH RQ6 PRN PRN Reason: Shortness of Breath Aspirin (Ecotrin) 81 mg PO DAILY [facility] Last Admin: 09/27/17 08:21 Dose: 81 mg Atorvastatin Calcium (Lipitor) 20 mg PO DIN [facility] Last Admin: 09/27/17 16:12 Dose: 20 mg Carvedilol (Coreg) 12.5 mg PO Q12 [facility] Last Admin: 09/27/17 08:20 Dose: 12.5 mg Clonidine HCl (Catapres) 0.2 mg PO Q12 [facility] Last Admin: 09/27/17 08:20 Dose: 0.2 mg Docusate Sodium (Colace) 100 mg PO TID [facility] Last Admin: 09/27/17 16:12 Dose: 100 mg Famotidine (Pepcid) 20 mg PO DAILY [facility] Last Admin: 09/27/17 08:21 Dose: 20 mg Furosemide (Lasix) 20 mg PO DAILY [facility] Last Admin: 09/27/17 08:20 Dose: 20 mg Ibuprofen (Motrin Tab) 400 mg PO Q4 PRN PRN Reason: foot pain 1-10 Indomethacin (Indocin) 25 mg PO TID PRN PRN Reason: leg pain Last Admin: 09/21/17 08:12 Dose: 25 mg Insulin Detemir (Levemir) 10 units SC [facility] Last Admin: 09/26/17 21:17 Dose: 10 units Insulin Human Regular (Humulin R) 0 units SC ACHS [facility] PRN Reason: Protocol Last Admin: 09/27/17 16:12 Dose: 2 units Losartan Potassium (Cozaar) 100 mg PO DAILY [facility] Last Admin: 09/27/17 08:19 Dose: 100 mg Nifedipine (Procardia Xl) 60 mg PO DAILY [facility] Last Admin: 09/27/17 08:19 Dose: 60 mg Ondansetron HCl (Zofran Odt) 4 mg PO Q8H PRN PRN Reason: Nausea/Vomiting Polyethylene Glycol (Miralax) 17 gm PO DAILY [facility] Last Admin: 09/27/17 08:21 Dose: Not Given Valproate Sodium (Depakene Oral Soln) 250 mg PO Q12 [facility] Last Admin: 09/27/17 08:21 Dose: 250 mg - Labs Labs: 09/27/17 05:35 09/22/17 10:20 PT 22.8 Seconds (9.8-13.1) H 09/27/17 05:35 INR 2.0 (0.9-1.2) H 09/27/17 05:35 - Constitutional Appears: No Acute Distress - Head Exam Head Exam: ATRAUMATIC - Eye Exam Eye Exam: absent: Scleral icterus - ENT Exam ENT Exam: Mucous Membranes Moist - Neck Exam Neck Exam: absent: Meningismus - Respiratory Exam Respiratory Exam: absent: Rales, Rhonchi, Wheezes, Respiratory Distress - Cardiovascular Exam Cardiovascular Exam: REGULAR RHYTHM, +S1, +S2 - GI/Abdominal Exam GI & Abdominal Exam: Soft. absent: Tenderness - Rectal Exam Rectal Exam: Deferred - Neurological Exam Neurological Exam: Alert, Oriented x3 - Psychiatric Exam Psychiatric exam: Normal Affect - Skin Skin Exam: Dry, Intact Assessment and Plan - Assessment and Plan (Free Text) Assessment: 67 yo female with history of CAD, HTN and multiple CVA was admitted at [facility] on 08/29/2017 because of right sided weakness and aphasia. CT scan showed acute infarct on left fronto-parietal region. 1. Acute CVA physiatry consult with Dr Geeta Zhao on neuro consult continue PT/OT/ST continue ASA, Lipitor and Coumadin INR - 2.0 Coumadin 5mg PO today 2. Gout Indocin prn 3. HTN BP elevated continue Coreg, Clonidine, Losartan and Nifedipine will add HCTZ 25mg PO daily 4. DM2 BS uncontrolled Levemir 10 units SC HS 5. CAD continue statin, ASA 6. DVT prophylaxis patient on Coumadin
[2017-09-27] MEDS: Insulin Detemir 100 Units/ml Inj SC SCH (21:25)
[2017-09-28] MEDS: Insulin Regular 100 units/ml SC SCH ×4 (06:47→21:37)
[2017-09-28 06:59] LABS: INR 2.5 (0.9-1.2); PROTHROMBIN TIME 28.2 Seconds (9.8-13.1)
[2017-09-28] MEDS: Valproic Acid 250 mg/5 ml UD Cup PO SCH ×2 (08:14→21:39)
[2017-09-28] MEDS: NIFEdipine 60 mg ER Tab PO SCH (08:16)
[2017-09-28] MEDS: POLYETHYLENE GLYCOL 3350 17 GM/Dose PACKET PO SCH (08:18)
--- NOTE | 2017-09-28 13:21 | PSY.TMCNF ---
Nursing - Vital Signs Vital Signs (Last 8 hours): Vital Signs 09/28/17 09/28/17 09/28/17 08:04 08:14 08:15 Temperature 97.3 F L Pulse Rate 62 Respiratory 18 Rate Blood Pressure 166/77 H 166/77 H 166/77 H O2 Sat by Pulse 99 Oximetry 09/28/17 09/28/17 08:16 09:00 Temperature 97.3 F L Pulse Rate 62 Respiratory 18 Rate Blood Pressure 166/77 H 166/77 H O2 Sat by Pulse Oximetry Pain: 0 - Precautions: Precautions: Fall Prevention, Aspiration - Medications/Other Issues Comment: Improving continence. Toileted q2 hrs. - Consults Comment: Dr. King, Dr. Connor, Dr. Zhao - Toileting Toileting: Dependent - Bladder Management Bladder Pattern: Normal, Incontinent Voiding Method: Toilet, Bedpan, Diaper Bladder Management: Maximal Assistance Frequency of Accidents: >5 - Bowel Management Bowel Pattern: Constipated, Incontinent Bowel Management: Maximal Assistance Frequency of Accidents: 1 - Transfers Transfers: Dependent - ADL's ADL's: Dependent - Pain Management Comments: Ibuprofen or Indocin PRN - Patient/Family Teaching Comments: Care post CVA and safety precautions - Goals/Time Frame Comments: PER MULTIDISCIPLINARY CARE PLAN GOALS - Provider Provider: ALANNA RAMIREZN RN CRRN Physical Therapy - Bed Mobility Bed Mobility: Minimal Assistance - Transfers Sit to Stand: Contact Guard - Ambulation Level of Assistance: Contact Guard, Minimal Assistance Distance (ft.): 140 Assistive Devices: N/A - Stair Negotiation Stairs: Level of Assistance: Minimal Assistance, Moderate Assistance Number of Stairs: 12 Handrails: Left - Standing Balance Static Stand: Contact Guard Assist Dynamic Stand: Minimal Assistance - Pain Pain (assessed during therapy session): 0 - Insight/Carryover Insight/Carryover: Good - Patient/Family Education Comment: Pt education provided for increased safety awareness and proper techniques during functional mobility training - Assessment/Plan Assessment: Pt participated in 90 minute PT tx sessions focusing on BLE strengthening exercises, balance activities, and functional mobility training. Pt able to negotiate flight of stairs today , min A ascending, min/mod A descending. Practiced ambulating without AD with min A. Pt will continue to benefit from skilled PT intervention to address deficits, reduce fall risk, and maximzie functional independence. - Goals Timeframe: 2 weeks Goals: Sit < > supine mod I. SIt < > stand with supervision; bed to chair transfers with supervision. Pt will ambulate 200 ft without AD and Supervision. Pt will ascend/descend flight of stairs with supervision with L handrail - Provider License Number: [id number] Occupational Therapy - Arousal/Attention/Orientation Patient Orientation: Person, Place - ADL/IADL Self Feeding: Supervision, Verbal Cues, Set-up Help Grooming: Supervision, Verbal Cues, Set-up Help, Contact Guard Bathing-Upper Extremity: Verbal Cues, Set-up Help, Moderate Assistance Bathing-Lower Extremity: Verbal Cues, Set-up Help, Moderate Assistance Dressing-Upper Extremity: Verbal Cues, Set-up Help, Minimal Assistance Dressing-Lower Extremity: Verbal Cues, Set-up Help, Moderate Assistance - Sitting Balance Static Sitting: Supervision Dynamic Sitting: Reaches across midline, Reaches out of base of support, Reaches within base of support, Contact Guard Assist Comment: unsupported seated - Transfers Wheelchair to Bed Transfers: Verbal Cues, Set-up Help, Contact Guard, Minimal Assistance Toilet Transfers: Verbal Cues, Set-up Help, Contact Guard, Minimal Assistance - Wheelchair Management Level of Assistance: Moderate Assistance Distance (ft.): 75 - Upper Extremity Status Right Upper Extremity Comment: PROM is WNLS, but Minimal/beginning active movement noted in R shoulder/elbow--gravity eliminated plane- Left Upper Extremity Comment: P/AROM is WFLS - Pain Pain (assessed during therapy session): 0 - Insight/Carryover Insight/Carryover: Good - Patient/Family Education Comment: Pt education provided for increased safety awareness and proper techniques during functional mobility training - Assessment/Plan Assessment: Pt participated in 90 minute PT tx sessions focusing on BLE strengthening exercises, balance activities, and functional mobility training. Pt able to negotiate flight of stairs today , min A ascending, min/mod A descending. Practiced ambulating without AD with min A. Pt will continue to benefit from skilled PT intervention to address deficits, reduce fall risk, and maximzie functional independence. - Goals Timeframe: 2 weeks Goals: Sit < > supine mod I. SIt < > stand with supervision; bed to chair transfers with supervision. Pt will ambulate 200 ft without AD and Supervision. Pt will ascend/descend flight of stairs with supervision with L handrail - Provider Therapist: RUDY Hammonds/[facility] - Consult Information Patient on Program: Yes Medical Diagnosis: CVA Treatment Diagnosis: -mild-moderate receptive aphasia. -moderate expressive aphasia - Assessment Expressive Language Impairment: Moderate Receptive Language Impairment: Moderate Comment: mild-moderate - Plan Assessment: Pt participated in 90 minute PT tx sessions focusing on BLE strengthening exercises, balance activities, and functional mobility training. Pt able to negotiate flight of stairs today , min A ascending, min/mod A descending. Practiced ambulating without AD with min A. Pt will continue to benefit from skilled PT intervention to address deficits, reduce fall risk, and maximzie functional independence. - Provider Therapist: Vee Odell License Number: [id number] Recreational Therapy - Participation Participation: Participates in Individual and/or Group Sessions - Attendance Attendance: 3-5 times per week - Activities Leisure Activities: Cards and Games - Socialization Level of Socialization: Initiates/interacts freely with care givers and peer, Requires 1:1 guidance to respond - Diversional Time Diversional Time: likes cards, television - Assessment Assessment/Plan: Pt participated in 90 minute PT tx sessions focusing on BLE strengthening exercises, balance activities, and functional mobility training. Pt able to negotiate flight of stairs today , min A ascending, min/mod A descending. Practiced ambulating without AD with min A. Pt will continue to benefit from skilled PT intervention to address deficits, reduce fall risk, and maximzie functional independence. - Provider Therapist: Nicky Mtz, RN WOUND CARE #[id number] Nutrition - Current Diet Current Diet/ Supplement/ Feedings: Moderate consistent CHO advanced bite size thin liquids glucerna shake 8 ounces 2 per day(440 kcal and 19.8 grams of protein) - Appetite Percent Meal Consumed: 75-100% - Comments Comments: Care post CVA and safety precautions - Assessment/Goals/Time Frame Assessment/Goals/Time Frame: Improving continence. Toileted q2 hrs. - Provider Provider: Miriam Herrera RD Case Management - Psychosocial Assessment Support Systems: Matheus Riojas (spouse)- [phone] Psychological Interventions/Needs: Patient alert with mild-moderate receptive and moderate expressive aphasia Discharge Concerns: Patient currently requiring max-total A overall for functional mobility. Patient/Family Meeting: CM met with patient and rehab team Intervention/Goal/Outcome:: 1. Plan: [facility] as patient demonstrates impairments in functional moblity, however continues to make progress in therapy- list of local [facility] provided to family. 2. Tentative discharge date: 10/03/2017. 4. continued stay auth, LAD: 09/23. 5. caregiver training? - Discharge Plan Discharge Plan: Subacute care - Provider Provider: STEPHON Sorensen, [employer] License Number: [id number] Rehabilitation Plan - Discharge Plan Estimated Date of Discharge: 10/03/17 Discharge to: Subacute
--- NOTE | 2017-09-28 13:45 | CP.PCM.PN ---
Subjective - Date & Time of Evaluation Date of Evaluation: 09/28/17 Time of Evaluation: 13:42 - Subjective Subjective: Patient seen in OT, doing well. She unfortunately is not doing well enough to be safe at home. Her works during the day. If she goes home now she will lose some of her gains given less therapy. I am strongly recommending [facility] She seems to understand but is not happy and does want to go home. Objective - Vital Signs/Intake and Output Vital Signs (last 24 hours): Temp Pulse Resp BP Pulse Ox 97.3 F L 62 18 166/77 H 99 09/28/17 09:00 09/28/17 09:00 09/28/17 09:00 09/28/17 09:00 09/28/17 08:04 - Medications Medications: Current Medications Acetaminophen (Tylenol 325mg Tab) 650 mg PO Q4 PRN PRN Reason: Fever >100.4 F Acetaminophen (Tylenol 325mg Tab) 650 mg PO Q4 PRN PRN Reason: Pain scale 1-10. Last Admin: 09/12/17 23:46 Dose: 650 mg Albuterol/Ipratropium (Duoneb 3 Mg/0.5 Mg (3 Ml) Ud) 3 ml IH RQ6 PRN PRN Reason: Shortness of Breath Aspirin (Ecotrin) 81 mg PO DAILY [facility] Last Admin: 09/28/17 08:16 Dose: 81 mg Atorvastatin Calcium (Lipitor) 20 mg PO DIN [facility] Last Admin: 09/27/17 16:12 Dose: 20 mg Carvedilol (Coreg) 12.5 mg PO Q12 [facility] Last Admin: 09/28/17 08:16 Dose: 12.5 mg Clonidine HCl (Catapres) 0.2 mg PO Q12 [facility] Last Admin: 09/28/17 08:15 Dose: 0.2 mg Docusate Sodium (Colace) 100 mg PO TID [facility] Last Admin: 09/28/17 12:29 Dose: 100 mg Famotidine (Pepcid) 20 mg PO DAILY [facility] Last Admin: 09/28/17 08:16 Dose: 20 mg Hydrochlorothiazide (Hydrodiuril) 25 mg PO DAILY [facility] Last Admin: 09/28/17 08:16 Dose: 25 mg Ibuprofen (Motrin Tab) 400 mg PO Q4 PRN PRN Reason: foot pain 1-10 Indomethacin (Indocin) 25 mg PO TID PRN PRN Reason: leg pain Last Admin: 09/21/17 08:12 Dose: 25 mg Insulin Detemir (Levemir) 10 units SC HS [facility] Last Admin: 09/27/17 21:25 Dose: 10 units Insulin Human Regular (Humulin R) 0 units SC [facility] PRN Reason: Protocol Last Admin: 09/28/17 12:28 Dose: 2 units Losartan Potassium (Cozaar) 100 mg PO DAILY [facility] Last Admin: 09/28/17 08:14 Dose: 100 mg Nifedipine (Procardia Xl) 60 mg PO DAILY [facility] Last Admin: 09/28/17 08:16 Dose: 60 mg Ondansetron HCl (Zofran Odt) 4 mg PO Q8H PRN PRN Reason: Nausea/Vomiting Polyethylene Glycol (Miralax) 17 gm PO DAILY [facility] Last Admin: 09/28/17 08:18 Dose: Not Given Valproate Sodium (Depakene Oral Soln) 250 mg PO Q12 [facility] Last Admin: 09/28/17 08:14 Dose: 250 mg Warfarin Sodium (Coumadin) 4 mg PO QD5 [facility] PRN Reason: Protocol Stop: 09/28/17 17:01 - Labs Labs: 09/27/17 05:35 09/22/17 10:20 PT 28.2 Seconds (9.8-13.1) H D 09/28/17 05:30 INR 2.5 (0.9-1.2) H D 09/28/17 05:30
[2017-09-28] MEDS: Insulin Detemir 100 Units/ml Inj SC SCH (21:40)
[2017-09-29] MEDS: Insulin Regular 100 units/ml SC SCH ×4 (06:41→21:59)
[2017-09-29 06:44] LABS: INR 2.6 (0.9-1.2); PROTHROMBIN TIME 29.7 Seconds (9.8-13.1)
[2017-09-29] MEDS: NIFEdipine 60 mg ER Tab PO SCH (08:35)
[2017-09-29] MEDS: Valproic Acid 250 mg/5 ml UD Cup PO SCH ×2 (08:35→21:55)
[2017-09-29] MEDS: POLYETHYLENE GLYCOL 3350 17 GM/Dose PACKET PO SCH (08:37)
--- NOTE | 2017-09-29 11:02 | CP.PCM.PN ---
Subjective - Date & Time of Evaluation Date of Evaluation: 09/29/17 Time of Evaluation: 10:00 - Subjective Subjective: Patient seen and examined. States that she is doing better. Doing well with therapies. Continues to improve. Still uncontrolled hypertension but otherwise hemodynamically stable. Objective - Vital Signs/Intake and Output Vital Signs (last 24 hours): Temp Pulse Resp BP Pulse Ox 97.7 F 60 20 164/77 H 98 09/29/17 07:56 09/29/17 08:35 09/29/17 07:56 09/29/17 08:36 09/29/17 07:56 - Medications Medications: Current Medications Acetaminophen (Tylenol 325mg Tab) 650 mg PO Q4 PRN PRN Reason: Fever >100.4 F Acetaminophen (Tylenol 325mg Tab) 650 mg PO Q4 PRN PRN Reason: Pain scale 1-10. Last Admin: 09/12/17 23:46 Dose: 650 mg Albuterol/Ipratropium (Duoneb 3 Mg/0.5 Mg (3 Ml) Ud) 3 ml IH RQ6 PRN PRN Reason: Shortness of Breath Aspirin (Ecotrin) 81 mg PO DAILY [facility] Last Admin: 09/29/17 08:37 Dose: 81 mg Atorvastatin Calcium (Lipitor) 20 mg PO DIN [facility] Last Admin: 09/28/17 17:24 Dose: 20 mg Carvedilol (Coreg) 12.5 mg PO Q12 [facility] Last Admin: 09/29/17 08:35 Dose: 12.5 mg Clonidine HCl (Catapres) 0.2 mg PO Q8 [facility] Docusate Sodium (Colace) 100 mg PO TID [facility] Last Admin: 09/29/17 08:36 Dose: 100 mg Famotidine (Pepcid) 20 mg PO DAILY [facility] Last Admin: 09/29/17 08:37 Dose: 20 mg Hydrochlorothiazide (Hydrodiuril) 25 mg PO DAILY [facility] Last Admin: 09/29/17 08:36 Dose: 25 mg Ibuprofen (Motrin Tab) 400 mg PO Q4 PRN PRN Reason: foot pain 1-10 Indomethacin (Indocin) 25 mg PO TID PRN PRN Reason: leg pain Last Admin: 09/21/17 08:12 Dose: 25 mg Insulin Detemir (Levemir) 15 units SC HS [facility] Insulin Human Regular (Humulin R) 0 units SC ACHS [facility] PRN Reason: Protocol Last Admin: 09/29/17 06:41 Dose: 2 units Losartan Potassium (Cozaar) 100 mg PO DAILY [facility] Last Admin: 09/29/17 08:36 Dose: 100 mg Nifedipine (Procardia Xl) 60 mg PO DAILY [facility] Last Admin: 09/29/17 08:35 Dose: 60 mg Ondansetron HCl (Zofran Odt) 4 mg PO Q8H PRN PRN Reason: Nausea/Vomiting Polyethylene Glycol (Miralax) 17 gm PO DAILY [facility] Last Admin: 09/29/17 08:37 Dose: Not Given Valproate Sodium (Depakene Oral Soln) 250 mg PO Q12 [facility] Last Admin: 09/29/17 08:35 Dose: 250 mg Warfarin Sodium (Coumadin) 4 mg PO QD5 [facility] PRN Reason: Protocol Stop: 09/29/17 17:01 - Labs Labs: 09/27/17 05:35 09/22/17 10:20 PT 29.7 Seconds (9.8-13.1) H 09/29/17 05:50 INR 2.6 (0.9-1.2) H 09/29/17 05:50 - Additional Findings Additional findings: Physical exam: Constitutional- cooperative, awake, alert Head- NCAT, PERRL Eye- PERRL, EOMI ENT- normal exam, MMM. Neck- normal inspection, supple, no JVD Respiratory- CTAB, no wheezes rales rhonchi Cardiovascular- RRR, +S1, +S2 no MRG GI/Abdominal- normal bowel sounds, soft, no mass, no hsm Skin- warm, dry Extremities Exam- normal capillary refill, normal inspection Neurological Exam- alert, awake, oriented Psych- normal mood, normal affect Assessment and Plan - Assessment and Plan (Free Text) Plan: 67 years old female with hx of HTN, CAD with stents, Multiple CVAs, admitted to the [facility] on 08/12/17 and discharged on 08/13/17 with right hand weakness and diagnosed with TIA. She was again admitted to the [facility] on 08/29/17 with Motor Aphasia, Right side weakness and diagnosed with acute infarct on left fronto-parietal region. 1. Acute CVA with right hemiplegia - Consult Dr [employer] - OT/PT - Speech therapy - ASA - Lipitor - Coumadin 4 mg po today- INR seems to be the most stable with this dosage (2.6 today, 2.5 yesterday) 2. Gout - Indocin PRN for pain- works well for her - Left foot pain resolved 3. HTN- still uncontrolled - Procardia XL 60 mg po daily - Cozaar 100 mg po daily -Clonidine increased to 0.2 mg po q8h from BID today - HCTZ 25 mg po daily - Coreg 12.5 mg po q 12 hours 4. DM II, still uncontrolled blood sugars - Levemir increased from 10 mg HS to 15 mg HS today - Regular insulin sliding scale according to accucheck - HbA1c 8.0 on 08/29/17 5. CAD with stent - ASA - Lipitor 6. Stress Ulcer Prophylaxis with Pepcid 7. DVT prophylaxis: Patient on Coumadin 8. Code Status: Full
--- NOTE | 2017-09-29 16:34 | CP.PCM.PN ---
Subjective - Date & Time of Evaluation Date of Evaluation: 09/29/17 Time of Evaluation: 16:33 - Subjective Subjective: Patient seen in the room in good spirits has some hand movement now, but minimal and little wrist movement. It is not yet functional continue current care Objective - Vital Signs/Intake and Output Vital Signs (last 24 hours): Temp Pulse Resp BP Pulse Ox 97.7 F 77 20 140/65 98 09/29/17 07:56 09/29/17 13:59 09/29/17 07:56 09/29/17 14:15 09/29/17 13:59 - Medications Medications: Current Medications Acetaminophen (Tylenol 325mg Tab) 650 mg PO Q4 PRN PRN Reason: Fever >100.4 F Acetaminophen (Tylenol 325mg Tab) 650 mg PO Q4 PRN PRN Reason: Pain scale 1-10. Last Admin: 09/12/17 23:46 Dose: 650 mg Albuterol/Ipratropium (Duoneb 3 Mg/0.5 Mg (3 Ml) Ud) 3 ml IH RQ6 PRN PRN Reason: Shortness of Breath Aspirin (Ecotrin) 81 mg PO DAILY [facility] Last Admin: 09/29/17 08:37 Dose: 81 mg Atorvastatin Calcium (Lipitor) 20 mg PO DIN [facility] Last Admin: 09/28/17 17:24 Dose: 20 mg Carvedilol (Coreg) 12.5 mg PO Q12 [facility] Last Admin: 09/29/17 08:35 Dose: 12.5 mg Clonidine HCl (Catapres) 0.2 mg PO Q8 [facility] Last Admin: 09/29/17 14:15 Dose: 0.2 mg Docusate Sodium (Colace) 100 mg PO TID [facility] Last Admin: 09/29/17 12:32 Dose: 100 mg Famotidine (Pepcid) 20 mg PO DAILY [facility] Last Admin: 09/29/17 08:37 Dose: 20 mg Hydrochlorothiazide (Hydrodiuril) 25 mg PO DAILY [facility] Last Admin: 09/29/17 08:36 Dose: 25 mg Ibuprofen (Motrin Tab) 400 mg PO Q4 PRN PRN Reason: foot pain 1-10 Indomethacin (Indocin) 25 mg PO TID PRN PRN Reason: leg pain Last Admin: 09/21/17 08:12 Dose: 25 mg Insulin Detemir (Levemir) 15 units SC HS [facility] Insulin Human Regular (Humulin R) 0 units SC ACHS [facility] PRN Reason: Protocol Last Admin: 09/29/17 12:31 Dose: 2 units Losartan Potassium (Cozaar) 100 mg PO DAILY [facility] Last Admin: 09/29/17 08:36 Dose: 100 mg Nifedipine (Procardia Xl) 60 mg PO DAILY [facility] Last Admin: 09/29/17 08:35 Dose: 60 mg Ondansetron HCl (Zofran Odt) 4 mg PO Q8H PRN PRN Reason: Nausea/Vomiting Polyethylene Glycol (Miralax) 17 gm PO DAILY [facility] Last Admin: 09/29/17 08:37 Dose: Not Given Valproate Sodium (Depakene Oral Soln) 250 mg PO Q12 [facility] Last Admin: 09/29/17 08:35 Dose: 250 mg Warfarin Sodium (Coumadin) 4 mg PO QD5 [facility] PRN Reason: Protocol Stop: 09/29/17 17:01 - Labs Labs: 09/27/17 05:35 09/22/17 10:20 PT 29.7 Seconds (9.8-13.1) H 09/29/17 05:50 INR 2.6 (0.9-1.2) H 09/29/17 05:50
[2017-09-29] MEDS: Insulin Detemir 100 Units/ml Inj SC SCH ×2 (21:57→21:59)
[2017-09-30 05:36] LABS: INR 2.5 (0.9-1.2); PROTHROMBIN TIME 28.5 Seconds (9.8-13.1)
[2017-09-30 06:41] LABS: HEMOGLOBIN 9.1 g/dL (12.0-16.0); MEAN CELL VOLUME 85.1 fl (81.0-99.0); MEAN CORPUSCULAR HEMOGLOBIN 27.5 pg (27.0-31.0); MEAN CORPUSCULAR HGB CONC 32.3 g/dL (33.0-37.0); RBC 3.32 Mil/uL (3.80-5.20); RED CELL DISTRIBUTION WIDTH 18.3 % (11.5-14.5); WHITE BLOOD COUNT 4.6 K/uL (4.8-10.8)
[2017-09-30] MEDS: Insulin Regular 100 units/ml SC SCH ×4 (06:47→21:40)
[2017-09-30] MEDS: Valproic Acid 250 mg/5 ml UD Cup PO SCH ×2 (08:57→21:35)
[2017-09-30] MEDS: POLYETHYLENE GLYCOL 3350 17 GM/Dose PACKET PO SCH (08:58)
[2017-09-30] MEDS: NIFEdipine 60 mg ER Tab PO SCH (08:58)
--- NOTE | 2017-09-30 12:52 | CP.PCM.PN ---
Subjective - Date & Time of Evaluation Date of Evaluation: 09/30/17 Time of Evaluation: 12:51 - Subjective Subjective: Ms. Robison was seen and examined at the bedside. She is alert, oriented with her speech more clearer. She remains with right facial droop, right upper and lower extremities weakness, upper extremity weaker than the lower extremity. She is able to move her upper extremity side to side. She has a bilateral lower extremities Gabriel stockings on her bilateral lower extremities. There was no untoward events overnight. Objective - Vital Signs/Intake and Output Vital Signs (last 24 hours): Temp Pulse Resp BP Pulse Ox 98.2 F 62 20 144/71 97 09/30/17 07:36 09/30/17 08:58 09/30/17 07:36 09/30/17 08:58 09/30/17 08:46 - Medications Medications: Current Medications Acetaminophen (Tylenol 325mg Tab) 650 mg PO Q4 PRN PRN Reason: Fever >100.4 F Acetaminophen (Tylenol 325mg Tab) 650 mg PO Q4 PRN PRN Reason: Pain scale 1-10. Last Admin: 09/12/17 23:46 Dose: 650 mg Albuterol/Ipratropium (Duoneb 3 Mg/0.5 Mg (3 Ml) Ud) 3 ml IH RQ6 PRN PRN Reason: Shortness of Breath Aspirin (Ecotrin) 81 mg PO DAILY [facility] Last Admin: 09/30/17 08:58 Dose: 81 mg Atorvastatin Calcium (Lipitor) 20 mg PO DIN [facility] Last Admin: 09/29/17 17:24 Dose: 20 mg Carvedilol (Coreg) 12.5 mg PO Q12 [facility] Last Admin: 09/30/17 08:55 Dose: 12.5 mg Clonidine HCl (Catapres) 0.2 mg PO Q8 [facility] Last Admin: 09/30/17 06:46 Dose: 0.2 mg Docusate Sodium (Colace) 100 mg PO TID [facility] Last Admin: 09/30/17 12:11 Dose: Not Given Famotidine (Pepcid) 20 mg PO DAILY [facility] Last Admin: 09/30/17 08:57 Dose: 20 mg Hydrochlorothiazide (Hydrodiuril) 25 mg PO DAILY [facility] Last Admin: 09/30/17 08:58 Dose: 25 mg Ibuprofen (Motrin Tab) 400 mg PO Q4 PRN PRN Reason: foot pain 1-10 Indomethacin (Indocin) 25 mg PO TID PRN PRN Reason: leg pain Last Admin: 09/21/17 08:12 Dose: 25 mg Insulin Detemir (Levemir) 15 units SC HS [facility] Last Admin: 09/29/17 21:59 Dose: 15 units Insulin Human Regular (Humulin R) 0 units SC [facility] PRN Reason: Protocol Last Admin: 09/30/17 12:04 Dose: Not Given Losartan Potassium (Cozaar) 100 mg PO DAILY [facility] Last Admin: 09/30/17 08:57 Dose: 100 mg Nifedipine (Procardia Xl) 60 mg PO DAILY [facility] Last Admin: 09/30/17 08:58 Dose: 60 mg Ondansetron HCl (Zofran Odt) 4 mg PO Q8H PRN PRN Reason: Nausea/Vomiting Polyethylene Glycol (Miralax) 17 gm PO DAILY [facility] Last Admin: 09/30/17 08:58 Dose: Not Given Valproate Sodium (Depakene Oral Soln) 250 mg PO Q12 [facility] Last Admin: 09/30/17 08:57 Dose: 250 mg Warfarin Sodium (Coumadin) 4 mg PO QD5 [facility] PRN Reason: Protocol Stop: 09/30/17 17:01 - Labs Labs: 09/30/17 05:30 09/22/17 10:20 PT 28.5 Seconds (9.8-13.1) H 09/30/17 04:25 INR 2.5 (0.9-1.2) H 09/30/17 04:25 - Constitutional Appears: No Acute Distress - Head Exam Head Exam: NORMAL INSPECTION - Neurological Exam Neurological Exam: Alert, Awake, Oriented x3 Neuro motor strength exam: Left Upper Extremity: 5, Right Upper Extremity: 2/1, Left Lower Extremity: 5, Right Lower Extremity: 3 Additional comments: Neurological unchanged from previous examination Assessment and Plan (1) Acute CVA (cerebrovascular accident) Assessment & Plan: Case discussed with Dr. Garcia, continue all current medical, physical, occupational, and speech therapies. Recommend blood pressure control and glycemic control. Status: Acute
[2017-09-30] MEDS: Insulin Detemir 100 Units/ml Inj SC SCH (21:38)
[2017-10-01] MEDS: Insulin Regular 100 units/ml SC SCH ×5 (07:00→21:38)
[2017-10-01 07:51] LABS: INR 2.2 (0.9-1.2); PROTHROMBIN TIME 24.2 Seconds (9.8-13.1)
[2017-10-01] MEDS: POLYETHYLENE GLYCOL 3350 17 GM/Dose PACKET PO SCH (08:51)
[2017-10-01] MEDS: Valproic Acid 250 mg/5 ml UD Cup PO SCH ×2 (08:52→21:38)
[2017-10-01] MEDS: NIFEdipine 60 mg ER Tab PO SCH (08:54)
--- NOTE | 2017-10-01 12:05 | CP.PCM.PN ---
Subjective - Date & Time of Evaluation Date of Evaluation: 10/01/17 Time of Evaluation: 12:02 - Subjective Subjective: Ms. Robison was seen and examined at the bedside. She is alert, oriented with her speech more clearer. She remains with right facial droop, right upper and lower extremities weakness, upper extremity weaker than the lower extremity. She is able to move her upper extremity side to side. She has a bilateral lower extremities Gabriel stockings on her bilateral lower extremities. There was no untoward events overnight. Objective - Vital Signs/Intake and Output Vital Signs (last 24 hours): Temp Pulse Resp BP Pulse Ox 97.3 F L 63 18 136/63 100 10/01/17 08:34 10/01/17 08:54 10/01/17 08:34 10/01/17 08:54 10/01/17 08:51 - Medications Medications: Current Medications Acetaminophen (Tylenol 325mg Tab) 650 mg PO Q4 PRN PRN Reason: Fever >100.4 F Acetaminophen (Tylenol 325mg Tab) 650 mg PO Q4 PRN PRN Reason: Pain scale 1-10. Last Admin: 09/12/17 23:46 Dose: 650 mg Albuterol/Ipratropium (Duoneb 3 Mg/0.5 Mg (3 Ml) Ud) 3 ml IH RQ6 PRN PRN Reason: Shortness of Breath Aspirin (Ecotrin) 81 mg PO DAILY [facility] Last Admin: 10/01/17 08:52 Dose: 81 mg Atorvastatin Calcium (Lipitor) 20 mg PO DIN [facility] Last Admin: 09/30/17 16:58 Dose: 20 mg Carvedilol (Coreg) 12.5 mg PO Q12 [facility] Last Admin: 10/01/17 08:51 Dose: 12.5 mg Clonidine HCl (Catapres) 0.2 mg PO Q8 [facility] Docusate Sodium (Colace) 100 mg PO TID [facility] Last Admin: 10/01/17 08:51 Dose: 100 mg Famotidine (Pepcid) 20 mg PO DAILY [facility] Last Admin: 10/01/17 08:53 Dose: 20 mg Hydrochlorothiazide (Hydrodiuril) 25 mg PO DAILY [facility] Last Admin: 10/01/17 08:52 Dose: 25 mg Ibuprofen (Motrin Tab) 400 mg PO Q4 PRN PRN Reason: foot pain 1-10 Indomethacin (Indocin) 25 mg PO TID PRN PRN Reason: leg pain Last Admin: 09/21/17 08:12 Dose: 25 mg Insulin Detemir (Levemir) 15 units SC HS [facility] Last Admin: 09/30/17 21:38 Dose: 15 units Insulin Human Regular (Humulin R) 0 units SC ACHS [facility] PRN Reason: Protocol Last Admin: 10/01/17 07:02 Dose: Not Given Losartan Potassium (Cozaar) 100 mg PO DAILY [facility] Last Admin: 10/01/17 08:52 Dose: 100 mg Nifedipine (Procardia Xl) 60 mg PO DAILY [facility] Last Admin: 10/01/17 08:54 Dose: 60 mg Ondansetron HCl (Zofran Odt) 4 mg PO Q8H PRN PRN Reason: Nausea/Vomiting Polyethylene Glycol (Miralax) 17 gm PO DAILY [facility] Last Admin: 10/01/17 08:51 Dose: Not Given Valproate Sodium (Depakene Oral Soln) 250 mg PO Q12 [facility] Last Admin: 10/01/17 08:52 Dose: 250 mg Warfarin Sodium (Coumadin) 4 mg PO QD5 [facility] PRN Reason: Protocol Stop: 10/01/17 17:01 - Labs Labs: 09/30/17 05:30 09/22/17 10:20 PT 24.2 Seconds (9.8-13.1) H 10/01/17 06:10 INR 2.2 (0.9-1.2) H 10/01/17 06:10 - Constitutional Appears: No Acute Distress - Head Exam Head Exam: NORMAL INSPECTION - Neurological Exam Neurological Exam: Alert, Awake, Oriented x3 Neuro motor strength exam: Left Upper Extremity: 5, Right Upper Extremity: 3, Left Lower Extremity: 5, Right Lower Extremity: 4 Additional comments: Neurological improved from previous examination. She is able to ambulate with minimal assistance. Assessment and Plan (1) Acute CVA (cerebrovascular accident) Assessment & Plan: Case discussed with Dr. Garcia, continue all current medical, physical, occupational, and speech therapies. Recommend to follow up with an outpatient neurologist at least 1 month after discharge. Status: Acute
--- NOTE | 2017-10-01 17:38 | CP.PCM.PN ---
Subjective - Date & Time of Evaluation Date of Evaluation: 10/01/17 Time of Evaluation: 17:38 - Subjective Subjective: Patient seen in the room doing well denies sob/cp set for d/c to [facility] 10/04/17 continue current care ambulating 150' with min A Objective - Vital Signs/Intake and Output Vital Signs (last 24 hours): Temp Pulse Resp BP Pulse Ox 97.3 F L 71 18 132/66 100 10/01/17 08:34 10/01/17 13:20 10/01/17 08:34 10/01/17 13:20 10/01/17 08:51 - Medications Medications: Current Medications Acetaminophen (Tylenol 325mg Tab) 650 mg PO Q4 PRN PRN Reason: Fever >100.4 F Acetaminophen (Tylenol 325mg Tab) 650 mg PO Q4 PRN PRN Reason: Pain scale 1-10. Last Admin: 09/12/17 23:46 Dose: 650 mg Albuterol/Ipratropium (Duoneb 3 Mg/0.5 Mg (3 Ml) Ud) 3 ml IH RQ6 PRN PRN Reason: Shortness of Breath Aspirin (Ecotrin) 81 mg PO DAILY [facility] Last Admin: 10/01/17 08:52 Dose: 81 mg Atorvastatin Calcium (Lipitor) 20 mg PO DIN [facility] Last Admin: 10/01/17 17:19 Dose: 20 mg Carvedilol (Coreg) 12.5 mg PO Q12 [facility] Last Admin: 10/01/17 08:51 Dose: 12.5 mg Clonidine HCl (Catapres) 0.2 mg PO Q8 [facility] Last Admin: 10/01/17 13:20 Dose: 0.2 mg Docusate Sodium (Colace) 100 mg PO TID [facility] Last Admin: 10/01/17 17:18 Dose: 100 mg Famotidine (Pepcid) 20 mg PO DAILY [facility] Last Admin: 10/01/17 08:53 Dose: 20 mg Hydrochlorothiazide (Hydrodiuril) 25 mg PO DAILY [facility] Last Admin: 10/01/17 08:52 Dose: 25 mg Ibuprofen (Motrin Tab) 400 mg PO Q4 PRN PRN Reason: foot pain 1-10 Indomethacin (Indocin) 25 mg PO TID PRN PRN Reason: leg pain Last Admin: 09/21/17 08:12 Dose: 25 mg Insulin Detemir (Levemir) 15 units SC HS [facility] Last Admin: 09/30/17 21:38 Dose: 15 units Insulin Human Regular (Humulin R) 0 units SC [facility] PRN Reason: Protocol Last Admin: 10/01/17 17:19 Dose: 3 units Losartan Potassium (Cozaar) 100 mg PO DAILY [facility] Last Admin: 10/01/17 08:52 Dose: 100 mg Nifedipine (Procardia Xl) 60 mg PO DAILY [facility] Last Admin: 10/01/17 08:54 Dose: 60 mg Ondansetron HCl (Zofran Odt) 4 mg PO Q8H PRN PRN Reason: Nausea/Vomiting Polyethylene Glycol (Miralax) 17 gm PO DAILY [facility] Last Admin: 10/01/17 08:51 Dose: Not Given Valproate Sodium (Depakene Oral Soln) 250 mg PO Q12 [facility] Last Admin: 10/01/17 08:52 Dose: 250 mg - Labs Labs: 09/30/17 05:30 09/22/17 10:20 PT 24.2 Seconds (9.8-13.1) H 10/01/17 06:10 INR 2.2 (0.9-1.2) H 10/01/17 06:10
--- NOTE | 2017-10-01 18:06 | CP.PCM.PN ---
Subjective - Date & Time of Evaluation Date of Evaluation: 10/01/17 Time of Evaluation: 10:00 - Subjective Subjective: Patient seen and examined. She states she is doing "very well". Participating well with her therapies. INR stabilizing. HTN much better. Objective - Vital Signs/Intake and Output Vital Signs (last 24 hours): Temp Pulse Resp BP Pulse Ox 97.3 F L 71 18 132/66 100 10/01/17 08:34 10/01/17 13:20 10/01/17 08:34 10/01/17 13:20 10/01/17 08:51 - Medications Medications: Current Medications Acetaminophen (Tylenol 325mg Tab) 650 mg PO Q4 PRN PRN Reason: Fever >100.4 F Acetaminophen (Tylenol 325mg Tab) 650 mg PO Q4 PRN PRN Reason: Pain scale 1-10. Last Admin: 09/12/17 23:46 Dose: 650 mg Albuterol/Ipratropium (Duoneb 3 Mg/0.5 Mg (3 Ml) Ud) 3 ml IH RQ6 PRN PRN Reason: Shortness of Breath Aspirin (Ecotrin) 81 mg PO DAILY [facility] Last Admin: 10/01/17 08:52 Dose: 81 mg Atorvastatin Calcium (Lipitor) 20 mg PO DIN [facility] Last Admin: 10/01/17 17:19 Dose: 20 mg Carvedilol (Coreg) 12.5 mg PO Q12 [facility] Last Admin: 10/01/17 08:51 Dose: 12.5 mg Clonidine HCl (Catapres) 0.2 mg PO Q8 [facility] Last Admin: 10/01/17 13:20 Dose: 0.2 mg Docusate Sodium (Colace) 100 mg PO TID [facility] Last Admin: 10/01/17 17:18 Dose: 100 mg Famotidine (Pepcid) 20 mg PO DAILY [facility] Last Admin: 10/01/17 08:53 Dose: 20 mg Hydrochlorothiazide (Hydrodiuril) 25 mg PO DAILY [facility] Last Admin: 10/01/17 08:52 Dose: 25 mg Ibuprofen (Motrin Tab) 400 mg PO Q4 PRN PRN Reason: foot pain 1-10 Indomethacin (Indocin) 25 mg PO TID PRN PRN Reason: leg pain Last Admin: 09/21/17 08:12 Dose: 25 mg Insulin Detemir (Levemir) 15 units SC [facility] Last Admin: 09/30/17 21:38 Dose: 15 units Insulin Human Regular (Humulin R) 0 units SC ACHS [facility] PRN Reason: Protocol Last Admin: 10/01/17 17:19 Dose: 3 units Losartan Potassium (Cozaar) 100 mg PO DAILY [facility] Last Admin: 10/01/17 08:52 Dose: 100 mg Nifedipine (Procardia Xl) 60 mg PO DAILY [facility] Last Admin: 10/01/17 08:54 Dose: 60 mg Ondansetron HCl (Zofran Odt) 4 mg PO Q8H PRN PRN Reason: Nausea/Vomiting Polyethylene Glycol (Miralax) 17 gm PO DAILY [facility] Last Admin: 10/01/17 08:51 Dose: Not Given Valproate Sodium (Depakene Oral Soln) 250 mg PO Q12 [facility] Last Admin: 10/01/17 08:52 Dose: 250 mg - Labs Labs: 09/30/17 05:30 09/22/17 10:20 PT 24.2 Seconds (9.8-13.1) H 10/01/17 06:10 INR 2.2 (0.9-1.2) H 10/01/17 06:10 - Additional Findings Additional findings: Physical exam: Constitutional- cooperative, awake, alert Head- NCAT, PERRL Eye- PERRL, EOMI ENT- normal exam, MMM. Neck- normal inspection, supple, no JVD Respiratory- CTAB, no wheezes rales rhonchi Cardiovascular- RRR, +S1, +S2 no MRG GI/Abdominal- normal bowel sounds, soft, no mass, no hsm Skin- warm, dry Extremities Exam- normal capillary refill, normal inspection Neurological Exam- alert, awake, oriented Psych- normal mood, normal affect Assessment and Plan - Assessment and Plan (Free Text) Plan: 67 years old female with hx of HTN, CAD with stents, Multiple CVAs, admitted to the [facility] on 08/12/17 and discharged on 08/13/17 with right hand weakness and diagnosed with TIA. She was again admitted to the [facility] on 08/29/17 with Motor Aphasia, Right side weakness and diagnosed with acute infarct on left fronto-parietal region. 1. Acute CVA with right hemiplegia - Consult Dr Connor Manager Of [employer] - OT/PT - Speech therapy - ASA - Lipitor - Coumadin 4 mg po today- INR seems to be the most stable with this dosage. Would continue with 4 mg po daily unless patient drops below INR of 2.0 2. Gout - Indocin PRN for pain- works well for her - Left foot pain resolved 3. HTN- still uncontrolled - Procardia XL 60 mg po daily - Cozaar 100 mg po daily -Clonidine increased to 0.2 mg po q8h from BID today - HCTZ 25 mg po daily - Coreg 12.5 mg po q 12 hours 4. DM II, still uncontrolled blood sugars - Levemir increased from 10 mg HS to 15 mg HS today - Regular insulin sliding scale according to accucheck - HbA1c 8.0 on 08/29/17 5. CAD with stent - ASA - Lipitor 6. Stress Ulcer Prophylaxis with Pepcid 7. DVT prophylaxis: Patient on Coumadin 8. Code Status: Full
[2017-10-01] MEDS: Insulin Detemir 100 Units/ml Inj SC SCH (21:39)
[2017-10-02] MEDS: Insulin Regular 100 units/ml SC SCH ×4 (06:32→21:29)
[2017-10-02] MEDS: NIFEdipine 60 mg ER Tab PO SCH (08:21)
[2017-10-02] MEDS: Valproic Acid 250 mg/5 ml UD Cup PO SCH ×2 (08:22→21:28)
[2017-10-02] MEDS: POLYETHYLENE GLYCOL 3350 17 GM/Dose PACKET PO SCH (08:23)
[2017-10-02 13:31] LABS: INR 2.6 (0.9-1.2); PROTHROMBIN TIME 29.1 Seconds (9.8-13.1)
[2017-10-02] MEDS: Insulin Detemir 100 Units/ml Inj SC SCH (21:29)
[2017-10-03] MEDS: Insulin Regular 100 units/ml SC SCH ×4 (06:29→21:27)
[2017-10-03] MEDS: NIFEdipine 60 mg ER Tab PO SCH (09:11)
[2017-10-03] MEDS: Valproic Acid 250 mg/5 ml UD Cup PO SCH ×2 (09:12→21:27)
[2017-10-03] MEDS: POLYETHYLENE GLYCOL 3350 17 GM/Dose PACKET PO SCH (09:13)
[2017-10-03] MEDS: Insulin Detemir 100 Units/ml Inj SC SCH (21:27)
[2017-10-04] MEDS: Insulin Regular 100 units/ml SC SCH ×4 (06:41→21:07)
[2017-10-04 06:43] LABS: INR 2.6 (0.9-1.2); PROTHROMBIN TIME 29.4 Seconds (9.8-13.1)
[2017-10-04] MEDS: NIFEdipine 60 mg ER Tab PO SCH (08:32)
[2017-10-04] MEDS: POLYETHYLENE GLYCOL 3350 17 GM/Dose PACKET PO SCH (08:34)
[2017-10-04] MEDS: Valproic Acid 250 mg/5 ml UD Cup PO SCH ×2 (08:34→21:07)
--- NOTE | 2017-10-04 11:52 | CP.PCM.PN ---
Subjective - Date & Time of Evaluation Date of Evaluation: 10/04/17 Time of Evaluation: 11:52 - Subjective Subjective: Ms. Robison was seen and examined during therapy time. She is alert, oriented with her speech more clearer. She remains with right facial droop, right upper and lower extremities weakness, upper extremity weaker than the lower extremity. She is able to move her upper extremity side to side. She has a bilateral lower extremities Gabriel stockings on her bilateral lower extremities. She is able to ambulate with steady gait with minimal assistance.There was no untoward events overnight. Objective - Vital Signs/Intake and Output Vital Signs (last 24 hours): Temp Pulse Resp BP Pulse Ox 97.7 F 61 18 145/74 100 10/04/17 08:08 10/04/17 08:33 10/04/17 08:08 10/04/17 08:33 10/04/17 08:08 - Medications Medications: Current Medications Acetaminophen (Tylenol 325mg Tab) 650 mg PO Q4 PRN PRN Reason: Fever >100.4 F Acetaminophen (Tylenol 325mg Tab) 650 mg PO Q4 PRN PRN Reason: Pain scale 1-10. Last Admin: 09/12/17 23:46 Dose: 650 mg Albuterol/Ipratropium (Duoneb 3 Mg/0.5 Mg (3 Ml) Ud) 3 ml IH RQ6 PRN PRN Reason: Shortness of Breath Aspirin (Ecotrin) 81 mg PO DAILY [facility] Last Admin: 10/04/17 08:33 Dose: 81 mg Atorvastatin Calcium (Lipitor) 20 mg PO DIN [facility] Last Admin: 10/03/17 17:32 Dose: 20 mg Carvedilol (Coreg) 12.5 mg PO Q12 [facility] Last Admin: 10/04/17 08:33 Dose: 12.5 mg Clonidine HCl (Catapres) 0.2 mg PO Q8 [facility] Last Admin: 10/04/17 05:31 Dose: 0.2 mg Docusate Sodium (Colace) 100 mg PO TID [facility] Last Admin: 10/04/17 08:32 Dose: 100 mg Famotidine (Pepcid) 20 mg PO DAILY [facility] Last Admin: 10/04/17 08:34 Dose: 20 mg Hydrochlorothiazide (Hydrodiuril) 25 mg PO DAILY [facility] Last Admin: 03/12/18 08:33 Dose: 25 mg Ibuprofen (Motrin Tab) 400 mg PO Q4 PRN PRN Reason: foot pain 1-10 Indomethacin (Indocin) 25 mg PO TID PRN PRN Reason: leg pain Last Admin: 09/21/17 08:12 Dose: 25 mg Insulin Detemir (Levemir) 15 units SC HS [facility] Last Admin: 10/03/17 21:27 Dose: 15 units Insulin Human Regular (Humulin R) 0 units SC ACHS [facility] PRN Reason: Protocol Last Admin: 10/04/17 06:41 Dose: Not Given Losartan Potassium (Cozaar) 100 mg PO DAILY [facility] Last Admin: 10/04/17 08:33 Dose: 100 mg Nifedipine (Procardia Xl) 60 mg PO DAILY [facility] Last Admin: 10/04/17 08:32 Dose: 60 mg Ondansetron HCl (Zofran Odt) 4 mg PO Q8H PRN PRN Reason: Nausea/Vomiting Polyethylene Glycol (Miralax) 17 gm PO DAILY [facility] Last Admin: 10/04/17 08:34 Dose: Not Given Valproate Sodium (Depakene Oral Soln) 250 mg PO Q12 [facility] Last Admin: 10/04/17 08:34 Dose: 250 mg - Labs Labs: 09/30/17 05:30 09/22/17 10:20 PT 29.4 Seconds (9.8-13.1) H 10/04/17 05:20 INR 2.6 (0.9-1.2) H 10/04/17 05:20 - Constitutional Appears: No Acute Distress - Head Exam Head Exam: NORMAL INSPECTION - Neurological Exam Neurological Exam: Alert, Awake, Oriented x3 Neuro motor strength exam: Left Upper Extremity: 5, Right Upper Extremity: 2/1, Left Lower Extremity: 5, Right Lower Extremity: 3 Additional comments: Neurological unchanged from previous examination. Assessment and Plan (1) Acute CVA (cerebrovascular accident) Assessment & Plan: Case discussed with Dr. Zhao, continue all current medical, physical, occupational, and speech therapies. Recommend to follow up with an outpatient neurologist at least 1 month after discharge with Dr. Zhao at [address] [place] [address] [address] [place] [id number] tel. [phone]. Status: Acute
--- NOTE | 2017-10-04 18:21 | CP.PCM.PN ---
Subjective - Date & Time of Evaluation Date of Evaluation: 10/04/17 Time of Evaluation: 18:19 - Subjective Subjective: Patient seen in the room doing very well Insurance has given her more time which is a great thing given her wonderful improvement and true effort she has put in day in and day out this may allow her to avoid a MICKY stay as well. speech continues to be more in depth doing stairs as well excellent, ideal acute rehab candidate Objective - Vital Signs/Intake and Output Vital Signs (last 24 hours): Temp Pulse Resp BP Pulse Ox 97.7 F 61 18 143/75 100 10/04/17 08:08 10/04/17 08:33 10/04/17 08:08 10/04/17 13:17 10/04/17 08:08 - Medications Medications: Current Medications Acetaminophen (Tylenol 325mg Tab) 650 mg PO Q4 PRN PRN Reason: Fever >100.4 F Acetaminophen (Tylenol 325mg Tab) 650 mg PO Q4 PRN PRN Reason: Pain scale 1-10. Last Admin: 09/12/17 23:46 Dose: 650 mg Albuterol/Ipratropium (Duoneb 3 Mg/0.5 Mg (3 Ml) Ud) 3 ml IH RQ6 PRN PRN Reason: Shortness of Breath Aspirin (Ecotrin) 81 mg PO DAILY [facility] Last Admin: 10/04/17 08:33 Dose: 81 mg Atorvastatin Calcium (Lipitor) 20 mg PO DIN [facility] Last Admin: 10/04/17 17:05 Dose: 20 mg Carvedilol (Coreg) 12.5 mg PO Q12 [facility] Last Admin: 10/04/17 08:33 Dose: 12.5 mg Clonidine HCl (Catapres) 0.2 mg PO Q8 [facility] Last Admin: 10/04/17 13:17 Dose: 0.2 mg Docusate Sodium (Colace) 100 mg PO TID [facility] Last Admin: 10/04/17 17:04 Dose: 100 mg Famotidine (Pepcid) 20 mg PO DAILY [facility] Last Admin: 10/04/17 08:34 Dose: 20 mg Hydrochlorothiazide (Hydrodiuril) 25 mg PO DAILY [facility] Last Admin: 10/04/17 08:33 Dose: 25 mg Ibuprofen (Motrin Tab) 400 mg PO Q4 PRN PRN Reason: foot pain 1-10 Indomethacin (Indocin) 25 mg PO TID PRN PRN Reason: leg pain Last Admin: 09/21/17 08:12 Dose: 25 mg Insulin Detemir (Levemir) 15 units SC HS [facility] Last Admin: 10/03/17 21:27 Dose: 15 units Insulin Human Regular (Humulin R) 0 units SC [facility] PRN Reason: Protocol Last Admin: 10/04/17 17:03 Dose: 2 units Losartan Potassium (Cozaar) 100 mg PO DAILY [facility] Last Admin: 10/04/17 08:33 Dose: 100 mg Nifedipine (Procardia Xl) 60 mg PO DAILY [facility] Last Admin: 10/04/17 08:32 Dose: 60 mg Ondansetron HCl (Zofran Odt) 4 mg PO Q8H PRN PRN Reason: Nausea/Vomiting Polyethylene Glycol (Miralax) 17 gm PO DAILY [facility] Last Admin: 10/04/17 08:34 Dose: Not Given Valproate Sodium (Depakene Oral Soln) 250 mg PO Q12 [facility] Last Admin: 10/04/17 08:34 Dose: 250 mg Warfarin Sodium (Coumadin) 4 mg PO QD5 [facility] PRN Reason: Protocol Stop: 10/06/17 17:01 Last Admin: 10/04/17 17:04 Dose: 4 mg - Labs Labs: 09/30/17 05:30 09/22/17 10:20 PT 29.4 Seconds (9.8-13.1) H 10/04/17 05:20 INR 2.6 (0.9-1.2) H 10/04/17 05:20
[2017-10-04] MEDS: Insulin Detemir 100 Units/ml Inj SC SCH (21:08)
[2017-10-05] MEDS: Insulin Regular 100 units/ml SC SCH ×4 (06:42→21:12)
[2017-10-05] MEDS: POLYETHYLENE GLYCOL 3350 17 GM/Dose PACKET PO SCH (08:21)
[2017-10-05] MEDS: NIFEdipine 60 mg ER Tab PO SCH (08:21)
[2017-10-05] MEDS: Valproic Acid 250 mg/5 ml UD Cup PO SCH ×2 (08:27→21:12)
--- NOTE | 2017-10-05 13:14 | PSY.TMCNF ---
Nursing - Vital Signs Vital Signs (Last 8 hours): Vital Signs 10/05/17 10/05/17 10/05/17 06:19 08:21 08:27 Temperature Pulse Rate 62 60 Respiratory Rate Blood Pressure 148/71 129/67 129/67 O2 Sat by Pulse Oximetry 10/05/17 10/05/17 10/05/17 08:28 08:33 09:00 Temperature 97.3 F L 97.3 F L Pulse Rate 58 L 58 L Respiratory 19 19 Rate Blood Pressure 129/67 126/67 126/67 O2 Sat by Pulse 98 Oximetry 10/05/17 11:00 Temperature Pulse Rate 61 Respiratory Rate Blood Pressure O2 Sat by Pulse 100 Oximetry Pain: 0 - Precautions: Precautions: Fall Prevention, Aspiration - Medications/Other Issues Comment: Pt is at moderate nutritonal risk. Goals: 1. Pt to consume 75-100% of meals( met, continue). 2. Blood glucoses to be between 70-180 mg/dl( partially met, continue). Follow-up assessment due by 10/05/2017. - Consults Comment: Dr. King, Dr. Connor, Dr. Zhao - Toileting Toileting: Dependent - Bladder Management Bladder Pattern: Normal, Incontinent Voiding Method: Toilet, Bedpan, Diaper Bladder Management: Dependent Frequency of Accidents: >5 - Bowel Management Bowel Pattern: Constipated Bowel Management: Maximal Assistance Frequency of Accidents: 0 - Transfers Transfers: Minimal Assistance - ADL's ADL's: Moderate Assistance - Pain Management Comments: Ibuprofen or Indocin PRN - Patient/Family Teaching Comments: N/A - Goals/Time Frame Comments: PER MULTIDISCIPLINARY CARE PLAN GOALS - Provider Provider: ALANNA RAMIREZN RN CRRN Physical Therapy - Bed Mobility Bed Mobility: Minimal Assistance - Transfers Wheelchair to Mat: Contact Guard Sit to Stand: Supervision, Contact Guard - Ambulation Level of Assistance: Verbal Cues, Contact Guard Distance (ft.): 150 Assistive Devices: N/A - Stair Negotiation Stairs: Level of Assistance: Verbal Cues, Minimal Assistance Number of Stairs: 12 Stairs: Assistive Devices: Left Handrail - Standing Balance Static Stand: Contact Guard Assist Dynamic Stand: Minimal Assistance - Pain Pain (assessed during therapy session): 0 - Insight/Carryover Insight/Carryover: Good - Patient/Family Education Comment: Initiated caregiver training with pts for transfers, ambulation , and stair negotiation. Discussed d/c recommendations with . Pt education provided for increased safety awareness and proper techniques during functional mobility training. - Assessment/Plan Assessment: Pt is making steady progress towards her rehab goals; pt currently requires min A for bed mobility, close S/CGA for transfers, min A for gait without AD, and min A for stair negotiation. Initiated caregiver training with pts and discussed recommendation of supervision at home and ideally a first floor set up. Pt will continue to benefit from skilled PT intervention to address deficits, reduce fall risk, and maximize functional independence. - Goals Timeframe: 10 days Goals: SIt < > supine with supervision. Functional transfers from various surfaces with supervision. Pt will ambulate 200 ft with supervision. Pt will ascend/descend flight of stairs with handrail and supervision - Provider Therapist: nicolas License Number: [id number] Occupational Therapy - Arousal/Attention/Orientation Patient Orientation: Person, Place - ADL/IADL Self Feeding: Independent, Set-up Help Grooming: Supervision, Verbal Cues, Set-up Help Bathing-Upper Extremity: Verbal Cues, Set-up Help, Minimal Assistance Bathing-Lower Extremity: Verbal Cues, Set-up Help, Minimal Assistance Dressing-Upper Extremity: Verbal Cues, Set-up Help, Minimal Assistance Dressing-Lower Extremity: Verbal Cues, Set-up Help, Minimal Assistance - Sitting Balance Static Sitting: Supervision Dynamic Sitting: Reaches across midline, Reaches out of base of support, Reaches within base of support, Contact Guard Assist Comment: unsupported seated - Transfers Wheelchair to Bed Transfers: Verbal Cues, Set-up Help, Contact Guard, Minimal Assistance Toilet Transfers: Verbal Cues, Set-up Help, Contact Guard, Minimal Assistance - Wheelchair Management Level of Assistance: Moderate Assistance Distance (ft.): 75 - Upper Extremity Status Right Upper Extremity Comment: PROM is WNLS, but Minimal/beginning active movement noted in R shoulder/elbow--gravity eliminated plane- Left Upper Extremity Comment: P/AROM is WFLS - Pain Pain (assessed during therapy session): 0 - Insight/Carryover Insight/Carryover: Good - Patient/Family Education Comment: Initiated caregiver training with pts for transfers, ambulation , and stair negotiation. Discussed d/c recommendations with . Pt education provided for increased safety awareness and proper techniques during functional mobility training. - Assessment/Plan Assessment: Pt is making steady progress towards her rehab goals; pt currently requires min A for bed mobility, close S/CGA for transfers, min A for gait without AD, and min A for stair negotiation. Initiated caregiver training with pts and discussed recommendation of supervision at home and ideally a first floor set up. Pt will continue to benefit from skilled PT intervention to address deficits, reduce fall risk, and maximize functional independence. - Goals Timeframe: 10 days Goals: SIt < > supine with supervision. Functional transfers from various surfaces with supervision. Pt will ambulate 200 ft with supervision. Pt will ascend/descend flight of stairs with handrail and supervision - Provider Therapist: Karly Fitzpatrick OTR/L License Number: [id number] Speech Therapy - Consult Information Patient on Program: Yes Medical Diagnosis: CVA Treatment Diagnosis: -mild-moderate receptive aphasia. -moderate expressive aphasia - Assessment Expressive Language Impairment: Moderate Receptive Language Impairment: Moderate Comment: mild-moderate receptive lang deficits - Plan Assessment: Pt is making steady progress towards her rehab goals; pt currently requires min A for bed mobility, close S/CGA for transfers, min A for gait without AD, and min A for stair negotiation. Initiated caregiver training with pts and discussed recommendation of supervision at home and ideally a first floor set up. Pt will continue to benefit from skilled PT intervention to address deficits, reduce fall risk, and maximize functional independence. - Provider Therapist: Vee Odell License Number: [id number] Recreational Therapy - Participation Participation: Participates in Individual and/or Group Sessions - Attendance Attendance: 3-5 times per week - Activities Leisure Activities: Cards and Games - Socialization Level of Socialization: Initiates/interacts freely with care givers and peer, Requires 1:1 guidance to respond - Diversional Time Diversional Time: likes cards, television - Assessment Assessment/Plan: Pt is making steady progress towards her rehab goals; pt currently requires min A for bed mobility, close S/CGA for transfers, min A for gait without AD, and min A for stair negotiation. Initiated caregiver training with pts and discussed recommendation of supervision at home and ideally a first floor set up. Pt will continue to benefit from skilled PT intervention to address deficits, reduce fall risk, and maximize functional independence. - Provider Therapist: Nicky Mtz, [facility] #[id number] Nutrition - Current Diet Current Diet/ Supplement/ Feedings: Advanced bite size, moderate consistent CHO diet with thin liquids - Appetite Percent Meal Consumed: 75-100% - Comments Comments: N/A - Assessment/Goals/Time Frame Assessment/Goals/Time Frame: Pt is at moderate nutritonal risk. Goals: 1. Pt to consume 75-100% of meals( met, continue). 2. Blood glucoses to be between 70-180 mg/dl(partially met, continue). Follow-up assessment due by 10/05/2017. - Provider Provider: Yuridia Gonzalez MS, RD Case Management - Psychosocial Assessment Support Systems: Pt lives with spouse. Matheus Riojas (spouse)- [phone] Psychological Interventions/Needs: Patient alert with mild-moderate receptive and moderate expressive aphasia Discharge Concerns: Patient currently requiring Mod/min overall for functional mobility. Patient/Family Meeting: CM met with patient and spoke with spouse with pt's consent as well as rehab team Intervention/Goal/Outcome:: 1. Plan: [facility] as patient demonstrates impairments in functional moblity, however continues to make progress in therapy- list of local [facility] provided to family. Family choosing [facility] ; Will send referral 2. Tentative discharge date: 10/03/2017. 4. continued stay auth, LAD: 09/30 Sent updates today - Discharge Plan Discharge Plan: Subacute care - Provider Provider: STEPHON Dickson, RN SANE License Number: [id number] Rehabilitation Plan - Treatment Plan Treatment Plan: Physical Therapy, Occupational Therapy, Speech, Dietary, Patient /Family Education - Discharge Plan Estimated Date of Discharge: 10/09/17 Discharge to: Home
--- NOTE | 2017-10-05 13:30 | CP.PCM.PN ---
Subjective - Date & Time of Evaluation Date of Evaluation: 10/05/17 Time of Evaluation: 13:29 - Subjective Subjective: Patient seen in the room doing well denies sob/cp continues to improve and her comprehension is noticeably improved as well continue current care Objective - Vital Signs/Intake and Output Vital Signs (last 24 hours): Temp Pulse Resp BP Pulse Ox 97.3 F L 61 19 126/67 100 10/05/17 09:00 10/05/17 11:00 10/05/17 09:00 10/05/17 09:00 10/05/17 11:00 - Medications Medications: Current Medications Acetaminophen (Tylenol 325mg Tab) 650 mg PO Q4 PRN PRN Reason: Fever >100.4 F Acetaminophen (Tylenol 325mg Tab) 650 mg PO Q4 PRN PRN Reason: Pain scale 1-10. Last Admin: 09/12/17 23:46 Dose: 650 mg Albuterol/Ipratropium (Duoneb 3 Mg/0.5 Mg (3 Ml) Ud) 3 ml IH RQ6 PRN PRN Reason: Shortness of Breath Aspirin (Ecotrin) 81 mg PO DAILY [facility] Last Admin: 10/05/17 08:28 Dose: 81 mg Atorvastatin Calcium (Lipitor) 20 mg PO DIN [facility] Last Admin: 10/04/17 17:05 Dose: 20 mg Carvedilol (Coreg) 12.5 mg PO Q12 [facility] Last Admin: 10/05/17 08:27 Dose: 12.5 mg Clonidine HCl (Catapres) 0.2 mg PO Q8 [facility] Last Admin: 10/05/17 06:19 Dose: 0.2 mg Docusate Sodium (Colace) 100 mg PO TID [facility] Last Admin: 10/05/17 12:26 Dose: 100 mg Famotidine (Pepcid) 20 mg PO DAILY [facility] Last Admin: 10/05/17 08:19 Dose: 20 mg Hydrochlorothiazide (Hydrodiuril) 25 mg PO DAILY [facility] Last Admin: 10/05/17 08:28 Dose: 25 mg Ibuprofen (Motrin Tab) 400 mg PO Q4 PRN PRN Reason: foot pain 1-10 Indomethacin (Indocin) 25 mg PO TID PRN PRN Reason: leg pain Last Admin: 09/21/17 08:12 Dose: 25 mg Insulin Detemir (Levemir) 15 units SC [facility] Last Admin: 10/04/17 21:08 Dose: 15 units Insulin Human Regular (Humulin R) 0 units SC ACHS [facility] PRN Reason: Protocol Last Admin: 10/05/17 12:26 Dose: 2 units Losartan Potassium (Cozaar) 100 mg PO DAILY [facility] Last Admin: 10/05/17 08:28 Dose: 100 mg Nifedipine (Procardia Xl) 60 mg PO DAILY [facility] Last Admin: 10/05/17 08:21 Dose: 60 mg Ondansetron HCl (Zofran Odt) 4 mg PO Q8H PRN PRN Reason: Nausea/Vomiting Polyethylene Glycol (Miralax) 17 gm PO DAILY [facility] Last Admin: 10/05/17 08:21 Dose: Not Given Valproate Sodium (Depakene Oral Soln) 250 mg PO Q12 [facility] Last Admin: 10/05/17 08:27 Dose: 250 mg Warfarin Sodium (Coumadin) 4 mg PO QD5 [facility] PRN Reason: Protocol Stop: 10/06/17 17:01 Last Admin: 10/04/17 17:04 Dose: 4 mg - Labs Labs: 09/30/17 05:30 09/22/17 10:20 PT 29.4 Seconds (9.8-13.1) H 10/04/17 05:20 INR 2.6 (0.9-1.2) H 10/04/17 05:20
[2017-10-05] MEDS: Insulin Detemir 100 Units/ml Inj SC SCH (21:13)
[2017-10-06] MEDS: Insulin Regular 100 units/ml SC SCH ×4 (07:19→21:19)
[2017-10-06] MEDS: NIFEdipine 60 mg ER Tab PO SCH (08:22)
[2017-10-06] MEDS: Valproic Acid 250 mg/5 ml UD Cup PO SCH ×2 (08:22→21:09)
[2017-10-06] MEDS: POLYETHYLENE GLYCOL 3350 17 GM/Dose PACKET PO SCH (08:28)
--- NOTE | 2017-10-06 10:58 | CP.PCM.PN ---
Subjective - Date & Time of Evaluation Date of Evaluation: 10/06/17 Time of Evaluation: 10:57 - Subjective Subjective: Ms. Robison was seen and examined during therapy time. She is alert, oriented with her speech more clearer. She remains with right facial droop, right upper and lower extremities weakness, upper extremity weaker than the lower extremity. She is able to move her upper extremity side to side. She has a bilateral lower extremities Gabriel stockings on her bilateral lower extremities. She is able to ambulate with steady gait with minimal assistance.There was no untoward events overnight. Objective - Vital Signs/Intake and Output Vital Signs (last 24 hours): Temp Pulse Resp BP Pulse Ox 97.3 F L 71 19 149/81 99 10/06/17 08:07 10/06/17 08:23 10/06/17 08:07 10/06/17 08:23 10/06/17 08:07 - Medications Medications: Current Medications Acetaminophen (Tylenol 325mg Tab) 650 mg PO Q4 PRN PRN Reason: Fever >100.4 F Acetaminophen (Tylenol 325mg Tab) 650 mg PO Q4 PRN PRN Reason: Pain scale 1-10. Last Admin: 09/12/17 23:46 Dose: 650 mg Albuterol/Ipratropium (Duoneb 3 Mg/0.5 Mg (3 Ml) Ud) 3 ml IH RQ6 PRN PRN Reason: Shortness of Breath Aspirin (Ecotrin) 81 mg PO DAILY [facility] Last Admin: 10/06/17 08:23 Dose: 81 mg Atorvastatin Calcium (Lipitor) 20 mg PO DIN [facility] Last Admin: 10/05/17 16:04 Dose: 20 mg Carvedilol (Coreg) 12.5 mg PO Q12 [facility] Last Admin: 10/06/17 08:23 Dose: 12.5 mg Clonidine HCl (Catapres) 0.2 mg PO Q8 [facility] Last Admin: 10/06/17 06:07 Dose: 0.2 mg Docusate Sodium (Colace) 100 mg PO TID [facility] Last Admin: 10/06/17 08:23 Dose: 100 mg Famotidine (Pepcid) 20 mg PO DAILY [facility] Last Admin: 10/06/17 08:25 Dose: 20 mg Hydrochlorothiazide (Hydrodiuril) 25 mg PO DAILY [facility] Last Admin: 10/06/17 08:23 Dose: 25 mg Ibuprofen (Motrin Tab) 400 mg PO Q4 PRN PRN Reason: foot pain 1-10 Indomethacin (Indocin) 25 mg PO TID PRN PRN Reason: leg pain Last Admin: 09/21/17 08:12 Dose: 25 mg Insulin Detemir (Levemir) 15 units SC HS [facility] Last Admin: 10/05/17 21:13 Dose: 15 units Insulin Human Regular (Humulin R) 0 units SC ACHS [facility] PRN Reason: Protocol Last Admin: 10/06/17 07:19 Dose: 3 units Losartan Potassium (Cozaar) 100 mg PO DAILY [facility] Last Admin: 10/06/17 08:23 Dose: 100 mg Nifedipine (Procardia Xl) 60 mg PO DAILY [facility] Last Admin: 10/06/17 08:22 Dose: 60 mg Ondansetron HCl (Zofran Odt) 4 mg PO Q8H PRN PRN Reason: Nausea/Vomiting Polyethylene Glycol (Miralax) 17 gm PO DAILY [facility] Last Admin: 10/06/17 08:28 Dose: Not Given Valproate Sodium (Depakene Oral Soln) 250 mg PO Q12 [facility] Last Admin: 10/06/17 08:22 Dose: 250 mg - Labs Labs: 09/30/17 05:30 09/22/17 10:20 PT 29.4 Seconds (9.8-13.1) H 10/04/17 05:20 INR 2.6 (0.9-1.2) H 10/04/17 05:20 - Constitutional Appears: No Acute Distress - Head Exam Head Exam: NORMAL INSPECTION - Neurological Exam Neurological Exam: Alert, Awake Neuro motor strength exam: Left Upper Extremity: 5, Right Upper Extremity: 3, Left Lower Extremity: 5, Right Lower Extremity: 4 Additional comments: Neurological unchanged from previous examination. Assessment and Plan (1) Acute CVA (cerebrovascular accident) Assessment & Plan: Case discussed with Dr. Zhao, continue all current medical, physical, occupational, and speech therapies. Recommend to follow up with an outpatient neurologist at least 1 month after discharge with Dr. Zhao at [address] [place] [address] [address] [place] [id number] tel. [phone]. Status: Acute
--- NOTE | 2017-10-06 16:04 | CP.PCM.PN ---
Subjective - Date & Time of Evaluation Date of Evaluation: 10/06/17 Time of Evaluation: 15:30 - Subjective Subjective: Patient seen and examined. Admitted feeling better. Claimed she has better control of her bowel and bladder. Objective - Vital Signs/Intake and Output Vital Signs (last 24 hours): Temp Pulse Resp BP Pulse Ox 97.3 F L 70 19 133/59 L 99 10/06/17 08:07 10/06/17 13:08 10/06/17 08:07 10/06/17 13:08 10/06/17 08:07 - Medications Medications: Current Medications Acetaminophen (Tylenol 325mg Tab) 650 mg PO Q4 PRN PRN Reason: Fever >100.4 F Acetaminophen (Tylenol 325mg Tab) 650 mg PO Q4 PRN PRN Reason: Pain scale 1-10. Last Admin: 09/12/17 23:46 Dose: 650 mg Albuterol/Ipratropium (Duoneb 3 Mg/0.5 Mg (3 Ml) Ud) 3 ml IH RQ6 PRN PRN Reason: Shortness of Breath Aspirin (Ecotrin) 81 mg PO DAILY [facility] Last Admin: 10/06/17 08:23 Dose: 81 mg Atorvastatin Calcium (Lipitor) 20 mg PO DIN [facility] Last Admin: 10/05/17 16:04 Dose: 20 mg Carvedilol (Coreg) 12.5 mg PO Q12 [facility] Last Admin: 10/06/17 08:23 Dose: 12.5 mg Clonidine HCl (Catapres) 0.2 mg PO Q8 [facility] Last Admin: 10/06/17 13:08 Dose: 0.2 mg Docusate Sodium (Colace) 100 mg PO TID [facility] Last Admin: 10/06/17 13:07 Dose: 100 mg Famotidine (Pepcid) 20 mg PO DAILY [facility] Last Admin: 10/06/17 08:25 Dose: 20 mg Hydrochlorothiazide (Hydrodiuril) 25 mg PO DAILY [facility] Last Admin: 10/06/17 08:23 Dose: 25 mg Ibuprofen (Motrin Tab) 400 mg PO Q4 PRN PRN Reason: foot pain 1-10 Indomethacin (Indocin) 25 mg PO TID PRN PRN Reason: leg pain Last Admin: 09/21/17 08:12 Dose: 25 mg Insulin Detemir (Levemir) 15 units SC HS [facility] Last Admin: 10/05/17 21:13 Dose: 15 units Insulin Human Regular (Humulin R) 0 units SC ACHS [facility] PRN Reason: Protocol Last Admin: 10/06/17 12:08 Dose: Not Given Losartan Potassium (Cozaar) 100 mg PO DAILY [facility] Last Admin: 10/06/17 08:23 Dose: 100 mg Nifedipine (Procardia Xl) 60 mg PO DAILY [facility] Last Admin: 10/06/17 08:22 Dose: 60 mg Ondansetron HCl (Zofran Odt) 4 mg PO Q8H PRN PRN Reason: Nausea/Vomiting Polyethylene Glycol (Miralax) 17 gm PO DAILY [facility] Last Admin: 10/06/17 08:28 Dose: Not Given Valproate Sodium (Depakene Oral Soln) 250 mg PO Q12 [facility] Last Admin: 10/06/17 08:22 Dose: 250 mg - Labs Labs: 09/30/17 05:30 09/22/17 10:20 PT 29.4 Seconds (9.8-13.1) H 10/04/17 05:20 INR 2.6 (0.9-1.2) H 10/04/17 05:20 - Constitutional Appears: No Acute Distress - Head Exam Head Exam: ATRAUMATIC - Eye Exam Eye Exam: absent: Scleral icterus - ENT Exam ENT Exam: Mucous Membranes Moist - Neck Exam Neck Exam: absent: Meningismus - Respiratory Exam Respiratory Exam: absent: Rales, Rhonchi, Wheezes, Respiratory Distress - Cardiovascular Exam Cardiovascular Exam: REGULAR RHYTHM, +S1, +S2 - GI/Abdominal Exam GI & Abdominal Exam: Soft. absent: Tenderness - Rectal Exam Rectal Exam: Deferred - Neurological Exam Neurological Exam: Alert, Oriented x3 - Psychiatric Exam Psychiatric exam: Normal Affect - Skin Skin Exam: Dry, Intact Assessment and Plan - Assessment and Plan (Free Text) Assessment: 67 yo female with history of CAD, HTN and multiple CVA was admitted at [facility] on 08/29/2017 because of right sided weakness and aphasia. CT scan showed acute infarct on left fronto-parietal region. 1. Acute CVA patient remained with right facial droop and right sided weakness but claimed feeling improvement physiatry consult with Dr eGeta Zhao on neuro consult continue PT/OT/ST continue ASA, Lipitor and Coumadin Coumadin 4mg PO today 2. Gout Indocin prn 3. HTN BP controlled continue Coreg, Clonidine, Losartan and Nifedipine plus HCTZ 4. DM2 BS relatively controlled Levemir 15 units SC HS 5. CAD continue statin, ASA, BB 6. DVT prophylaxis patient on Coumadin
[2017-10-06 19:45] VITALS: RESP 20
[2017-10-06] MEDS: Insulin Detemir 100 Units/ml Inj SC SCH (21:16)
[2017-10-07 07:32] LABS: INR 2.2 (0.9-1.2); PROTHROMBIN TIME 25.1 Seconds (9.8-13.1)
[2017-10-07] MEDS: Insulin Regular 100 units/ml SC SCH ×4 (08:07→21:40)
[2017-10-07] MEDS: Valproic Acid 250 mg/5 ml UD Cup PO SCH ×2 (08:25→21:38)
[2017-10-07] MEDS: POLYETHYLENE GLYCOL 3350 17 GM/Dose PACKET PO SCH (08:26)
[2017-10-07] MEDS: NIFEdipine 60 mg ER Tab PO SCH (08:26)
--- NOTE | 2017-10-07 10:51 | CP.PCM.PN ---
Subjective - Date & Time of Evaluation Date of Evaluation: 10/07/17 Time of Evaluation: 10:51 - Subjective Subjective: Ms. Robison was seen and examined during therapy time. She is alert, oriented with her speech more clearer. She remains with right facial droop, right upper and lower extremities weakness, upper extremity weaker than the lower extremity. She is able to move her upper extremity side to side. She has a bilateral lower extremities Gabriel stockings on her bilateral lower extremities. She is able to ambulate with steady gait with minimal assistance.There was no untoward events overnight. Objective - Vital Signs/Intake and Output Vital Signs (last 24 hours): Temp Pulse Resp BP Pulse Ox 96.9 F L 74 20 165/79 H 100 10/07/17 08:00 10/07/17 08:26 10/07/17 08:00 10/07/17 08:26 10/07/17 08:00 - Medications Medications: Current Medications Acetaminophen (Tylenol 325mg Tab) 650 mg PO Q4 PRN PRN Reason: Fever >100.4 F Acetaminophen (Tylenol 325mg Tab) 650 mg PO Q4 PRN PRN Reason: Pain scale 1-10. Last Admin: 09/12/17 23:46 Dose: 650 mg Albuterol/Ipratropium (Duoneb 3 Mg/0.5 Mg (3 Ml) Ud) 3 ml IH RQ6 PRN PRN Reason: Shortness of Breath Aspirin (Ecotrin) 81 mg PO DAILY [facility] Last Admin: 10/07/17 08:27 Dose: 81 mg Atorvastatin Calcium (Lipitor) 20 mg PO DIN [facility] Last Admin: 10/06/17 16:51 Dose: 20 mg Carvedilol (Coreg) 12.5 mg PO Q12 [facility] Last Admin: 10/07/17 08:25 Dose: 12.5 mg Clonidine HCl (Catapres) 0.2 mg PO Q8 [facility] Last Admin: 10/07/17 07:05 Dose: 0.2 mg Docusate Sodium (Colace) 100 mg PO TID [facility] Last Admin: 10/07/17 08:25 Dose: 100 mg Famotidine (Pepcid) 20 mg PO DAILY [facility] Last Admin: 10/07/17 08:26 Dose: 20 mg Hydrochlorothiazide (Hydrodiuril) 25 mg PO DAILY [facility] Last Admin: 10/07/17 08:26 Dose: 25 mg Ibuprofen (Motrin Tab) 400 mg PO Q4 PRN PRN Reason: foot pain 1-10 Indomethacin (Indocin) 25 mg PO TID PRN PRN Reason: leg pain Last Admin: 09/21/17 08:12 Dose: 25 mg Insulin Detemir (Levemir) 15 units SC HS [facility] Last Admin: 10/06/17 21:16 Dose: 15 units Insulin Human Regular (Humulin R) 0 units SC ACHS [facility] PRN Reason: Protocol Last Admin: 10/07/17 08:07 Dose: Not Given Losartan Potassium (Cozaar) 100 mg PO DAILY [facility] Last Admin: 10/07/17 08:25 Dose: 100 mg Nifedipine (Procardia Xl) 60 mg PO DAILY [facility] Last Admin: 10/07/17 08:26 Dose: 60 mg Ondansetron HCl (Zofran Odt) 4 mg PO Q8H PRN PRN Reason: Nausea/Vomiting Polyethylene Glycol (Miralax) 17 gm PO DAILY [facility] Last Admin: 10/07/17 08:26 Dose: Not Given Valproate Sodium (Depakene Oral Soln) 250 mg PO Q12 [facility] Last Admin: 10/07/17 08:25 Dose: 250 mg Warfarin Sodium (Coumadin) 4 mg PO QD5 [facility] PRN Reason: Protocol Stop: 10/09/17 17:01 - Labs Labs: 09/30/17 05:30 18 10:20 PT 25.1 Seconds (9.8-13.1) H 10/07/17 05:20 INR 2.2 (0.9-1.2) H 10/07/17 05:20 - Constitutional Appears: No Acute Distress - Head Exam Head Exam: NORMAL INSPECTION - Neurological Exam Neurological Exam: Alert, Awake, Oriented x3 Neuro motor strength exam: Left Upper Extremity: 5, Right Upper Extremity: 3, Left Lower Extremity: 5, Right Lower Extremity: 4 Additional comments: Neurological unchanged from previous examination. Assessment and Plan (1) Acute CVA (cerebrovascular accident) Assessment & Plan: Case discussed with Dr. Garcia, continue all current medical, physical, occupational, and speech therapies. Recommend to follow up with an outpatient neurologist at least 1 month after discharge with Dr. Zhao at [address] [place] [address] [place], [place] [id number] tel. [phone]. Status: Acute
[2017-10-07] MEDS: Insulin Detemir 100 Units/ml Inj SC SCH (21:39)
[2017-10-08] MEDS: Insulin Regular 100 units/ml SC SCH ×4 (06:53→21:42)
[2017-10-08 08:15] LABS: HEMOGLOBIN 10.6 g/dL (12.0-16.0); MEAN CELL VOLUME 84.4 fl (81.0-99.0); MEAN CORPUSCULAR HEMOGLOBIN 26.9 pg (27.0-31.0); MEAN CORPUSCULAR HGB CONC 31.9 g/dL (33.0-37.0); RBC 3.94 Mil/uL (3.80-5.20); RED CELL DISTRIBUTION WIDTH 16.9 % (11.5-14.5); WHITE BLOOD COUNT 4.8 K/uL (4.8-10.8)
[2017-10-08] MEDS: NIFEdipine 60 mg ER Tab PO SCH (08:30)
[2017-10-08] MEDS: POLYETHYLENE GLYCOL 3350 17 GM/Dose PACKET PO SCH (08:30)
[2017-10-08] MEDS: Valproic Acid 250 mg/5 ml UD Cup PO SCH ×2 (08:34→21:21)
--- NOTE | 2017-10-08 10:51 | CP.PCM.PN ---
Subjective - Date & Time of Evaluation Date of Evaluation: 10/08/17 Time of Evaluation: 10:51 - Subjective Subjective: Ms. Robison was seen and examined during therapy time. She is alert, oriented with her speech more clearer. She remains with right facial droop, right upper and lower extremities weakness, upper extremity weaker than the lower extremity. She is able to move her upper extremity side to side. She has a bilateral lower extremities Gabriel stockings on her bilateral lower extremities. She is able to ambulate with steady gait with minimal assistance.There was no untoward events overnight. Objective - Vital Signs/Intake and Output Vital Signs (last 24 hours): Temp Pulse Resp BP Pulse Ox 97.3 F L 65 20 153/71 H 98 10/08/17 08:23 10/08/17 08:35 10/08/17 08:23 10/08/17 08:35 10/08/17 08:23 - Medications Medications: Current Medications Acetaminophen (Tylenol 325mg Tab) 650 mg PO Q4 PRN PRN Reason: Fever >100.4 F Acetaminophen (Tylenol 325mg Tab) 650 mg PO Q4 PRN PRN Reason: Pain scale 1-10. Last Admin: 09/12/17 23:46 Dose: 650 mg Albuterol/Ipratropium (Duoneb 3 Mg/0.5 Mg (3 Ml) Ud) 3 ml IH RQ6 PRN PRN Reason: Shortness of Breath Aspirin (Ecotrin) 81 mg PO DAILY [facility] Last Admin: 10/08/17 08:29 Dose: 81 mg Atorvastatin Calcium (Lipitor) 20 mg PO DIN [facility] Last Admin: 10/07/17 17:08 Dose: 20 mg Carvedilol (Coreg) 12.5 mg PO Q12 [facility] Last Admin: 10/08/17 08:35 Dose: 12.5 mg Clonidine HCl (Catapres) 0.2 mg PO Q8 [facility] Last Admin: 10/08/17 06:51 Dose: 0.2 mg Docusate Sodium (Colace) 100 mg PO TID [facility] Last Admin: 10/08/17 08:29 Dose: 100 mg Famotidine (Pepcid) 20 mg PO DAILY [facility] Last Admin: 10/08/17 08:30 Dose: 20 mg Hydrochlorothiazide (Hydrodiuril) 25 mg PO DAILY [facility] Last Admin: 10/08/17 08:30 Dose: 25 mg Ibuprofen (Motrin Tab) 400 mg PO Q4 PRN PRN Reason: foot pain 1-10 Indomethacin (Indocin) 25 mg PO TID PRN PRN Reason: leg pain Last Admin: 09/21/17 08:12 Dose: 25 mg Insulin Detemir (Levemir) 15 units SC HS [facility] Last Admin: 10/07/17 21:39 Dose: 15 units Insulin Human Regular (Humulin R) 0 units SC [facility] PRN Reason: Protocol Last Admin: 10/08/17 06:53 Dose: 1 units Losartan Potassium (Cozaar) 100 mg PO DAILY [facility] Last Admin: 10/08/17 08:34 Dose: 100 mg Nifedipine (Procardia Xl) 60 mg PO DAILY [facility] Last Admin: 10/08/17 08:30 Dose: 60 mg Ondansetron HCl (Zofran Odt) 4 mg PO Q8H PRN PRN Reason: Nausea/Vomiting Polyethylene Glycol (Miralax) 17 gm PO DAILY [facility] Last Admin: 10/08/17 08:30 Dose: 17 gm Valproate Sodium (Depakene Oral Soln) 250 mg PO Q12 [facility] Last Admin: 10/08/17 08:34 Dose: 250 mg Warfarin Sodium (Coumadin) 4 mg PO QD5 [facility] PRN Reason: Protocol Stop: 10/09/17 17:01 Last Admin: 10/07/17 17:08 Dose: 4 mg - Labs Labs: 10/08/17 08:07 09/22/17 10:20 PT 25.1 Seconds (9.8-13.1) H 10/07/17 05:20 INR 2.2 (0.9-1.2) H 10/07/17 05:20 - Constitutional Appears: No Acute Distress - Head Exam Head Exam: NORMAL INSPECTION - Neurological Exam Neurological Exam: Alert, Awake, Oriented x3 Neuro motor strength exam: Left Upper Extremity: 5, Right Upper Extremity: 3, Left Lower Extremity: 5, Right Lower Extremity: 3 Additional comments: Neurological unchanged from previous examination. Assessment and Plan (1) Acute CVA (cerebrovascular accident) Assessment & Plan: Case discussed with Dr. Garcia, continue all current medical, physical, occupational, and speech therapies. Recommend to follow up with an outpatient neurologist with Dr. Zhao at least 1 month after discharge located at [address] [place] [id number] tel. [phone]. Status: Acute
--- NOTE | 2017-10-08 17:51 | CP.PCM.PN ---
Subjective - Date & Time of Evaluation Date of Evaluation: 10/08/17 Time of Evaluation: 17:50 - Subjective Subjective: Patient seen and doing well set for d/c to [facility] tomorrow still wants to go home but appears to be amenable and understands no pain excellent patient here Objective - Vital Signs/Intake and Output Vital Signs (last 24 hours): Temp Pulse Resp BP Pulse Ox 97.3 F L 78 20 140/80 98 10/08/17 08:23 10/08/17 14:00 10/08/17 08:23 10/08/17 14:00 10/08/17 08:23 - Medications Medications: Current Medications Acetaminophen (Tylenol 325mg Tab) 650 mg PO Q4 PRN PRN Reason: Fever >100.4 F Acetaminophen (Tylenol 325mg Tab) 650 mg PO Q4 PRN PRN Reason: Pain scale 1-10. Last Admin: 09/12/17 23:46 Dose: 650 mg Albuterol/Ipratropium (Duoneb 3 Mg/0.5 Mg (3 Ml) Ud) 3 ml IH RQ6 PRN PRN Reason: Shortness of Breath Aspirin (Ecotrin) 81 mg PO DAILY [facility] Last Admin: 10/08/17 08:29 Dose: 81 mg Atorvastatin Calcium (Lipitor) 20 mg PO DIN [facility] Last Admin: 10/08/17 17:03 Dose: 20 mg Carvedilol (Coreg) 12.5 mg PO Q12 [facility] Last Admin: 10/08/17 08:35 Dose: 12.5 mg Clonidine HCl (Catapres) 0.2 mg PO Q8 [facility] Last Admin: 10/08/17 14:00 Dose: 0.2 mg Docusate Sodium (Colace) 100 mg PO TID [facility] Last Admin: 10/08/17 17:02 Dose: 100 mg Famotidine (Pepcid) 20 mg PO DAILY [facility] Last Admin: 10/08/17 08:30 Dose: 20 mg Hydrochlorothiazide (Hydrodiuril) 25 mg PO DAILY [facility] Last Admin: 10/08/17 08:30 Dose: 25 mg Ibuprofen (Motrin Tab) 400 mg PO Q4 PRN PRN Reason: foot pain 1-10 Indomethacin (Indocin) 25 mg PO TID PRN PRN Reason: leg pain Last Admin: 09/21/17 08:12 Dose: 25 mg Insulin Detemir (Levemir) 15 units SC HS [facility] Last Admin: 10/07/17 21:39 Dose: 15 units Insulin Human Regular (Humulin R) 0 units SC [facility] PRN Reason: Protocol Last Admin: 10/08/17 17:03 Dose: 2 units Losartan Potassium (Cozaar) 100 mg PO DAILY [facility] Last Admin: 10/08/17 08:34 Dose: 100 mg Nifedipine (Procardia Xl) 60 mg PO DAILY [facility] Last Admin: 10/08/17 08:30 Dose: 60 mg Ondansetron HCl (Zofran Odt) 4 mg PO Q8H PRN PRN Reason: Nausea/Vomiting Polyethylene Glycol (Miralax) 17 gm PO DAILY [facility] Last Admin: 10/08/17 08:30 Dose: 17 gm Valproate Sodium (Depakene Oral Soln) 250 mg PO Q12 [facility] Last Admin: 10/08/17 08:34 Dose: 250 mg - Labs Labs: 10/08/17 08:07 09/22/17 10:20 PT 25.1 Seconds (9.8-13.1) H 10/07/17 05:20 INR 2.2 (0.9-1.2) H 10/07/17 05:20
[2017-10-08] MEDS: Insulin Detemir 100 Units/ml Inj SC SCH (21:41)
[2017-10-09] MEDS: Insulin Regular 100 units/ml SC SCH ×2 (07:11→11:30)
[2017-10-09] MEDS: Valproic Acid 250 mg/5 ml UD Cup PO SCH (07:59)
[2017-10-09] MEDS: POLYETHYLENE GLYCOL 3350 17 GM/Dose PACKET PO SCH (08:00)
[2017-10-09] MEDS: NIFEdipine 60 mg ER Tab PO SCH (08:01)
[2017-10-09 08:40] VITALS: TEMP 96.6; O2SAT 100
[2017-10-09 10:00] VITALS: BP 140/80; PULSE 78
--- NOTE | 2017-10-09 12:03 | CP.PCM.DIS ---
Provider - Provider Date of Admission: 09/09/17 21:00 Attending physician: Fuad Sainz Primary care physician: Po De Santiago DO Time Spent in preparation of Discharge (in minutes): 45 Diagnosis - Discharge Diagnosis (1) Acute CVA (cerebrovascular accident) Status: Acute Priority: High (2) New onset a-fib Status: Acute (3) Status post placement of cardiac pacemaker Status: Acute Priority: High (4) TIA (transient ischemic attack) Status: Acute Priority: High (5) CAD (coronary artery disease) Status: Chronic Priority: Medium (6) CHF (congestive heart failure) Status: Chronic Priority: Medium Hospital Course - Lab Results Lab Results: Most Recent Lab Values WBC 4.8 K/uL (4.8-10.8) 10/08/17 08:07 RBC 3.94 Mil/uL (3.80-5.20) 10/08/17 08:07 Hgb 10.6 g/dL (12.0-16.0) L 10/08/17 08:07 Hct 33.3 % (34.0-47.0) L 10/08/17 08:07 MCV 84.4 fl (81.0-99.0) 10/08/17 08:07 MCH 26.9 pg (27.0-31.0) L 10/08/17 08:07 MCHC 31.9 g/dL (33.0-37.0) L 10/08/17 08:07 RDW 16.9 % (11.5-14.5) H 10/08/17 08:07 Plt Count 171 K/uL (130-400) 10/08/17 08:07 PT 25.1 Seconds (9.8-13.1) H 10/07/17 05:20 INR 2.2 (0.9-1.2) H 10/07/17 05:20 Sodium 144 mmol/l (132-148) 09/22/17 10:20 Potassium 4.3 MMOL/L (3.6-5.0) 09/22/17 10:20 Chloride 107 mmol/L (98-107) 09/22/17 10:20 Carbon Dioxide 27 mmol/L (22-30) 09/22/17 10:20 Anion Gap 14 (10-20) 09/22/17 10:20 BUN 22 mg/dl (7-17) H 09/22/17 10:20 Creatinine 1.0 mg/dl (0.7-1.2) 09/22/17 10:20 Est GFR ( Amer) > 60 09/22/17 10:20 Est GFR (Non-Af Amer) 55 09/22/17 10:20 POC Glucose (mg/dL) 170 mg/dL (65-110) H 10/09/17 05:06 Random Glucose 163 mg/dL (65-105) H 09/22/17 10:20 Uric Acid 5.9 mg/Dl (2.2-7.5) 09/11/17 05:30 Calcium 8.6 mg/dL (8.4-10.2) 09/22/17 10:20 Total Bilirubin 0.3 mg/dl (0.2-1.3) 09/10/17 06:45 AST 18 U/L (14-36) 09/10/17 06:45 ALT 30 U/L (9-52) 09/10/17 06:45 Alkaline Phosphatase 58 U/L (38-126) 09/10/17 06:45 Total Protein 6.3 G/DL (6.3-8.2) 09/10/17 06:45 Albumin 2.8 g/dL (3.5-5.0) L 09/10/17 06:45 Globulin 3.5 gm/dL (2.2-3.9) 09/10/17 06:45 Albumin/Globulin Ratio 0.8 (1.0-2.1) L 09/10/17 06:45 - Hospital Course Hospital Course: 67 yo female with history of CAD, HTN and multiple CVA was admitted at [facility] on 08/29/2017 because of right sided weakness and aphasia. CT scan showed acute infarct on left fronto-parietal region. Had extensive discussions with both patient and patient family, 45 min. Patient initially did not wish to leave, as there is some lack of insight into diagnosis as well as treatment and management of her diagnoses. Patient does seem to understand partially, however has difficulty communicating due to her receptive and expressive aphasia as well. Patient is calm, is making jokes, and does seem to understand that it is not safe for her to go home just yet, and requires further PT and OT to establish as much independence as possible. After extensive discussion along with staff, patient is now amenable for discharge to [facility]. HD stable, NAD. 1. Acute CVA patient remained with right facial droop and right sided weakness but claimed feeling improvement physiatry consult with Dr Geeta Zhao on neuro consult continue PT/OT/ST continue ASA, Lipitor and Coumadin Coumadin 4mg PO today 2. Gout Indocin prn 3. HTN BP controlled continue Coreg, Clonidine, Losartan and Nifedipine plus HCTZ 4. DM2 BS relatively controlled Levemir 15 units SC HS 5. CAD continue statin, ASA, BB 6. DVT prophylaxis patient on Coumadin Discharge Exam - Head Exam Head Exam: NORMAL INSPECTION, NORMOCEPHALIC - Eye Exam Eye Exam: EOMI, Normal appearance, PERRL Pupil Exam: NORMAL ACCOMODATION - ENT Exam ENT Exam: Mucous Membranes Moist, Normal Oropharynx - Respiratory Exam Respiratory Exam: Clear to PA & Lateral, NORMAL BREATHING PATTERN - Cardiovascular Exam Cardiovascular Exam: RRR, +S1, +S2 - GI/Abdominal Exam GI & Abdominal Exam: Normal Bowel Sounds, Unremarkable - Extremities Exam Extremities exam: normal capillary refill, pedal pulses present - Back Exam Back exam: absent: CVA tenderness (L), CVA tenderness (R) - Neurological Exam Neurological exam: Alert, Reflexes Normal Additional comments: some receptive and expressive aphasia, which has significantly improved from admission - Psychiatric Exam Psychiatric exam: Normal Affect, Normal Mood - Skin Skin Exam: Dry, Warm Discharge Plan - Follow Up Plan Disposition: TRANSF TO SNF Instructions: Insulin Detemir, Polyethylene Glycol 3350, Stroke, Aspirin, Atorvastatin, Carvedilol, Clonidine, Docusate, Famotidine, Hydrochlorothiazide, Ipratropium and Albuterol, Losartan, Nifedipine, Valproic Acid and Derivatives Referrals: Po De Santiago DO [Primary Care Provider] -
== END 2017-10-09 13:00 | DRG 57 ==
PROVIDERS: ADMIT Internal Medicine; ATTEND Internal Medicine
PROC: F07Z9FZ Gait Training/Functional Ambulation Treatment using Assistive, Adaptive, Supportive or Protective Equipment (ICD-10-PCS; principal; 2017-09-09)
PROC: F06Z3MZ Aphasia Treatment using Augmentative / Alternative Communication Equipment (ICD-10-PCS; 2017-09-09)
PROC: F08Z4FZ Home Management Treatment using Assistive, Adaptive, Supportive or Protective Equipment (ICD-10-PCS; 2017-09-09)
PROC: F07L6FZ Therapeutic Exercise Treatment of Musculoskeletal System - Lower Back / Lower Extremity using Assistive, Adaptive, Supportive or Protective Equipment (ICD-10-PCS; 2017-09-10)
PROC: F07K6FZ Therapeutic Exercise Treatment of Musculoskeletal System - Upper Back / Upper Extremity using Assistive, Adaptive, Supportive or Protective Equipment (ICD-10-PCS; 2017-09-10)
DX: I69.351 Hemiplegia and hemiparesis following cerebral infarction affecting right dominant side (principal); I69.320 Aphasia following cerebral infarction; I69.392 Facial weakness following cerebral infarction; I48.91 Unspecified atrial fibrillation; E11.22 Type 2 diabetes mellitus with diabetic chronic kidney disease; I13.0 Hypertensive heart and chronic kidney disease with heart failure and stage 1 through stage 4 chronic kidney disease, or unspecified chronic kidney disease; I50.9 Heart failure, unspecified; I48.92 Unspecified atrial flutter; R26.89 Other abnormalities of gait and mobility; I25.10 Atherosclerotic heart disease of native coronary artery without angina pectoris; N18.2 Chronic kidney disease, stage 2 (mild); K21.9 Gastro-esophageal reflux disease without esophagitis; R32 Unspecified urinary incontinence; R15.9 Full incontinence of feces; M10.9 Gout, unspecified; M25.572 Pain in left ankle and joints of left foot; Z95.5 Presence of coronary angioplasty implant and graft; Z79.01 Long term (current) use of anticoagulants; Z79.4 Long term (current) use of insulin; Z86.010 Personal history of colon polyps; Z88.6 Allergy status to analgesic agent; Z88.2 Allergy status to sulfonamides